=== PATIENT | female | born 1960 | race American Indian/Alaskan Native ===

== ENCOUNTER 2016-12-01 23:49 | Inpatient (IN) | payer OTHER ==
[2016-12-01 23:49] VITALS: BMI 34.4
--- NOTE | 2016-12-02 00:55 | C.PDOC ---
History Of Present Illness Patient, with a past medical history of gastritis, gall bladder disease, diverticulitis, kidney stones and CAD, presents to the ED complaining of abdominal pain since yesterday. Patient also complains of nausea and vomiting. She has been unable to tolerate po. Patient denies fever or chills. Time Seen by Provider: 12/02/16 00:55 Chief Complaint (Nursing): Abdominal Pain History Per: Patient History/Exam Limitations: no limitations Onset/Duration Of Symptoms: Days (1) Current Symptoms Are (Timing): Still Present Context: Other Severity: Mild Pain Scale Rating Of: 3 Location Of Pain/Discomfort: Diffuse Radiation Of Pain To:: None Quality Of Discomfort: "Pain" Associated Symptoms: Nausea, Vomiting Alleviating Factors: None Last Bowel Movement: Today Recent travel outside of the [place]: No Past Medical History Reviewed: Historical Data, Nursing Documentation, Vital Signs Vital Signs: Last Vital Signs Temp 98.4 F 12/02/16 05:13 Pulse 83 12/02/16 05:13 Resp 16 12/02/16 05:13 BP 149/87 12/02/16 05:13 Pulse Ox 97 12/02/16 05:13 - Medical History PMH: Anxiety, Arthritis (LBP/SCIATICA), Asthma, CAD, COPD (ASTHMA), Depression, Diverticulitis, Gastritis, Gall Bladder Disease, HTN, Hypercholesterolemia, Kidney Stones, Malignancy (CANCER?), Pancreatitis, Seizures Surgical History: Appendectomy, Cholecystectomy, Endoscopy - [facility] Procedures CLOSED ENDOSCOPIC BIOPSY OF LARGE INTESTINE (04/26/13) ENDO EXCISION/DEST OF LESION OR TISSUE OF STOMACH (12/28/13) ESOPHAGOGASTRODUODENOSCOPY [EGD] W/CLOSED BIOPSY (04/26/13) INCIS W REM OF FORIEGN BODY OR DEV FROM SKIN & SUBCUT TISSUE (10/10/13) OTHER ENDOSCOPY OF SM INTEST (02/06/13) VENOUS CATHETERIZATION NEC (02/13/14) Family History: States: Unknown Family Hx - Social History Hx Tobacco Use: No Hx Alcohol Use: Yes Hx Substance Use: No - Immunization History Hx Tetanus Toxoid Vaccination: No Hx Influenza Vaccination: Yes Hx Pneumococcal Vaccination: Yes Review Of Systems Constitutional: Negative for: Fever, Chills ENT: Negative for: Throat Pain Cardiovascular: Negative for: Chest Pain, Palpitations Respiratory: Negative for: Shortness of Breath Gastrointestinal: Positive for: Nausea, Vomiting, Abdominal Pain Genitourinary: Negative for: Dysuria Musculoskeletal: Negative for: Back Pain Skin: Negative for: Rash, Lesions Neurological: Negative for: Weakness Psych: Negative for: Anxiety Physical Exam - Physical Exam Appears: Non-toxic, No Acute Distress Skin: Warm, Dry Head: Atraumatic, Normacephalic Eye(s): bilateral: Normal Inspection Oral Mucosa: Moist Neck: Supple Chest: Symmetrical Cardiovascular: Rhythm Regular Respiratory: No Rales, No Rhonchi, No Wheezing Gastrointestinal/Abdominal: Soft, Tenderness (diffuse), Distention, Guarding ( voluntary), No Rebound, Other (large midline surgical scar (+)healed) Back: No CVA Tenderness Extremity: Pedal Edema (trace) Extremity: Bilateral: Atraumatic, Normal Color And Temperature Neurological/Psych: Oriented x3, Normal Speech, Normal Cognition Gait: Steady ED Course And Treatment - Laboratory Results Result Diagrams: 12/02/16 01:17 04 01:17 O2 Sat by Pulse Oximetry: 97 (RA) Pulse Ox Interpretation: Normal Progress Note: Plan: Labs, Benadryl, Pepcid, IV fluids, Toradol, Zofran Disposition Discussed With : Felisa Ventura Comment: accepted the pt on his service and took over the care at 5:33 AM Doctor Will See Patient In The: Hospital Counseled Patient/Family Regarding: Studies Performed, Diagnosis - Disposition Disposition: HOSPITALIZED Disposition Time: 00:55 Condition: FAIR - POA Present On Arrival: Poor Glycemic Control - Clinical Impression Clinical Impression: Abdominal pain, Nausea, Vomiting, Small bowel obstruction - Scribe Statement The provider has reviewed the documentation as recorded by the Scribjordin Cook Provider Attestation: All medical record entries made by the Scribe were at my direction and personally dictated by me. I have reviewed the chart and agree that the record accurately reflects my personal performance of the history, physical exam, medical decision making, and the department course for this patient. I have also personally directed, reviewed, and agree with the discharge instructions and disposition. Decision To Admit - Pt Status Changed To: Hospital Disposition Of: Inpatient - Admit Certification Admit to Inpatient:: After my assessment, the patient will require hospitalization for at least two midnights. This is because of the severity of symptoms shown, intensity of services needed, and/or the medical risk in this patient being treated as an outpatient. - InPatient: Physician Admission Certification:: After my assessment, the patient will require hospitalization for at least two midnights. This is because of the severity of symptoms shown, intensity of services needed, and/or the medical risk in this patient being treated as an outpatient. - . Bed Request Type: Regular Admitting Physician: Felisa Ventura Patient Diagnosis: Abdominal pain, Nausea, Vomiting, Small bowel obstruction
[2016-12-02] MEDS ORDERED: Sodium Chloride 0.9% 1,000 ML IV ONE (01:01)
[2016-12-02] MEDS ORDERED: DiphenhydrAMINE 50 mg/ml Inj IVP STA (01:14)
[2016-12-02] MEDS ORDERED: Sodium Chloride 0.9% 1,000 ML ONE (01:17)
[2016-12-02 01:23] LABS: BASO % 0.2 % (0.0-2.0); HEMATOCRIT 37.3 % (34.0-47.0); LYMPH # 0.7 K/uL (1.0-4.3); MEAN CELL VOLUME 78.8 fL (81.0-99.0); MEAN CORPUSCULAR HEMOGLOBIN 25.1 pg (27.0-31.0); MEAN CORPUSCULAR HGB CONC 31.9 g/dL (33.0-37.0); MEAN PLATELET VOLUME 8.9 fL (7.2-11.7); MONO # 0.7 K/uL (0.0-0.8); MONO % 3.9 % (0.0-10.0); PLATELET COUNT 297 K/uL (130-400); RED CELL DISTRIBUTION WIDTH 16.1 % (11.5-14.5); WHITE BLOOD COUNT 17.5 K/uL (4.8-10.8)
[2016-12-02] MEDS ORDERED: DiphenhydrAMINE 50 mg/ml Inj ONE (01:28)
[2016-12-02 01:35] LABS: CHLORIDE 102 mmol/L (98-107); POTASSIUM 3.2 mmol/L (3.6-5.2); SODIUM 144 mmol/L (132-148)
[2016-12-02 01:37] LABS: BILIRUBIN,TOTAL 0.6 mg/dL (0.2-1.3); CARBON DIOXIDE 27 mmol/L (22-30); GFR AFRICAN-AMERICAN > 60
[2016-12-02 01:38] LABS: ALB/GLOB RATIO 1.1 (1.0-2.1); ALKALINE PHOSPHATASE 109 U/L (38-126); ALT/SGPT 18 U/L (9-52); AST/SGOT 21 U/L (14-36); BLOOD UREA NITROGEN 10 mg/dL (7-17); CALCIUM 8.7 mg/dl (8.6-10.4); GLUCOSE,RANDOM 130 mg/dL (65-105); TOTAL PROTEIN 8.2 g/dL (6.3-8.3)
[2016-12-02 01:52] LABS: NEUTROPHIL 91 % (50-75); TOTAL CELLS COUNTED 100
[2016-12-02] MEDS ORDERED: Piperacillin/Tazobact 3.375 gm 100 ML IVPB STA (01:55)
[2016-12-02] MEDS ORDERED: HYDROmorphone 1 mg/ml ISec ONE ×2 (02:22→05:34)
[2016-12-02] MEDS ORDERED: HYDROmorphone 1 mg/ml ISec IVP STA ×2 (02:25→05:37)
[2016-12-02] MEDS ORDERED: Iohexol 350mg/ml 100 ML ONE (02:30)
[2016-12-02] MEDS ORDERED: Iodixanol 320 mg/ml 150 ml Bottle IV ONE (03:13)
[2016-12-02 03:31] LABS: RBC URINE 1 /hpf (0-3); URINE BACTERIA RARE (<OCC); URINE BILIRUBIN NEGATIVE (NEGATIVE); URINE BLOOD NEGATIVE (NEGATIVE); URINE COLOR Yellow (YELLOW); URINE GLUCOSE (UA) NORMAL (Normal); URINE HYALINE CAST 0-2 /lpf (0-2); URINE KETONE NEGATIVE (NEGATIVE); URINE LEUKOCYTE ESTERASE 1+ Leu/uL (Negative); URINE PROTEIN 1+ mg/dL (NEGATIVE); URINE UROBILINOGEN NORMAL mg/dL (0.2-1.0); WBC URINE 14 /hpf (0-5)
[2016-12-02] MEDS ORDERED: Dextrose 5%/0.45% NS 1,000 ML IV SCH (06:00)
[2016-12-02] MEDS ORDERED: ALBUTEROL 0.083% INH PRN (06:06)
[2016-12-02] MEDS ORDERED: Fluticasone-Salmeterol 250-50mcg Diskus IH PRN (06:06)
[2016-12-02] MEDS ORDERED: CAMBIA PO PRN (06:06)
[2016-12-02] MEDS ORDERED: CARAFATE PO SCH (07:30)
[2016-12-02] MEDS ORDERED: Dextrose 5%/0.45% NS 1,000 ML IV ONE (07:41)
[2016-12-02] MEDS ORDERED: Potassium Chloride 20 mEq ER Tab PO ONE (07:54)
--- NOTE | 2016-12-02 09:13 | CP.PCM.PN ---
Subjective - Date & Time of Evaluation Date of Evaluation: 12/02/16 Time of Evaluation: 07:00 - Subjective Subjective: Medicine Note- Dr. Ventura's service Patient was seen and examined at bedside. Patient has hx of seizures, lupus, asthma, htn, colitis, chronic pancreatitis. She complains of abdominal pain that started about 2 weeks ago, mid epigastric, but did not seek treatment because it had self resolved. On Thursday, the pain because very intense, over 10/ 10, and she began to vomit multiple times. She says she was unable to tolerate food. Patient reports she has had a colectectomy in the past due to complications of back closer-related laparoscopic surgery and has had multiple surgeries for lysis of adhesions. She reports she has had diarrhea recently. Objective - Vital Signs/Intake and Output Vital Signs (last 24 hours): Temp Pulse Resp BP Pulse Ox 98.4 F 83 16 149/87 97 12/02/16 05:13 12/02/16 05:13 12/02/16 05:13 12/02/16 05:13 12/02/16 05:42 - Medications Medications: Current Medications Alprazolam (Xanax) 1 mg PO TID [facility] Atenolol (Tenormin) 100 mg PO DAILY [facility] Baclofen (Lioresal) 10 mg PO QID [facility] Fluticasone Propionate (Flonase) 1 spr АНДРЕЙ DAILY [facility] Home Med (Albuterol 0.083%) 2 pud INH DAILY PRN PRN Reason: Shortness of Breath Home Med (Ambien) 10 mg PO HS [facility] Home Med (Brinzolamide [Azopt]) 1 drop OU BID [facility] Home Med (Calcifolic-D) 1 tab PO BID [facility] Home Med (Cambia) 50 mg PO DAILY PRN PRN Reason: Pain Home Med (Lipase/Protease/Amylase [Zenpep Dr 25,000 Units Capsule]) 1 each PO TID [facility] Home Med (Lumigan 2.5 Ml) 1 drop OU HS [facility] Home Med (Pancrelipase [Pancrease Mt 32]) 1 tab PO BID [facility] Home Med (Vimpat) 200 mg PO BID [facility] Home Med (Zoloft) 100 mg PO BID [facility] Hydromorphone HCl (Dilaudid) 1 mg IVP Q4H PRN PRN Reason: Pain, severe (8-10) Dextrose/Sodium Chloride (Dextrose 5%/0.45% Ns 1000 Ml) 1,000 mls @ 100 mls/hr IV .Q10H [facility] Last Admin: 12/02/16 08:10 Dose: 100 mls/hr Pantoprazole Sodium (Protonix Inj) 40 mg IVP DAILY [facility] Fluticasone/Salmeterol (Advair Diskus 250/50) 1 puff IH Q12 PRN PRN Reason: Shortness of Breath Sucralfate (Carafate Oral Susp) 1 gm PO ACTID [facility] - Labs Labs: PT 11.1 SECONDS (9.7-12.2) 12/02/16 01:17 INR 1.0 12/02/16 01:17 APTT 26 SECONDS (21-34) 12/02/16 01:17 - Constitutional Appears: Non-toxic, No Acute Distress - Head Exam Head Exam: ATRAUMATIC, NORMAL INSPECTION, NORMOCEPHALIC - Eye Exam Pupil Exam: NORMAL ACCOMODATION, PERRL - ENT Exam ENT Exam: Mucous Membranes Moist - Respiratory Exam Respiratory Exam: Clear to Ausculation Bilateral, NORMAL BREATHING PATTERN. absent: Prolonged Expiratory Phase, Rales, Rhonchi, Wheezes - Cardiovascular Exam Cardiovascular Exam: REGULAR RHYTHM, +S1, +S2 - GI/Abdominal Exam GI & Abdominal Exam: Soft, Tenderness (epigastric, RUQ), Normal Bowel Sounds. absent: Diminished Bowel Sounds, Hernia, Hypoactive Bowel Sounds - Extremities Exam Extremities Exam: Normal Capillary Refill, Normal Inspection - Neurological Exam Neurological Exam: Alert, Awake, Oriented x3 - Psychiatric Exam Psychiatric exam: Normal Affect, Normal Mood - Skin Skin Exam: Dry, Intact, Normal Color, Warm Assessment and Plan (1) Partial small bowel obstruction Assessment & Plan: Consult GI- Dr. Pena Consult Surgery- Dr. Vargas Dilaudid 1mg IVP Q4h PRN Baclofen PO QID Abdomen/Pelvis CT w IV contrast- s/p prior SB surgery. Findings consistent with partial small bowel obstruction. 17mm indeterminate lesiona rising from upper pole of right kidney Keep patient NPO except meds f/u stool occult Status: Acute (2) Insomnia Assessment & Plan: Ambien 10mg PO HS Status: Chronic (3) HTN (hypertension) Assessment & Plan: Atenolol 100mg PO Daily Status: Acute (4) Asthma Assessment & Plan: Continue Advair 25/50mcg 1 puff IH Q12h Continue Albuterol 2 puff INH Q6h PRN Status: Acute (5) Anxiety Assessment & Plan: Xanax 1mg PO TID Status: Acute (6) Major depression Assessment & Plan: Continue Zoloft 100mg PO BID Status: Chronic (7) Seizure disorder Assessment & Plan: Vimpat 200mg PO BID Status: Chronic (8) Chronic pancreatitis Assessment & Plan: Zenpep 25,000 PO TID Status: Acute (9) Prophylactic measure Assessment & Plan: Protonix 40mg IVP Daily SCDs Status: Acute
[2016-12-02] MEDS ORDERED: Albuterol HFA 90 mcg/actuation (8 g) INH PRN (09:23)
[2016-12-02] MEDS: HYDROmorphone 1 mg/ml ISec IVP PRN ×3 (09:59→22:29)
[2016-12-02] MEDS ORDERED: AMYLASE PO SCH (10:00)
[2016-12-02] MEDS ORDERED: PROTEASE PO SCH (10:00)
[2016-12-02] MEDS ORDERED: [UNRECOGNIZED DRUG - OTHER] PO SCH (10:00)
[2016-12-02] MEDS ORDERED: Fluticasone-Salmeterol 250-50mcg Diskus IH SCH (10:00)
[2016-12-02] MEDS ORDERED: BRINZOLAMIDE OU SCH (10:00)
[2016-12-02] MEDS ORDERED: ZOLOFT 100 MG PO SCH (10:00)
[2016-12-02] MEDS ORDERED: PANCRELIPASE PO SCH (10:00)
[2016-12-02] MEDS ORDERED: VIMPAT 200 MG PO SCH ×2 (10:00→18:00)
[2016-12-02] MEDS ORDERED: LIPASE PO SCH (10:00)
--- NOTE | 2016-12-02 11:19 | CT ---
PROCEDURE: CT Abdomen and Pelvis with contrast HISTORY: abd pain COMPARISON: CT abdomen and pelvis with contrast performed 02/13/14 TECHNIQUE: Contrast dose: 100 mL Visipaque Radiation dose: Total exam DLP = 987.96 mGy-cm. This CT exam was performed using one or more of the following dose reduction techniques: Automated exposure control, adjustment of the mA and/or kV according to patient size, and/or use of iterative reconstruction technique. FINDINGS: LOWER THORAX: Bibasilar atelectasis or scarring. Punctate right lower lobe calcified granulomas. No visible pleural effusion or pneumothorax. LIVER: 4 mm hepatic dome hypodensity, too small to characterize ; statistically likely cyst or hemangioma. GALLBLADDER AND BILE DUCTS: Cholecystectomy. Mild intrahepatic and extrahepatic biliary ductal dilatation, likely related to prior cholecystectomy. PANCREAS: Unremarkable. SPLEEN: Unremarkable. ADRENALS: Unremarkable. KIDNEYS AND URETERS: The kidneys enhance symmetrically. Indeterminate 1.6 cm medial upper pole right renal lesion. 17 mm hypodense lesion, left renal lesion measures approximately 10 HU, likely cyst. Additional too small to characterize hypodensities/renal cysts. VASCULATURE: IVC filter. No aortic aneurysm. BOWEL: The stomach is nondistended. Lack of oral contrast limits evaluation for bowel pathology. The patient has undergone prior bowel surgery. Multiple dilated fluid-filled loops of small bowel evident with collapsed distal small bowel identified in the right lower quadrant at a region anastomosis, likely at the transition point. APPENDIX: The appendix is not identified, presumably due to appendectomy. Correlate with surgical history. PERITONEUM: No significant free fluid. No definite free air. LYMPH NODES: No bulky adenopathy identified. BLADDER: Unremarkable. REPRODUCTIVE: Uterus is present. BONES: Degenerative changes. OTHER FINDINGS: None. IMPRESSION: Status post prior small bowel surgery. Multiple dilated fluid-filled loops of small bowel identified with suspected transition point in the right lower quadrant at the region of anastomosis. Findings consistent with partial small bowel obstruction. Correlate clinically. Indeterminate 1.6 cm medial right upper pole renal lesion, grossly stable in size and appearance as compared to prior study. If not already performed or characterized, ultrasound or MRI recommended for further evaluation. Additionally, bilateral renal cysts and too small to characterize renal lesions are evident. Additional incidental findings as above. Preliminary impression was provided by virtual radiologic.
[2016-12-02] MEDS: Fluticasone Nasal 50 mcg/Spray NAS SCH (12:30)
[2016-12-02] MEDS: Sucralfate 1 gm/10 ml Oral Susp UD PO SCH ×2 (15:19→17:53)
[2016-12-02] MEDS: Multiple Vitamins Tab PO SCH (15:20)
[2016-12-02] MEDS: LIPASE/PROTEASE/AMYLASE 4,200 U ECC PO SCH ×2 (15:21→17:54)
[2016-12-02] MEDS: Dorzolamide 2% Opht Sol 10ml OU SCH ×2 (15:26→18:20)
--- NOTE | 2016-12-02 16:48 | CP.PCM.PN ---
Subjective - Date & Time of Evaluation Date of Evaluation: 12/02/16 Time of Evaluation: 16:43 - Subjective Subjective: 56 y/o female with SBO, NGT #16 fr to right nare inserted as per Dr. Vargas order, NGT to LCWS, Pt tolerated well, Xray ordered for NGT placement Objective - Vital Signs/Intake and Output Vital Signs (last 24 hours): Temp Pulse Resp BP Pulse Ox 97.7 F 89 18 132/85 96 12/02/16 09:43 12/02/16 09:43 12/02/16 09:43 12/02/16 09:43 12/02/16 09:43 - Medications Medications: Current Medications Albuterol (Ventolin Hfa 90 Mcg/Actuation (8 G)) 0 puff INH Q6H PRN PRN Reason: Shortness of Breath Alprazolam (Xanax) 1 mg PO TID [facility] Last Admin: 12/02/16 15:22 Dose: Not Given Atenolol (Tenormin) 100 mg PO DAILY [facility] Last Admin: 12/02/16 15:28 Dose: Not Given Baclofen (Lioresal) 10 mg PO QID [facility] Last Admin: 12/02/16 15:21 Dose: Not Given Dorzolamide HCl (Trusopt) 0 ml OU TID [facility] Last Admin: 12/02/16 15:26 Dose: 1 drop Fluticasone Propionate (Flonase) 1 spr АНДРЕЙ DAILY [facility] Last Admin: 12/02/16 12:30 Dose: 1 spr Home Med (Vimpat) 200 mg PO BID [facility] Hydromorphone HCl (Dilaudid) 1 mg IVP Q4H PRN PRN Reason: Pain, severe (8-10) Last Admin: 12/02/16 09:59 Dose: 1 mg Potassium Chloride/Dextrose/Sod Cl (Potassium Chl 20 Meq In D5-1/2ns) 1,000 mls @ 125 mls/hr IV .Q8H [facility] Latanoprost (Xalatan Opht) 0 ml OU HS [facility] Metoclopramide HCl (Reglan) 5 mg IVP ACHS [facility] Multivitamins (Hexavitamin) 1 tab PO DAILY [facility] Last Admin: 12/02/16 15:20 Dose: Not Given Pantoprazole Sodium (Protonix Inj) 40 mg IVP DAILY [facility] Last Admin: 12/02/16 15:29 Dose: 40 mg Fluticasone/Salmeterol (Advair Diskus 250/50) 1 puff IH Q12 [facility] Sertraline HCl (Zoloft) 100 mg PO BID [facility] Sucralfate (Carafate Oral Susp) 1 gm PO ACTID [facility] Last Admin: 12/02/16 15:19 Dose: Not Given Zolpidem Tartrate (Ambien) 5 mg PO HS [facility] - Labs Labs: PT 11.1 SECONDS (9.7-12.2) 12/02/16 01:17 INR 1.0 12/02/16 01:17 APTT 26 SECONDS (21-34) 12/02/16 01:17
[2016-12-02] MEDS: Potassium Ch 20mEq in D5-1/2NS 1,000 ML IV SCH ×2 (17:44→23:37)
--- NOTE | 2016-12-02 17:48 | RAD ---
HISTORY: to confirm NGT placement COMPARISON: 06/07/2015 FINDINGS: LUNGS: NG tube extending into the stomach. Moderate venous congestion. Bibasilar airspace opacity. Pacer device projecting over the left lateral chiquis thorax. PLEURA: As above. CARDIOVASCULAR: Cardiomegaly. OSSEOUS STRUCTURES: Degenerative changes the spine shoulders. VISUALIZED UPPER ABDOMEN: Normal. OTHER FINDINGS: None. IMPRESSION: NG tube extending into the stomach. Moderate venous congestion. Bibasilar airspace opacity. Pacer device projecting over the left lateral chiquis thorax.
[2016-12-02] MEDS: Fluticasone-Salmeterol 250-50mcg Diskus IH SCH (19:22)
[2016-12-02] MEDS: Latanoprost 2.5 ml Opht Soln OU SCH (21:17)
[2016-12-02] MEDS: Piperacillin/Tazobact 3.375 GM in Sodium Chloride 0.9% 100 ML IVPB SCH (21:18)
[2016-12-03] MEDS: Potassium Ch 20mEq in D5-1/2NS 1,000 ML IV SCH ×2 (02:37→09:32)
[2016-12-03] MEDS: HYDROmorphone 1 mg/ml ISec IVP PRN ×4 (05:08→18:11)
[2016-12-03] MEDS: Piperacillin/Tazobact 3.375 GM in Sodium Chloride 0.9% 100 ML IVPB SCH ×3 (05:15→22:19)
[2016-12-03] MEDS: Sucralfate 1 gm/10 ml Oral Susp UD PO SCH ×3 (07:40→16:49)
[2016-12-03] MEDS: Fluticasone-Salmeterol 250-50mcg Diskus IH SCH ×2 (07:42→19:37)
[2016-12-03 08:03] LABS: BASO % 0.3 % (0.0-2.0); EOS # 0.1 K/uL (0.0-0.7); EOS % 1.1 % (0.0-4.0); HEMATOCRIT 33.9 % (34.0-47.0); LYMPH # 1.3 K/uL (1.0-4.3); LYMPH % 21.5 % (20.0-40.0); MEAN CELL VOLUME 79.2 fL (81.0-99.0); MEAN CORPUSCULAR HEMOGLOBIN 25.2 pg (27.0-31.0); MEAN CORPUSCULAR HGB CONC 31.8 g/dL (33.0-37.0); MEAN PLATELET VOLUME 8.8 fL (7.2-11.7); MONO # 0.4 K/uL (0.0-0.8); MONO % 7.4 % (0.0-10.0); NRBC % 0.2 % (0.0-2.0); RED CELL DISTRIBUTION WIDTH 16.3 % (11.5-14.5)
[2016-12-03 08:07] LABS: WHITE BLOOD COUNT 5.9 K/uL (4.8-10.8)
[2016-12-03 08:14] LABS: CHLORIDE 106 mmol/L (98-107)
[2016-12-03 08:15] LABS: POTASSIUM 2.8 mmol/L (3.6-5.2); SODIUM 144 mmol/L (132-148)
[2016-12-03 08:17] LABS: ALB/GLOB RATIO 1.1 (1.0-2.1); ALKALINE PHOSPHATASE 118 U/L (38-126); AST/SGOT 32 U/L (14-36); BILIRUBIN,TOTAL 0.5 mg/dL (0.2-1.3); BLOOD UREA NITROGEN 5 mg/dL (7-17); CARBON DIOXIDE 26 mmol/L (22-30); GFR AFRICAN-AMERICAN > 60; GLUCOSE,RANDOM 105 mg/dL (65-105); TOTAL PROTEIN 6.8 g/dL (6.3-8.3)
[2016-12-03 08:18] LABS: ALT/SGPT 30 U/L (9-52); CALCIUM 7.8 mg/dl (8.6-10.4)
[2016-12-03] MEDS ORDERED: Barium Sulfate for Susp 96% w/w 176g Bottle PR ONE (09:00)
[2016-12-03] MEDS ORDERED: Barium Sulfate for Susp 98% w/w 340g Bottle ONE (09:00)
--- NOTE | 2016-12-03 09:07 | CP.PCM.PN ---
Subjective - Date & Time of Evaluation Date of Evaluation: 12/03/16 Time of Evaluation: 09:15 - Subjective Subjective: Medicine note- Dr. Ventura's service Patient was seen and examined at bedside. Patient reports she feels like 'the walking '. She still has significant abdominal pain and nausea, no vomiting. No events overnight, per nursing. NGT in place by Dr. Vargas. Objective - Vital Signs/Intake and Output Vital Signs (last 24 hours): Temp Pulse Resp BP Pulse Ox 98.1 F 89 20 155/85 H 96 12/03/16 00:00 12/03/16 00:19 12/03/16 00:00 12/03/16 00:00 12/03/16 00:00 Intake and Output: 12/03/16 12/03/16 06:59 18:59 Intake Total 1150 Output Total 2800 Balance -1650 - Medications Medications: Current Medications Albuterol (Ventolin Hfa 90 Mcg/Actuation (8 G)) 0 puff INH Q6H PRN PRN Reason: Shortness of Breath Alprazolam (Xanax) 1 mg PO TID [facility] Last Admin: 12/02/16 18:00 Dose: Not Given Atenolol (Tenormin) 100 mg PO DAILY [facility] Last Admin: 12/02/16 15:28 Dose: Not Given Baclofen (Lioresal) 10 mg PO QID [facility] Last Admin: 12/02/16 22:40 Dose: Not Given Dorzolamide HCl (Trusopt) 0 ml OU TID [facility] Last Admin: 12/02/16 18:20 Dose: 1 drop Fluticasone Propionate (Flonase) 1 spr АНДРЕЙ DAILY [facility] Last Admin: 12/02/16 12:30 Dose: 1 spr Hydromorphone HCl (Dilaudid) 1 mg IVP Q4H PRN PRN Reason: Pain, severe (8-10) Last Admin: 12/03/16 05:08 Dose: 1 mg Potassium Chloride/Dextrose/Sod Cl (Potassium Chl 20 Meq In D5-1/2ns) 1,000 mls @ 125 mls/hr IV .Q8H [facility] Last Admin: 12/03/16 02:37 Dose: 125 mls/hr Levetiracetam 750 mg/ Sodium (Chloride) 107.5 mls @ 420 mls/hr IVPB Q12H [facility] Last Admin: 12/03/16 05:06 Dose: 420 mls/hr Piperacillin Sod/Tazobactam (Sod 3.375 gm/ Sodium Chloride) 100 mls @ 100 mls/ hr IVPB Q8H [facility] Last Admin: 12/03/16 05:15 Dose: 100 mls/hr Latanoprost (Xalatan Opht) 0 ml OU HS [facility] Last Admin: 12/02/16 21:17 Dose: 2.5 ml Multivitamins (Hexavitamin) 1 tab PO DAILY [facility] Last Admin: 12/02/16 15:20 Dose: Not Given Ondansetron HCl (Zofran Inj) 4 mg IVP DAILY@ONCE PRN PRN Reason: Nausea/Vomiting Pantoprazole Sodium (Protonix Inj) 40 mg IVP DAILY [facility] Last Admin: 12/02/16 15:29 Dose: 40 mg Fluticasone/Salmeterol (Advair Diskus 250/50) 1 puff IH RQ12 [facility] Last Admin: 12/03/16 07:42 Dose: 1 puff Sertraline HCl (Zoloft) 100 mg PO BID [facility] Last Admin: 12/02/16 18:00 Dose: Not Given Sucralfate (Carafate Oral Susp) 1 gm PO ACTID [facility] Last Admin: 12/03/16 07:40 Dose: Not Given Zolpidem Tartrate (Ambien) 5 mg PO HS [facility] Last Admin: 12/02/16 22:39 Dose: Not Given - Labs Labs: 12/03/16 07:49 12/03/16 07:49 PT 11.1 SECONDS (9.7-12.2) 12/02/16 01:17 INR 1.0 12/02/16 01:17 APTT 26 SECONDS (21-34) 12/02/16 01:17 - Constitutional Appears: Non-toxic, No Acute Distress - Head Exam Head Exam: ATRAUMATIC, NORMAL INSPECTION, NORMOCEPHALIC - Eye Exam Pupil Exam: NORMAL ACCOMODATION - ENT Exam ENT Exam: Mucous Membranes Moist - Respiratory Exam Respiratory Exam: Clear to Ausculation Bilateral, NORMAL BREATHING PATTERN. absent: Prolonged Expiratory Phase, Rales, Rhonchi, Wheezes - GI/Abdominal Exam GI & Abdominal Exam: Soft, Tenderness (significant LUQ, RLQ tenderness), Hypoactive Bowel Sounds - Neurological Exam Neurological Exam: Alert, Awake, CN II-XII Intact, Oriented x3 - Psychiatric Exam Psychiatric exam: Normal Affect, Normal Mood - Skin Skin Exam: Dry, Intact, Normal Color, Warm Assessment and Plan (1) Partial small bowel obstruction Status: Acute (2) Insomnia Status: Chronic (3) HTN (hypertension) Status: Acute (4) Asthma Status: Acute (5) Anxiety Status: Acute (6) Major depression Status: Chronic (7) Seizure disorder Status: Chronic (8) Chronic pancreatitis Status: Acute (9) Prophylactic measure Status: Acute - Assessment and Plan (Free Text) Assessment: (1) Partial small bowel obstruction Assessment & Plan: Consult GI- Dr. Pena- scheduled for EGD today Consult Surgery- Dr. Vargas- pending GI X rays Dilaudid 1mg IVP Q4h PRN Baclofen PO QID Abdomen/Pelvis CT w IV contrast- s/p prior SB surgery. Findings consistent with partial small bowel obstruction. 17mm indeterminate lesiona rising from upper pole of right kidney Keep patient NPO except meds f/u stool occult Zofran 4mg IVP Q6h PRN Status: Acute (2) Insomnia Assessment & Plan: Ambien 10mg PO HS Status: Chronic (3) HTN (hypertension) Assessment & Plan: Atenolol 100mg PO Daily Status: Acute (4) Asthma Assessment & Plan: Continue Advair 25/50mcg 1 puff IH Q12h Continue Albuterol 2 puff INH Q6h PRN Status: Acute (5) Anxiety Assessment & Plan: Xanax 1mg PO TID Status: Acute (6) Major depression Assessment & Plan: Continue Zoloft 100mg PO BID Status: Chronic (7) Seizure disorder Assessment & Plan: Vimpat 200mg PO BID is unavailable. Consult Neuro- Dr. Contreras Continue Keppra 75mg IVPB Q12h Status: Chronic (8) Chronic pancreatitis Assessment & Plan: Zenpep 25,000 PO TID Status: Acute (9) Prophylactic measure Assessment & Plan: Protonix 40mg IVP Daily SCDs Status: Acute
[2016-12-03] MEDS: LIPASE/PROTEASE/AMYLASE 4,200 U ECC PO SCH ×3 (09:31→18:13)
[2016-12-03] MEDS: Dorzolamide 2% Opht Sol 10ml OU SCH ×3 (09:53→18:28)
[2016-12-03] MEDS: Multiple Vitamins Tab PO SCH (09:54)
[2016-12-03] MEDS: Fluticasone Nasal 50 mcg/Spray NAS SCH (09:54)
[2016-12-03] MEDS ORDERED: Fluticasone Nasal 50 mcg/Spray NAS SCH (10:15)
[2016-12-03] MEDS ORDERED: Midazolam 2 MG/2 ML VIAL ONE (12:39)
[2016-12-03] MEDS ORDERED: Propofol 10 mg/ml Inj (20 ML) ONE (12:39)
[2016-12-03] MEDS: Potassium Chl 40 mEq in D5-1/2 1,000 ML IV SCH ×3 (12:53→22:59)
[2016-12-03] MEDS: DiphenhydrAMINE 50 mg/ml Inj IVP PRN (18:11)
[2016-12-03] MEDS: Latanoprost 2.5 ml Opht Soln OU SCH (22:18)
[2016-12-04] MEDS: Potassium Chl 40 mEq in D5-1/2 1,000 ML IV SCH ×4 (00:16→22:06)
[2016-12-04] MEDS: HYDROmorphone 1 mg/ml ISec IVP PRN ×4 (00:29→21:37)
[2016-12-04] MEDS: DiphenhydrAMINE 50 mg/ml Inj IVP PRN ×3 (02:33→16:51)
[2016-12-04] MEDS: Piperacillin/Tazobact 3.375 GM in Sodium Chloride 0.9% 100 ML IVPB SCH ×2 (06:01→21:32)
[2016-12-04 06:59] LABS: CHLORIDE 104 mmol/L (98-107); POTASSIUM 2.8 mmol/L (3.6-5.2); SODIUM 142 mmol/L (132-148)
[2016-12-04 07:01] LABS: ALB/GLOB RATIO 1.1 (1.0-2.1); AST/SGOT 19 U/L (14-36); BILIRUBIN,TOTAL 0.6 mg/dL (0.2-1.3); CARBON DIOXIDE 30 mmol/L (22-30); GFR AFRICAN-AMERICAN > 60; TOTAL PROTEIN 6.6 g/dL (6.3-8.3)
[2016-12-04 07:02] LABS: ALKALINE PHOSPHATASE 138 U/L (38-126); ALT/SGPT 28 U/L (9-52); CALCIUM 7.6 mg/dl (8.6-10.4); GLUCOSE,RANDOM 95 mg/dL (65-105); MAGNESIUM 1.7 mg/dL (1.6-2.3); PHOSPHOROUS 3.4 mg/dL (2.5-4.5)
[2016-12-04 07:04] LABS: BLOOD UREA NITROGEN 2 mg/dL (7-17)
[2016-12-04 07:14] LABS: BASO % 0.2 % (0.0-2.0); EOS # 0.1 K/uL (0.0-0.7); EOS % 1.4 % (0.0-4.0); HEMATOCRIT 32.8 % (34.0-47.0); LYMPH # 1.5 K/uL (1.0-4.3); LYMPH % 22.6 % (20.0-40.0); MEAN CORPUSCULAR HEMOGLOBIN 24.7 pg (27.0-31.0); MEAN CORPUSCULAR HGB CONC 31.3 g/dL (33.0-37.0); MEAN PLATELET VOLUME 8.6 fL (7.2-11.7); MONO # 0.5 K/uL (0.0-0.8); MONO % 7.5 % (0.0-10.0); RED CELL DISTRIBUTION WIDTH 16.4 % (11.5-14.5); WHITE BLOOD COUNT 6.6 K/uL (4.8-10.8)
[2016-12-04] MEDS: Sucralfate 1 gm/10 ml Oral Susp UD PO SCH ×3 (07:43→16:50)
[2016-12-04] MEDS: Fluticasone-Salmeterol 250-50mcg Diskus IH SCH ×2 (07:45→20:12)
[2016-12-04] MEDS ORDERED: Potassium Chloride 20 mEq 100 ML IVPB ONE (07:48)
--- NOTE | 2016-12-04 07:51 | CON ---
DATE: 12/04/2016 ROOM NUMBER: 5701, bed A. ATTENDING PHYSICIAN: Felisa Asif MD REASON FOR THE CONSULTATION: Seizures. CHIEF COMPLAINT: The patient was admitted with severe acute abdominal problem. History of seizure disorder. From neurological point of view, I was called in to evaluate her for further management. HISTORY OF PRESENTING ILLNESS: The patient is a 56-year-old moderately obese, -Stateless female who is known to me from her previous hospitalization. 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 However, she admits VNS is not kicking her a pulse and not controlling anymore. However, she is seizure free for a long time. Because of the acute stomach problem, antiepileptics are on hold and medication been switched to Keppra in IV at present. PAST MEDICAL HISTORY: Anxiety, arthritis, asthma, coronary artery disease, COPD , depression, diverticulitis, gastritis, gallbladder disease, hypertension, dyslipidemia, kidney stone, occult malignancy seizure disorder, vagus nerve stimulation placed. SOCIAL HISTORY: No history of smoking, no alcohol use, no history of substance abuse. REVIEW OF SYSTEMS: As per H and P. CURRENT MEDICATIONS: Advair, Ambien, Benadryl, Carafate, Dilaudid, Flonase, vitamin, baclofen, tazobactam, IV fluids, pantoprazole, atenolol, albuterol and Keppra. PHYSICAL EXAMINATION: VITAL SIGNS: Blood pressure 140/80, mean arterial pressure of 100, respiratory rate 16, temperature afebrile. NECK: Supple. HEENT: The patient on NG tube. HEART SOUNDS: Regular. NEUROLOGIC EXAMINATION: MENTAL STATUS: She is awake, alert, oriented to person, place, and time. Speech is clear. Naming, repetition, fluency, comprehension all within normal. CRANIAL NERVES: Visual field intact. Pupils reactive to light. Extraocular movements normal. No nystagmus. No facial sensory deficit, no facial asymmetry. Hearing is normal. Tongue is midline. Good gag. MOTOR: On outstretched hand with eyes closed, no drift noted. Power is symmetric on either side. DEEP TENDON REFLEXES: Absent. Plantars are downgoing. SENSORY: Mild distal sensorimotor neuropathy. COORDINATION: [id number]-[id number] test is intact. GAIT: Deferred at this time. CONCLUSION: Upon reviewing her history and neurological examination, the patient been admitted with abdominal problem with IV Keppra for her seizures. The patient is seizure free for the last more than 72-hour period on new medication. BLOOD WORKUP: WBC 6.6, hemoglobin 10.3, hematocrit 32.8, platelets 236. PT 11.1, INR 1.0, PTT 26. Sodium 142, potassium 2.8, chloride 104, bicarbonate 30 , BUN 2, creatinine 0.6, GFR more than 60, calcium 7.6, magnesium 3.4, AST 0.6, ALT 28, alkaline phosphatase 138. Urinalysis shows 1+ proteinuria, WBC 14. RECOMMENDATIONS: Continue Keppra 750 twice a day for now. Close observation for seizures because of switching the antiepileptic drugs. If any seizures happen with this medication, I would like to increase the dose to 1000 twice a day. No further recommendations needed at present. I will be away for next [address] Martin will be covering me if any seizures. Mitesh Araiza MD cc: [id number] TT: 12/04/2016 07:50:46 Confirmation # [id number] Dictation # [id number] [id number]
--- NOTE | 2016-12-04 08:10 | CP.PCM.PN ---
Subjective - Date & Time of Evaluation Date of Evaluation: 12/04/16 Time of Evaluation: 07:35 - Subjective Subjective: Medicine Note- Dr. Ventura's service Patient was seen and examined at bedside. She reports that feels nauseous, and still has some abdominal pain. She said she had a bowel movement yesterday that was oily and black. Objective - Vital Signs/Intake and Output Vital Signs (last 24 hours): Temp Pulse Resp BP Pulse Ox 98.8 F 88 18 140/80 96 12/04/16 00:00 12/04/16 00:00 12/04/16 00:00 12/04/16 00:00 12/04/16 00:00 Intake and Output: 12/04/16 12/04/16 06:59 18:59 Intake Total 1000 Output Total 1075 Balance -75 - Medications Medications: Current Medications Albuterol (Ventolin Hfa 90 Mcg/Actuation (8 G)) 0 puff INH Q6H PRN PRN Reason: Shortness of Breath Alprazolam (Xanax) 1 mg PO TID [facility] Last Admin: 12/03/16 18:13 Dose: Not Given Atenolol (Tenormin) 100 mg PO DAILY [facility] Last Admin: 12/03/16 13:36 Dose: Not Given Baclofen (Lioresal) 10 mg PO QID [facility] Last Admin: 12/03/16 22:58 Dose: Not Given Diphenhydramine HCl (Benadryl) 25 mg IVP Q8H PRN PRN Reason: Itching / Pruritus Last Admin: 12/04/16 02:33 Dose: 25 mg Dorzolamide HCl (Trusopt) 0 ml OU TID [facility] Last Admin: 12/03/16 18:28 Dose: 1 drop Fluticasone Propionate (Flonase) 1 spr АНДРЕЙ DAILY [facility] Last Admin: 12/03/16 09:54 Dose: 1 spr Hydromorphone HCl (Dilaudid) 1 mg IVP Q4H PRN PRN Reason: Pain, severe (8-10) Last Admin: 12/04/16 07:46 Dose: 1 mg Levetiracetam 750 mg/ Sodium (Chloride) 107.5 mls @ 420 mls/hr IVPB Q12H [facility] Last Admin: 12/04/16 05:32 Dose: 420 mls/hr Piperacillin Sod/Tazobactam (Sod 3.375 gm/ Sodium Chloride) 100 mls @ 100 mls/ hr IVPB Q8H [facility] Last Admin: 12/04/16 06:01 Dose: 100 mls/hr Potassium Chloride/Dextrose/Sod Cl (Potassium Chl 40 Meq In D5-1/2ns) 1,000 mls @ 125 mls/hr IV .Q8H [facility] Last Admin: 12/04/16 03:00 Dose: Not Given Potassium Chloride (Potassium Chloride 20 Meq/100 Ml) 100 mls @ 50 mls/hr IVPB ONCE ONE Stop: 12/04/16 09:47 Latanoprost (Xalatan Opht) 0 ml OU HS [facility] Last Admin: 12/03/16 22:18 Dose: 2.5 ml Multivitamins (Hexavitamin) 1 tab PO DAILY [facility] Last Admin: 12/03/16 09:54 Dose: Not Given Ondansetron HCl (Zofran Inj) 4 mg IVP Q6H PRN PRN Reason: Nausea/Vomiting Pantoprazole Sodium (Protonix Inj) 40 mg IVP DAILY [facility] Last Admin: 12/03/16 09:43 Dose: 40 mg Pneumococcal Polyvalent Vaccine (Pneumovax 23 Vaccine) 0.5 ml IM .ONCE ONE Stop: 12/05/16 10:01 Fluticasone/Salmeterol (Advair Diskus 250/50) 1 puff IH RQ12 [facility] Last Admin: 12/04/16 07:45 Dose: 1 puff Sertraline HCl (Zoloft) 100 mg PO BID [facility] Last Admin: 12/03/16 18:13 Dose: Not Given Sucralfate (Carafate Oral Susp) 1 gm PO ACTID [facility] Last Admin: 12/04/16 07:43 Dose: Not Given Zolpidem Tartrate (Ambien) 5 mg PO HS [facility] Last Admin: 12/03/16 21:59 Dose: Not Given - Labs Labs: 12/04/16 06:30 12/04/16 06:30 PT 11.1 SECONDS (9.7-12.2) 12/02/16 01:17 INR 1.0 12/02/16 01:17 APTT 26 SECONDS (21-34) 12/02/16 01:17 - Constitutional Appears: Non-toxic, No Acute Distress - Head Exam Head Exam: ATRAUMATIC, NORMAL INSPECTION, NORMOCEPHALIC - Eye Exam Pupil Exam: NORMAL ACCOMODATION, PERRL - ENT Exam ENT Exam: Mucous Membranes Moist - Respiratory Exam Respiratory Exam: Clear to Ausculation Bilateral, NORMAL BREATHING PATTERN. absent: Prolonged Expiratory Phase, Rales, Rhonchi, Wheezes - Cardiovascular Exam Cardiovascular Exam: REGULAR RHYTHM, +S1, +S2 - GI/Abdominal Exam GI & Abdominal Exam: Soft, Tenderness (LUQ, LLQ), Normal Bowel Sounds - Extremities Exam Extremities Exam: Normal Capillary Refill, Normal Inspection - Neurological Exam Neurological Exam: Alert, Awake, Oriented x3 - Psychiatric Exam Psychiatric exam: Normal Affect, Normal Mood - Skin Skin Exam: Dry, Intact, Normal Color, Warm Assessment and Plan (1) Partial small bowel obstruction Status: Acute (2) Insomnia Status: Chronic (3) HTN (hypertension) Status: Acute (4) Asthma Status: Acute (5) Anxiety Status: Acute (6) Major depression Status: Chronic (7) Seizure disorder Status: Chronic (8) Chronic pancreatitis Status: Acute (9) Prophylactic measure Status: Acute - Assessment and Plan (Free Text) Assessment: (1) Partial small bowel obstruction Assessment & Plan: Consult GI- Dr. Pena- scheduled for EGD today Consult Surgery- Dr. Vargas- pending GI X rays Dilaudid 1mg IVP Q4h PRN Baclofen PO QID Abdomen/Pelvis CT w IV contrast- s/p prior SB surgery. Findings consistent with partial small bowel obstruction. 17mm indeterminate lesiona rising from upper pole of right kidney Keep patient NPO except meds f/u stool occult Zofran 4mg IVP Q6h PRN Status: Acute (2) Insomnia Assessment & Plan: Ambien 10mg PO HS Status: Chronic (3) HTN (hypertension) Assessment & Plan: Atenolol 100mg PO Daily Status: Acute (4) Asthma Assessment & Plan: Continue Advair 25/50mcg 1 puff IH Q12h Continue Albuterol 2 puff INH Q6h PRN Status: Acute (5) Anxiety Assessment & Plan: Xanax 1mg PO TID Status: Acute (6) Major depression Assessment & Plan: Continue Zoloft 100mg PO BID Status: Chronic (7) Seizure disorder Assessment & Plan: Vimpat 200mg PO BID is unavailable. Consult Neuro- Dr. Contreras Continue Keppra 75mg IVPB Q12h Status: Chronic (8) Chronic pancreatitis Assessment & Plan: Zenpep 25,000 PO TID Status: Acute (9) Prophylactic measure Assessment & Plan: Protonix 40mg IVP Daily SCDs Status: Acute (10) Hypokalemia Assessment & Plan: K+- 2.8 Continue D5 1/2 NS w KCL 40meq @ 100cc/hr Potassium Chloride 20meq IVPB Once Continue to monitor
[2016-12-04] MEDS ORDERED: Barium Sulfate for Susp 98% w/w 340g Bottle ONE (09:55)
[2016-12-04] MEDS ORDERED: Barium Sulfate for Susp 96% w/w 176g Bottle PR ONE (09:55)
[2016-12-04] MEDS: Multiple Vitamins Tab PO SCH (11:14)
[2016-12-04] MEDS: LIPASE/PROTEASE/AMYLASE 4,200 U ECC PO SCH ×2 (11:14→18:00)
[2016-12-04] MEDS: Dorzolamide 2% Opht Sol 10ml OU SCH ×2 (11:15→18:24)
--- NOTE | 2016-12-04 11:57 | PN ---
DATE: 12/04/2016 LOCATION: 571, bed A. This is a 56-year-old female, known case for me post-EGD done yesterday, seen and examined in rounds. Awake, alert, oriented, with a complaint of mild abdominal pain, but no reported active bleeding. The entire chart is reviewed, including but not limited to the most recent lab and radiology study re sults, current and the previous medication list, current and the previous medical events. Case discu ssed at length with the staff on the floor. Today's hemoglobin is 10.3 with hematocrit dropped to 32.8 with low indices, highly suggestive of hyp ochromic microcytic anemia, with low potassium again 2.8, low calcium 7.6, with low albumin 3.4. The previously done CAT scan of the abdomen and the pelvis reviewed with staff, as well as the radiol ogy team. The patient had been having a small bowel movement as reported by herself, and the passing gas. No r eported abdominal distention. PHYSICAL EXAMINATION: GENERAL: A 56-year-old female. Afebrile with pulse of 82, respiratory rate 22, blood pressure 120/74. HEENT: Showed pale, dry oral mucoid membrane. Nonicteric sclerae. LUNGS: Few scattered crepitation. Decreased air entry at bases. HEART: Positive S1 and S2. ABDOMEN: Soft. Bowel sounds are present, but excessively hypoactive with a complaint of nausea thro ugh my physical examination, the patient is seen also with the neurology educational consultant on the case. Bowel sounds are hypoactive with mild abdominal distention and generalized tenderness. No mass or or ganomegaly. No rebound tenderness or guarding. RECTAL EXAMINATION: The patient refused. EXTREMITIES: Without significant clubbing, cyanosis, or edema. IMPRESSION: 1. exacerbation of peptic ulcer disease. 2. Intermittent mild partial bowel obstruction could be secondary to adhesions. 3. Known history of bronchial asthma, severe anxiety syndrome, osteoarthritis with depression. 4. Known history of diverticulosis with recurrent diverticulitis. 5. Reported history of hypertension, hyperlipidemia. 6. Anemia, most likely secondary to above. 7. Status post appendectomy with cholecystectomy before. SUGGESTION: 1. Continue current management. 2. On a clear liquid diet in the meantime, advance it as tolerated. 3. Proton pump inhibitors. 4. No need for further aggressive GI workup in the meantime. Flo Pena MD cc: 14 TT: 12/04/2016 11:56:37 Confirmation # [id number] Dictation # [id number] jn
--- NOTE | 2016-12-04 12:14 | CON ---
DATE: 12/02/2016 REASON FOR CONSULTATION: Small-bowel obstruction. HISTORY OF PRESENT ILLNESS: This is a 56-year-old female status post multiple laparotomies including a bowel resection for adhesions and small-bowel obstruction. The last one was performed nearly 10 y ears ago. She presents today with a 3-day history of progressive abdominal pain, nausea, and vomitin g. She had some watery bowel movements this morning, but her last 2 bowel movements were 3 days ago , and last passed flatus yesterday. She was admitted after CT scan revealed a high-grade obstruction in the right lower quadrant consistent with small-bowel obstruction. PAST MEDICAL HISTORY: Significant for gastritis, gallbladder disease, diverticulitis, kidney stones, coronary artery disease. PAST SURGICAL HISTORY: As noted above, with also appendectomy and cholecystectomy. FAMILY HISTORY AND REVIEW OF SYSTEMS: Not contributory. PHYSICAL EXAMINATION: VITAL SIGNS: Temperature 98, vital signs stable. GENERAL: She is a well-developed female in no acute distress. PERTINENT PHYSICAL FINDINGS: Include tenderness in the upper quadrants with mild rebound tenderness. ABDOMEN: The abdomen is soft, however. Bowel sounds are active, and the remainder of physical exam is unremarkable. LABORATORY DATA: On admission, her white count is 17.5, which is significant. IMPRESSION: My impression is that she has a high-grade small-bowel obstruction in the right lower qu adrant. I have given orders for a nasogastric tube, Queen catheter. I increased her IV fluids and pu t her on strict I and O. Because she has had multiple surgeries, it would be best if we try to avoid surgery and treat her conservatively. However, if her condition worsens, she will need to go to the operating room. Once again, thank you for this consultation. Sincerely, Roger Vargas MD Roger Vargas MD cc: [id number] TT: 12/04/2016 12:13:15 Confirmation # [id number] Dictation # [id number] jn 12/04/2016 12:21:05
[2016-12-04] MEDS: Fluticasone Nasal 50 mcg/Spray NAS SCH (12:40)
[2016-12-04] MEDS ORDERED: Iohexol 240 (50 ml) PO ONE ×2 (12:50→16:45)
--- NOTE | 2016-12-04 13:02 | PN ---
DATE: 12/04/2016 The patient is resting comfortably today heading to radiology for a CAT scan. No complaints. VITAL SIGNS: Temperature 97. Vital signs are stable. ABDOMEN: Soft, less tenderness. White blood cell count decreased to 6.0. The patient is improving with an NG tube. We will get a CT scan today to monitor her small-bowel obs truction and make further recommendations. Roger Vargas MD cc: [id number] TT: 12/04/2016 12:32:14 Confirmation # [id number] Dictation # [id number] 12/04/2016 12:01:46
--- NOTE | 2016-12-04 13:26 | PN ---
DATE: 12/03/2016 The patient is seen today resting comfortably in bed. She has a NG tube in place which has drained 6 00 mL of greenish fluid. Her temperature is 98.4. Vital signs are stable. White blood cell count n oted to be down to 9.0 today. PHYSICAL EXAMINATION: ABDOMEN: Soft, somewhat less tenderness in the upper quadrants. My impression is she has improved with the NG tube with less tenderness and the white count decreasin g. We will continue IV hydration, NG tube drainage, and tomorrow we will get a CAT scan to see if th ere is radiologic improvement. Roger Vargas MD cc: [id number] TT: 12/04/2016 13:25:21 Confirmation # [id number] Dictation # [id number] sn
--- NOTE | 2016-12-04 13:26 | PN ---
DATE: 12/04/2016 The patient is resting comfortably today, heading to radiology for a CAT scan. No complaints. [place] rature 97, vital signs are stable. PHYSICAL EXAMINATION: ABDOMEN: Soft, less tenderness. White blood cell count decreased to 6.0. The patient is improving with NG tube. We will get a CT scan today to evaluate her small-bowel obstr uction and make further recommendations. Roger Vargas MD cc: [id number] TT: 12/04/2016 13:26:24 Confirmation # [id number] Dictation # [id number] sn
--- NOTE | 2016-12-04 17:28 | RAD ---
PROCEDURE: Single contrast upper GI series HISTORY: Nausea and vomiting. COMPARISON: Comparison made with CT scan abdomen and pelvis dated 12/02/2016 TECHNIQUE: Following school psychologist assistant film of the abdomen, single contrast upper GI series performed in standard fashion. . Multiple digital fluoroscopic spot films and overhead radiographs performed. Note that the patient was able to drink only small amounts of oral contrast material on due to vomiting. The study is therefore slightly limited. FINDINGS: Aircraft Engine Technician film demonstrates in situ NGT. Metallic clips seen in the right abdomen. Few minimally distended air-filled loops of small bowel felt to be present. In situ NGT which may have affected peristalsis. The esophagus exhibited slightly transient irregular contours. No persistent intraluminal intraluminal or extrinsic filling defects. No definitive mucosal abnormality identified. The stomach exhibited normal distensibility within the limitation of a amount of contrast taken. Stomach also exhibited normal contour. Slightly prominent rugal fold pattern which may in part be due to incomplete distention however the possibility of underlying gastritis must be considered. No persistent intraluminal or extrinsic filling defects. No obvious gastric ulcerations. . The visualized duodenal bulb exhibited normal distensibility appears unremarkable without intraluminal filling defects or ulceration. Oral contrast material passed into the proximal small bowel without obstruction. Consider plain film radiograph of the abdomen to assess passage of oral contrast material. IMPRESSION: Limited study as detailed above in the technique portion of this report. . Slight atretic irregularity of the esophagus likely due to the presence of an in situ NGT. There are also slightly prominent appearing rugal folds which may in part be due to incomplete distention however possibility of underlying gastritis must be considered. Recommend plain film radiographs of the abdomen to assess passage of contrast material from small to large bowel.
[2016-12-04] MEDS: Latanoprost 2.5 ml Opht Soln OU SCH (22:13)
[2016-12-05] MEDS: DiphenhydrAMINE 50 mg/ml Inj IVP PRN ×2 (02:36→16:43)
[2016-12-05] MEDS: Potassium Chl 40 mEq in D5-1/2 1,000 ML IV SCH ×4 (02:51→21:29)
[2016-12-05] MEDS: Piperacillin/Tazobact 3.375 GM in Sodium Chloride 0.9% 100 ML IVPB SCH ×3 (05:13→21:30)
[2016-12-05] MEDS: Fluticasone-Salmeterol 250-50mcg Diskus IH SCH ×2 (07:33→19:17)
[2016-12-05] MEDS: Sucralfate 1 gm/10 ml Oral Susp UD PO SCH ×3 (07:58→16:40)
--- NOTE | 2016-12-05 08:22 | CT ---
PROCEDURE: CT Abdomen and Pelvis with contrast HISTORY: SBO Surveilance COMPARISON: Comparison is made to the previous study dated 12/02/2016 TECHNIQUE: Axial and reformatted coronal and sagittal CT images of the abdomen and pelvis were obtained Contrast dose: 0 Radiation dose: Total exam DLP = 949.9 mGy-cm. This CT exam was performed using one or more of the following dose reduction techniques: Automated exposure control, adjustment of the mA and/or kV according to patient size, and/or use of iterative reconstruction technique. FINDINGS: LOWER THORAX: Small opacities at the lung bases. LIVER: Unremarkable. No gross lesion or ductal dilatation. GALLBLADDER AND BILE DUCTS: Patient status post cholecystectomy PANCREAS: Unremarkable. No gross lesion or ductal dilatation. SPLEEN: Unremarkable. ADRENALS: Unremarkable. No mass. KIDNEYS AND URETERS: There is a cystic lesion at the mid to lower pole left kidney. No evidence of hydronephrosis VASCULATURE: Unremarkable. No aortic aneurysm. BOWEL: Concentrated oral contrast in the stomach and bowel associated with streak artifact. No evidence of high-grade bowel obstruction. The oral contrast seen in the rectum and distal large bowel. APPENDIX: No evidence of appendicitis. PERITONEUM: Unremarkable. No free fluid. No free air. LYMPH NODES: Unremarkable. No enlarged lymph nodes. BLADDER: Unremarkable. REPRODUCTIVE: Unremarkable. BONES: No acute fracture. OTHER FINDINGS: IVC filter seen in place. NG tube seen extending to the stomach. IMPRESSION: No evidence of bowel obstruction. The assessment of the bowel is somewhat limited due to large streak artifact from concentrated oral contrast in the mid and lower abdomen. No evidence of significant interval change compared to the previous exam. Small opacities at the lung bases may represent atelectasis or pneumonia. Preliminary report was submitted by [facility] P
[2016-12-05 09:32] LABS: CHLORIDE 103 mmol/L (98-107)
[2016-12-05 09:33] LABS: POTASSIUM 3.6 mmol/L (3.6-5.2); SODIUM 143 mmol/L (132-148)
[2016-12-05 09:35] LABS: ALKALINE PHOSPHATASE 122 U/L (38-126); AST/SGOT 26 U/L (14-36); BILIRUBIN,TOTAL 0.5 mg/dL (0.2-1.3); BLOOD UREA NITROGEN 3 mg/dL (7-17); CARBON DIOXIDE 25 mmol/L (22-30); GFR AFRICAN-AMERICAN > 60; TOTAL PROTEIN 7.1 g/dL (6.3-8.3)
[2016-12-05 09:36] LABS: ALT/SGPT 22 U/L (9-52); CALCIUM 8.1 mg/dl (8.6-10.4); GLUCOSE,RANDOM 110 mg/dL (65-105); MAGNESIUM 1.9 mg/dL (1.6-2.3); PHOSPHOROUS 3.8 mg/dL (2.5-4.5)
[2016-12-05] MEDS: Multiple Vitamins Tab PO SCH (09:57)
[2016-12-05] MEDS: LIPASE/PROTEASE/AMYLASE 4,200 U ECC PO SCH ×3 (09:58→17:52)
[2016-12-05] MEDS ORDERED: Pneumococcal 23-Valent Vaccine IM ONE (10:00)
[2016-12-05] MEDS: Dorzolamide 2% Opht Sol 10ml OU SCH ×3 (10:13→17:53)
[2016-12-05] MEDS: Fluticasone Nasal 50 mcg/Spray NAS SCH ×2 (10:14→21:57)
--- NOTE | 2016-12-05 10:43 | CP.PCM.PN ---
Subjective - Date & Time of Evaluation Date of Evaluation: 12/05/16 Time of Evaluation: 09:00 - Subjective Subjective: Medicine Progress Note- Dr. Ventura's service: Patient seen and examined at bedside this AM. She complains of not sleeping well last night. Admits to nausea, but no vomiting. She also admits to 10/[address] abdominal pain. NGT in place this morning. In the afternoon Dr. Vargas ordered for NGT to be removed and for the patient to start clear liquid diet. No acute events overnight. Patient also admits to trouble urinating. She was supposed to follow up with Dr. Regan as outpatient, but pain was "so bad" that she presented to the ED. Objective - Vital Signs/Intake and Output Vital Signs (last 24 hours): Temp Pulse Resp BP Pulse Ox 98.2 F 78 20 145/91 H 93 L 12/05/16 08:38 12/05/16 08:38 12/05/16 08:38 12/05/16 08:38 12/05/16 08:38 Intake and Output: 12/05/16 12/05/16 06:59 18:59 Intake Total 850 Output Total 2200 Balance -1350 - Medications Medications: Current Medications Albuterol (Ventolin Hfa 90 Mcg/Actuation (8 G)) 0 puff INH Q6H PRN PRN Reason: Shortness of Breath Alprazolam (Xanax) 1 mg PO TID [facility] Last Admin: 12/05/16 09:58 Dose: Not Given Atenolol (Tenormin) 100 mg PO DAILY [facility] Last Admin: 12/05/16 09:58 Dose: Not Given Baclofen (Lioresal) 10 mg PO QID [facility] Last Admin: 12/05/16 09:57 Dose: Not Given Diphenhydramine HCl (Benadryl) 25 mg IVP Q8H PRN PRN Reason: Itching / Pruritus Last Admin: 12/05/16 02:36 Dose: 25 mg Dorzolamide HCl (Trusopt) 0 ml OU TID [facility] Last Admin: 12/05/16 10:13 Dose: 1 drop Fluticasone Propionate (Flonase) 1 spr АНДРЕЙ DAILY [facility] Last Admin: 12/05/16 10:14 Dose: Not Given Hydromorphone HCl (Dilaudid) 1 mg IVP Q4H PRN PRN Reason: Pain, severe (8-10) Last Admin: 12/04/16 21:37 Dose: 1 mg Levetiracetam 750 mg/ Sodium (Chloride) 107.5 mls @ 420 mls/hr IVPB Q12H [facility] Last Admin: 12/05/16 05:13 Dose: 420 mls/hr Piperacillin Sod/Tazobactam (Sod 3.375 gm/ Sodium Chloride) 100 mls @ 100 mls/ hr IVPB Q8H [facility] Last Admin: 12/05/16 05:13 Dose: 100 mls/hr Potassium Chloride/Dextrose/Sod Cl (Potassium Chl 40 Meq In D5-1/2ns) 1,000 mls @ 125 mls/hr IV .Q8H [facility] Last Admin: 12/05/16 03:40 Dose: 125 mls/hr Latanoprost (Xalatan Opht) 0 ml OU HS [facility] Last Admin: 12/04/16 22:13 Dose: 2.5 ml Multivitamins (Hexavitamin) 1 tab PO DAILY [facility] Last Admin: 12/05/16 09:57 Dose: Not Given Ondansetron HCl (Zofran Inj) 4 mg IVP Q6H PRN PRN Reason: Nausea/Vomiting Last Admin: 12/04/16 16:51 Dose: 4 mg Pantoprazole Sodium (Protonix Inj) 40 mg IVP DAILY [facility] Last Admin: 12/05/16 10:12 Dose: 40 mg Fluticasone/Salmeterol (Advair Diskus 250/50) 1 puff IH RQ12 [facility] Last Admin: 12/05/16 07:33 Dose: 1 puff Sertraline HCl (Zoloft) 100 mg PO BID [facility] Last Admin: 12/05/16 09:59 Dose: Not Given Sucralfate (Carafate Oral Susp) 1 gm PO ACTID [facility] Last Admin: 12/05/16 07:58 Dose: Not Given Zolpidem Tartrate (Ambien) 5 mg PO HS [facility] Last Admin: 12/04/16 22:06 Dose: Not Given - Labs Labs: 12/04/16 06:30 12/05/16 08:48 PT 11.1 SECONDS (9.7-12.2) 12/02/16 01:17 INR 1.0 12/02/16 01:17 APTT 26 SECONDS (21-34) 12/02/16 01:17 - Constitutional Appears: No Acute Distress - Head Exam Head Exam: NORMAL INSPECTION, NORMOCEPHALIC - Eye Exam Eye Exam: EOMI, Normal appearance - ENT Exam Additional comments: +NGT in place - Neck Exam Neck Exam: Full ROM, Normal Inspection - Respiratory Exam Respiratory Exam: Clear to Ausculation Bilateral, NORMAL BREATHING PATTERN - Cardiovascular Exam Cardiovascular Exam: REGULAR RHYTHM, +S1, +S2 - GI/Abdominal Exam GI & Abdominal Exam: Soft, Tenderness - Extremities Exam Extremities Exam: Full ROM, Normal Inspection - Neurological Exam Neurological Exam: Alert, Awake, Oriented x3 - Psychiatric Exam Psychiatric exam: Normal Affect, Normal Mood - Skin Skin Exam: Normal Color, Warm Assessment and Plan - Assessment and Plan (Free Text) Assessment: (1) Partial small bowel obstruction Assessment & Plan: Consult GI- Dr. Pena EGD done 12/03/16 showed medium sized hiatal hernia, acute gastritis, and erythematous duodenopathy. As per GI, continue current medications and start CLD. f/u path results Consult Surgery- Dr. Vargas NGT D/C today and CLD started as per Dr. Vargas Zosyn IVPB- DAY 4 Dilaudid 1mg IVP Q4h PRN Baclofen PO QID Zofran 4mg IVP Q6h PRN f/u stool occult Abdomen/Pelvis CT w IV contrast- s/p prior SB surgery. Findings consistent with partial small bowel obstruction. 17mm indeterminate lesion arising from upper pole of right kidney. Status: Acute (2) Anemia Assessment & Plan: Hgb 10.3, Hct 32.8, MCV 79. (H/H on admission 11.9/37.3) Patient with microcytic anemia. f/u Iron studies f/u stool OB Consult GI- Dr. Pena EGD done 12/03/16 showed medium sized hiatal hernia, acute gastritis, and erythematous duodenopathy. As per GI, likely anemia of chronic disease. Status: Acute (3) Urinary retention Assessment & Plan: Queen in place Uro consult placed- Dr. Regan- help appreciated. Status: Acute (4) Asthma Assessment & Plan: Continue Advair 25/50mcg 1 puff IH Q12h Continue Albuterol 2 puff INH Q6h PRN Status: Acute (5) Anxiety Assessment & Plan: Xanax 1mg PO TID Status: Acute (6) Major depression Assessment & Plan: Continue Zoloft 100mg PO BID Status: Chronic (7) Seizure disorder Assessment & Plan: Vimpat 200mg PO BID is unavailable. Consult Neuro- Dr. Contreras Keppra 750mg IVPB Q12h As per Dr. Araiza, if any seizures occur, increase dose to 1000 mg IVPB Q12H Status: Chronic (8) Chronic pancreatitis Assessment & Plan: Zenpep 25,000 PO TID Status: Acute (9) Hypokalemia Assessment & Plan: K+- 2.8 Yesterday. 3.6 this AM Continue D5 1/2 NS w KCL 40meq @ 125cc/hr Continue to monitor (10) Insomnia Assessment & Plan: Ambien 10mg PO HS Status: Chronic (11) HTN (hypertension) Assessment & Plan: Atenolol 100mg PO Daily Status: Acute (12) Prophylactic measure Assessment & Plan: Protonix 40mg IVP Daily SCDs Status: Acute All management as per Dr. Ventura.
[2016-12-05] MEDS: HYDROmorphone 1 mg/ml ISec IVP PRN ×2 (11:44→16:40)
--- NOTE | 2016-12-05 13:22 | CP.PCM.CON ---
Past Patient History - Infectious Disease Hx of Infectious Diseases: None - Past Medical History & Family History Past Medical History?: Yes - Past Social History Smoking Status: Never Smoked - CARDIAC Hx Hypercholesterolemia: Yes Hx Hypertension: Yes - PULMONARY Hx Asthma: Yes Hx Chronic Obstructive Pulmonary Disease (COPD): Yes (ASTHMA) - NEUROLOGICAL Hx Seizures: Yes - HEENT Hx HEENT Problems: Yes Hx Glaucoma: Yes - RENAL Hx Kidney Stones: Yes - ENDOCRINE/METABOLIC Hx Endocrine Disorders: Yes Hx Systemic Lupus Erythematosus: Yes - HEMATOLOGICAL/ONCOLOGICAL Hx Blood Disorders: Yes Hx Blood Transfusions: Yes Hx Blood Transfusion Reaction: No Hx Cancer: Yes (ovarian) Hx Chemotherapy: Yes - INTEGUMENTARY Hx Dermatological Problems: Yes Hx Melanoma: Yes Hx Psoriasis: Yes - MUSCULOSKELETAL/RHEUMATOLOGICAL Hx Falls: No - GASTROINTESTINAL Hx Diverticulitis: Yes Hx Gall Bladder Disease: Yes Hx Gastritis: Yes Hx Pancreatitis: Yes - GENITOURINARY/GYNECOLOGICAL Hx Genitourinary Disorders: Yes Hx Hematuria: Yes Hx Urinary Tract Infection: Yes Other/Comment: hx cystitis - PSYCHIATRIC Hx Substance Use: No - SURGICAL HISTORY Hx Appendectomy: Yes Hx Cholecystectomy: Yes - ANESTHESIA Hx Anesthesia: Yes Hx Anesthesia Reactions: No Hx Malignant Hyperthermia: No Meds Allergies/Adverse Reactions: Allergies Allergy/AdvReac Type Severity Reaction Status Date / Time acetaminophen [From Tylenol] Allergy Verified 12/02/16 00:11 codeine Allergy Verified 12/02/16 00:11 ketorolac tromethamine Allergy Verified 12/02/16 01:29 [From Toradol] oxycodone HCl [From Percocet] Allergy Verified 12/02/16 00:11 paroxetine HCl [From Paxil] Allergy Verified 12/02/16 00:11 propoxyphene napsylate Allergy Verified 12/02/16 00:11 [From Darvocet-N] - Medications Medications: Current Medications Albuterol (Ventolin Hfa 90 Mcg/Actuation (8 G)) 0 puff INH Q6H PRN PRN Reason: Shortness of Breath Alprazolam (Xanax) 1 mg PO TID [facility] Last Admin: 12/05/16 13:03 Dose: Not Given Atenolol (Tenormin) 100 mg PO DAILY [facility] Last Admin: 12/05/16 09:58 Dose: Not Given Baclofen (Lioresal) 10 mg PO QID [facility] Last Admin: 12/05/16 13:03 Dose: Not Given Diphenhydramine HCl (Benadryl) 25 mg IVP Q8H PRN PRN Reason: Itching / Pruritus Last Admin: 12/05/16 02:36 Dose: 25 mg Dorzolamide HCl (Trusopt) 0 ml OU TID [facility] Last Admin: 12/05/16 10:13 Dose: 1 drop Fluticasone Propionate (Flonase) 1 spr АНДРЕЙ DAILY [facility] Last Admin: 12/05/16 10:14 Dose: Not Given Hydromorphone HCl (Dilaudid) 1 mg IVP Q4H PRN PRN Reason: Pain, severe (8-10) Last Admin: 12/05/16 11:44 Dose: 1 mg Levetiracetam 750 mg/ Sodium (Chloride) 107.5 mls @ 420 mls/hr IVPB Q12H [facility] Last Admin: 12/05/16 05:13 Dose: 420 mls/hr Piperacillin Sod/Tazobactam (Sod 3.375 gm/ Sodium Chloride) 100 mls @ 100 mls/ hr IVPB Q8H [facility] Last Admin: 12/05/16 05:13 Dose: 100 mls/hr Potassium Chloride/Dextrose/Sod Cl (Potassium Chl 40 Meq In D5-1/2ns) 1,000 mls @ 125 mls/hr IV .Q8H [facility] Last Admin: 12/05/16 11:23 Dose: Not Given Latanoprost (Xalatan Opht) 0 ml OU HS [facility] Last Admin: 12/04/16 22:13 Dose: 2.5 ml Multivitamins (Hexavitamin) 1 tab PO DAILY [facility] Last Admin: 12/05/16 09:57 Dose: Not Given Ondansetron HCl (Zofran Inj) 4 mg IVP Q6H PRN PRN Reason: Nausea/Vomiting Last Admin: 12/05/16 11:44 Dose: 4 mg Pantoprazole Sodium (Protonix Inj) 40 mg IVP DAILY [facility] Last Admin: 12/05/16 10:12 Dose: 40 mg Fluticasone/Salmeterol (Advair Diskus 250/50) 1 puff IH RQ12 [facility] Last Admin: 12/05/16 07:33 Dose: 1 puff Sertraline HCl (Zoloft) 100 mg PO BID [facility] Last Admin: 12/05/16 09:59 Dose: Not Given Sucralfate (Carafate Oral Susp) 1 gm PO ACTID [facility] Last Admin: 12/05/16 11:23 Dose: Not Given Zolpidem Tartrate (Ambien) 5 mg PO HS [facility] Last Admin: 12/04/16 22:06 Dose: Not Given Results - Vital Signs Recent Vital Signs: Last Vital Signs Temp 98.2 F 12/05/16 08:38 Pulse 78 12/05/16 08:38 Resp 20 12/05/16 08:38 BP 145/91 H 12/05/16 08:38 Pulse Ox 93 L 12/05/16 08:38 - Labs Result Diagrams: 12/04/16 06:30 12/05/16 08:48 Labs: Laboratory Results - last 24 hr 12/05/16 08:48 Sodium 143 Potassium 3.6 Chloride 103 Carbon Dioxide 25 Anion Gap 18 BUN 3 L Creatinine 0.7 Est GFR ( Amer) > 60 Est GFR (Non-Af Amer) > 60 Random Glucose 110 H Calcium 8.1 L Phosphorus 3.8 Magnesium 1.9 Total Bilirubin 0.5 AST 26 ALT 22 Alkaline Phosphatase 122 Total Protein 7.1 Albumin 3.6 Globulin 3.5 Albumin/Globulin Ratio 1.0 Assessment & Plan - Assessment and Plan (Free Text) Assessment: IMP: URINSARY RETNETION HX OF UTI BOWEL OBSTRUCTION SLE SEIZURE DISORDER ASTHMA - Date & Time Date: 12/05/16 Time: 13:22
--- NOTE | 2016-12-05 13:43 | PN ---
DATE: 12/05/2016 LOCATION: 571, bed A. This is a 56-year-old female, seen and examined in rounds, still on NG tube without reported signific ant clinical changes, with stable vital signs. The patient had abdominal and pelvic CAT scan done yesterday, repeated, which showed no evidence of s ignificant changes with possible pneumonia and no evidence of bowel obstruction. The entire chart is reviewed, including but not limited to, the most recent lab and radiology study results, current and previous medication lists, current and previous medical events. Case discussed at length with the s vincent on the floor. Most recent lab results showed low hemoglobin and hematocrit with low indices, highly suggestive of h ypochromic microcytic anemia with today's labs showing low BUN of 3 with low calcium 8.1. PHYSICAL EXAMINATION: GENERAL: A 56-year-old female, appeared to be awake, alert. VITAL SIGNS: Afebrile with blood pressure of 140/86. HEENT: Showed pale, dry oral mucoid membrane. Nonicteric sclerae. LUNGS: Few scattered crepitation, decreased air entry at bases. HEART: Positive S1 and S2. ABDOMEN: Soft with mild distention. No mass or organomegaly. No rebound tenderness or guarding. RECTAL: The patient refused. EXTREMITIES: Without edema, clubbing or cyanosis. NEUROLOGIC: No reported new neurological deficits, sensory or motor. IMPRESSION: 1. Reexacerbation of peptic ulcer disease. 2. Anemia, most likely secondary to chronic disease. 3. Intermittent partial bowel obstruction, secondary to most likely adhesions, patient is improving clinically. 4. Known history of severe anxiety syndrome, depression, bronchial asthma and osteoarthritis. 5. Known history of diverticulosis with diverticulitis. 6. Hyperlipidemia with hypertension by history. 7. Known history of status post cholecystectomy and appendectomy. SUGGESTION: 1. Continue current management. 2. Start clear liquid diet, and that to be discussed with the surgical elastic knitter on the case. 3. Follow up on cancer markers. Flo Pena MD cc: 14 TT: 12/05/2016 13:42:26 Confirmation # [id number] Dictation # [id number] en
[2016-12-06] MEDS: Potassium Chl 40 mEq in D5-1/2 1,000 ML IV SCH ×3 (00:42→11:00)
[2016-12-06] MEDS: DiphenhydrAMINE 50 mg/ml Inj IVP PRN ×2 (01:06→09:26)
[2016-12-06] MEDS: HYDROmorphone 1 mg/ml ISec IVP PRN ×4 (01:07→19:08)
[2016-12-06 01:19] LABS: RBC URINE 15 /hpf (0-3); URINE BILIRUBIN NEGATIVE (NEGATIVE); URINE BLOOD 2+ (NEGATIVE); URINE COLOR Straw (YELLOW); URINE GLUCOSE (UA) NORMAL (Normal); URINE KETONE NEGATIVE (NEGATIVE); URINE LEUKOCYTE ESTERASE NEG Leu/uL (Negative); URINE PROTEIN NEGATIVE (NEGATIVE); URINE UROBILINOGEN NORMAL mg/dL (0.2-1.0); WBC URINE 2 /hpf (0-5)
[2016-12-06] MEDS: Latanoprost 2.5 ml Opht Soln OU SCH ×2 (01:19→21:33)
[2016-12-06] MEDS: Piperacillin/Tazobact 3.375 GM in Sodium Chloride 0.9% 100 ML IVPB SCH ×3 (06:35→21:33)
[2016-12-06 07:24] LABS: BASO % 0.2 % (0.0-2.0); EOS # 0.2 K/uL (0.0-0.7); EOS % 2.5 % (0.0-4.0); HEMATOCRIT 33.1 % (34.0-47.0); LYMPH # 1.6 K/uL (1.0-4.3); LYMPH % 21.4 % (20.0-40.0); MEAN CELL VOLUME 79.4 fL (81.0-99.0); MEAN CORPUSCULAR HGB CONC 31.5 g/dL (33.0-37.0); MEAN PLATELET VOLUME 8.4 fL (7.2-11.7); MONO # 0.5 K/uL (0.0-0.8); MONO % 7.2 % (0.0-10.0); RED CELL DISTRIBUTION WIDTH 16.4 % (11.5-14.5); WHITE BLOOD COUNT 7.5 K/uL (4.8-10.8)
[2016-12-06] MEDS: Sucralfate 1 gm/10 ml Oral Susp UD PO SCH ×3 (07:30→17:46)
[2016-12-06 07:34] LABS: CHLORIDE 103 mmol/L (98-107)
[2016-12-06 07:35] LABS: POTASSIUM 3.3 mmol/L (3.6-5.2); SODIUM 143 mmol/L (132-148)
[2016-12-06 07:36] LABS: IRON 37 ug/dL (37-170)
[2016-12-06 07:37] LABS: ALB/GLOB RATIO 1.1 (1.0-2.1); ALKALINE PHOSPHATASE 105 U/L (38-126); ALT/SGPT 21 U/L (9-52); AST/SGOT 17 U/L (14-36); BILIRUBIN,TOTAL 0.3 mg/dL (0.2-1.3); CARBON DIOXIDE 29 mmol/L (22-30); GFR AFRICAN-AMERICAN > 60; GLUCOSE,RANDOM 100 mg/dL (65-105); PHOSPHOROUS 3.5 mg/dL (2.5-4.5); TOTAL PROTEIN 6.8 g/dL (6.3-8.3)
[2016-12-06 07:38] LABS: BLOOD UREA NITROGEN 2 mg/dL (7-17); MAGNESIUM 1.8 mg/dL (1.6-2.3)
[2016-12-06] MEDS: Fluticasone-Salmeterol 250-50mcg Diskus IH SCH ×2 (07:41→19:23)
[2016-12-06] MEDS: Fluticasone Nasal 50 mcg/Spray NAS SCH (09:34)
[2016-12-06] MEDS: Multiple Vitamins Tab PO SCH (09:40)
[2016-12-06] MEDS: LIPASE/PROTEASE/AMYLASE 4,200 U ECC PO SCH ×3 (09:41→19:01)
[2016-12-06] MEDS: Dorzolamide 2% Opht Sol 10ml OU SCH ×3 (10:00→19:00)
--- NOTE | 2016-12-06 11:49 | PN ---
DATE: 12/06/2016 LOCATION 352, bed B. SUBJECTIVE: This is a 56-year-old female seen and examined in rounds with removed NG tube yesterday, tolerating oral intake of clear liquid diet adequately. The patient also seen by urologic windows consultant, Dr. Regan. No reported active bleeding, passing gas as well as small amount of bowel movement. The entire chart is reviewed, including but not limited to the most recent lab and radiology study re sults, current and previous medication list, current and the previous medical events, case discussed at length with the staff on the floor. LABORATORY DATA: Today's labs showed low hemoglobin of 10.4 with low hematocrit 33.1 with low indice s highly suggestive of hypochromic microcytic anemia with low potassium 3.3, low BUN to 2, but normal creatinine with low calcium of 8.0. Most recent CAT scan of the abdomen and the pelvis reports are seen. It has to be mentioned that the patient still has a complaint of intermittent period of urinary reten tion. PHYSICAL EXAMINATION: GENERAL: A 56-year-old female, appears to be awake, alert, oriented. VITAL SIGNS: Afebrile with a pulse of 82, respiratory rate 20-22, blood pressure of 136/82. HEENT: Showed pale, dry oral mucoid membrane. Nonicteric sclerae. LUNGS: Few scattered crepitation, decreased air entry at bases. HEART: Positive S1 and S2. ABDOMEN: Soft, mildly distended with generalized tenderness. Bowel sounds are hypoactive. No mass or organomegaly. No rebound tenderness or guarding. RECTAL: The patient refused. EXTREMITIES: Without significant clubbing, cyanosis or edema. NEUROLOGIC: No reported new neurological deficits, sensory or motor. IMPRESSION: 1. Reexacerbation of peptic ulcer disease. 2. Anemia, most likely secondary to above and/or chronic disease. 3. Intermittent partial bowel obstruction resolved. 4. Known history of severe anxiety syndrome, depression. 5. History of osteoarthritis as well as bronchial asthma. 6. Diverticulosis with periods of diverticulitis by history. 7. Hypertension, hyperlipidemia by history. 8. Status post cholecystectomy and appendectomy by history. SUGGESTION: 1. Continue current management. 2. Reglan IV. 3. Carafate p.o. 4. Reglan p.o. 5. Antireflux measures. 6. Further recommendation to follow. Flo Pena MD cc: 14 TT: 12/06/2016 11:48:06 Confirmation # [id number] Dictation # [id number] jn
--- NOTE | 2016-12-06 14:36 | PN ---
DATE: 12/06/2016 The patient is found resting in bed. She still complains of abdominal pain, although slightly decrea sed from yesterday, but still present, which is somewhat worrisome. She has been taking a clear liqu id diet and had a bowel movement this morning. PHYSICAL EXAMINATION: VITAL SIGNS: Her temperature is 97.5, her pulse rate is 85, BP is 139/83, O2 saturation is 96 on emily m air. Examination is basically unchanged. ABDOMEN: Soft, however, there is upper quadrant tenderness which causes her to wince. LABORATORY DATA: Her white count is stable at 7.5. The remainder of her labs are unremarkable excep t for a slightly low potassium of 3.3 for which she is getting potassium as we speak. IMPRESSION: She has a partial small bowel obstruction which appears to be resolving slowly. She is clearly improved since admission, but I would not advance her diet past the clear liquids until her p ain has resolved to a lower point. We will continue to follow on a daily basis. Roger Vargas MD cc: [id number] TT: 12/06/2016 14:35:26 Confirmation # [id number] Dictation # [id number] tn
[2016-12-07] MEDS: HYDROmorphone 1 mg/ml ISec IVP PRN ×4 (05:24→20:05)
[2016-12-07] MEDS: DiphenhydrAMINE 50 mg/ml Inj IVP PRN ×2 (05:28→13:33)
[2016-12-07] MEDS: Piperacillin/Tazobact 3.375 GM in Sodium Chloride 0.9% 100 ML IVPB SCH ×4 (06:03→21:57)
[2016-12-07 07:10] LABS: BASO % 0.5 % (0.0-2.0); EOS # 0.2 K/uL (0.0-0.7); EOS % 2.3 % (0.0-4.0); MEAN CORPUSCULAR HEMOGLOBIN 25.1 pg (27.0-31.0); MONO # 0.4 K/uL (0.0-0.8); NRBC % 0.1 % (0.0-2.0)
[2016-12-07 07:23] LABS: HEMATOCRIT 34.3 % (34.0-47.0); LYMPH # 1.5 K/uL (1.0-4.3); LYMPH % 17.7 % (20.0-40.0); MEAN CELL VOLUME 78.9 fL (81.0-99.0); MEAN CORPUSCULAR HGB CONC 31.8 g/dL (33.0-37.0); MEAN PLATELET VOLUME 8.5 fL (7.2-11.7); MONO % 4.8 % (0.0-10.0); RED CELL DISTRIBUTION WIDTH 16.6 % (11.5-14.5); WHITE BLOOD COUNT 8.3 K/uL (4.8-10.8)
[2016-12-07 07:30] LABS: CHLORIDE 105 mmol/L (98-107); POTASSIUM 3.6 mmol/L (3.6-5.2); SODIUM 143 mmol/L (132-148)
[2016-12-07] MEDS: Sucralfate 1 gm/10 ml Oral Susp UD PO SCH ×3 (07:30→16:30)
[2016-12-07 07:32] LABS: AST/SGOT 32 U/L (14-36); BILIRUBIN,TOTAL 0.3 mg/dL (0.2-1.3); CARBON DIOXIDE 27 mmol/L (22-30); GFR AFRICAN-AMERICAN > 60
[2016-12-07 07:33] LABS: ALKALINE PHOSPHATASE 140 U/L (38-126); ALT/SGPT 23 U/L (9-52); BLOOD UREA NITROGEN 3 mg/dL (7-17); GLUCOSE,RANDOM 90 mg/dL (65-105); MAGNESIUM 1.8 mg/dL (1.6-2.3); PHOSPHOROUS 3.8 mg/dL (2.5-4.5)
[2016-12-07] MEDS: Fluticasone-Salmeterol 250-50mcg Diskus IH SCH ×2 (07:50→20:28)
--- NOTE | 2016-12-07 09:40 | CON ---
DATE: 12/02/[address] Flo Pena to Dr. Felisa Asif. I was called for GI consultation by the admitting MD. The patient is seen and fully examined on 12/02 for GI consultation as requested by the admitting medical staff. The entire chart is reviewed, including but not limited to, the most recent lab and radiology study r esults, current and previous medication lists, current and previous medical events, allergies to medi cations list, as well as all the available current and previous medical records. Case discussed at [facility] with the staff on the floor. This is a 56-year-old female, very well-known case for me from previous admissions, was [facility] through [facility] Emergency Room with a main complaint of severe crampy abdominal pain associat ed with persistent nausea, dyspepsia, and recurrent episodes of vomiting, unable to have any oral int jag recently. Despite so, patient denied any chills or fever, no chest pain, palpitation, no main complaint of sign ificant shortness of breath recently. No reported active bleeding. Her abdominal pain reported to b e diffuse, somewhat radiating to the back at times. The patient also reported change of bowel moveme nt habit recently. After being admitted to the hospital, patient was found to have leukocytosis of 17.5 with increased b lood glucose level to 130 with low potassium 3.2. PAST MEDICAL HISTORY: Including, but not limited to: 1. Peptic ulcer disease. 2. COPD. 3. Coronary artery disease. 4. Diverticulosis with recurrent episodes of diverticulitis. 5. Severe anxiety syndrome with depression. 6. Known history of hyperlipidemia, hypertension, renal stones as well as reported seizure disorder. 7. Status post cholecystectomy, appendectomy. It has to be mentioned that the patient had an upper endoscopy over 3-4 years ago. PHYSICAL EXAMINATION: GENERAL: A 56-year-old female, complaining of severe crampy abdominal pain, awake, alert, oriented. VITAL SIGNS: Afebrile with pulse of 86, respiratory rate 20-22 with blood pressure of 140/84. HEENT: Showed pale, dry oral mucoid membrane. Nonicteric sclerae. LUNGS: Few scattered crepitation. Decreased air entry at bases. LYMPH NODES: No lymphadenitis or lymphadenopathy. HEART: Positive S1 and S2. ABDOMEN: Mildly obese with generalized tenderness and mild to moderate distention. Bowel sounds are hypoactive. No mass or organomegaly. No rebound tenderness or guarding. It has to be mentioned th at the patient has an NG tube in place due to reported abnormal CAT scan of the abdomen with question able possible partial bowel obstruction. EXTREMITIES: Without edema, clubbing or cyanosis. NEUROLOGIC: No reported new neurological deficit, sensory or motor. ASSESSMENT: 1. Reexacerbation of peptic ulcer disease. 2. Intermittent partial bowel obstruction, believed to be secondary to adhesions from previous surge ry. 3. To rule out gastric versus duodenal ulcer inducing recurrent nausea and vomiting with dyspepsia. 4. Multiple past medical history including, but not limited to, hypertension, chronic obstructive pu lmonary disease, severe anxiety syndrome, hyperlipidemia as well as status post cholecystectomy, appe ndectomy. 5. Abnormal CAT scan of the abdomen and the pelvis as reported. 6. Known history of hyperlipidemia with hypertension. SUGGESTION: 1. Agree with your plan. 2. Peripheral hyperalimentation. 3. Proton pump inhibitors IV. 4. Reglan IV. 5. Start Flagyl IV piggyback q. 8 hours. 6. Endoscopic evaluation of the gastrointestinal tract due to the patient's persistent complaint of nausea and vomiting. It has to be mentioned that the patient had reported passing gas even after admission and her last calvin wel movement was almost 24 hours prior to her admission. Further recommendations to follow. Case is to be discussed with the surgical technologist on the case. Thank you for letting me participate in your patient's case management. Flo Pena MD cc: 14 TT: 12/07/2016 09:39:15 Confirmation # [id number] Dictation # [id number] en
[2016-12-07] MEDS: Multiple Vitamins Tab PO SCH (10:00)
[2016-12-07] MEDS: Fluticasone Nasal 50 mcg/Spray NAS SCH (10:00)
[2016-12-07] MEDS: Dorzolamide 2% Opht Sol 10ml OU SCH ×4 (10:00→17:49)
[2016-12-07] MEDS: LIPASE/PROTEASE/AMYLASE 4,200 U ECC PO SCH ×4 (10:00→17:51)
--- NOTE | 2016-12-07 10:26 | PN ---
DATE: 12/07/2016 LOCATION: 352, bed B. This is a 56-year-old female seen and examined at rounds today without reported significant clinical changes, tolerating oral intake well, seen by Dr. Vargas for followup and NG tube was removed, but still intermittent periods of mild abdominal pain. The patient is passing gas and had reported bowel movement. In all, the patient is improving clinically. The entire chart is reviewed, including but not limited to the most recent lab and radiology study re sults, current and previous medication list, current and the previous medical events. Case is discus sed with the staff on the floor at length. The most recent lab results showed hemoglobin went up to 10.9, but still low with low indices highly suggestive of hypochromic macrocytic anemia with low BUN of 3 due to poor oral intake with normal blo od glucose level, but low calcium of 8.0 and increased alkaline phosphatase 140. Stool for occult blood reported to be negative. PHYSICAL EXAMINATION: GENERAL: A 56-year-old female, appears to be awake, alert, oriented. VITAL SIGNS: Afebrile with pulse of 76, respiratory rate 20-22, blood pressure 130/80. HEENT: Showed pale, dry oral mucoid membrane. Nonicteric sclerae. LUNGS: Scattered mild crepitation, decreased air entry at bases. HEART: Positive S1 and S2. ABDOMEN: Soft. Bowel sounds are present. No mass or organomegaly. No rebound tenderness or guardi ng. Mild abdominal distention is seen with hypoactive bowel sounds. RECTAL: The patient refused. EXTREMITIES: Without significant clubbing, cyanosis or edema. NEUROLOGIC: No reported new neurologic deficits, sensory or motor. IMPRESSION: 1. Reexacerbation of peptic ulcer disease. 2. Intermittent partial bowel obstruction, believed to be secondary to adhesion, resolving. 3. Hypochromic macrocytic anemia, most likely secondary to chronic disease. 4. Known history of diverticulosis with periods of diverticulitis in the past. 5. Known history of hypertension and hyperlipidemia. Seizure disorder by history. 6. Known history of osteoarthritis. 6. Bronchial asthma by history. 7. Known history of status post appendectomy and cholecystectomy. SUGGESTION: 1. Continue current management. 2. Advance oral intake. 3. Carafate liquid p.o. 4. Follow up on cancer markers. Flo Pena MD cc: 14 TT: 12/07/2016 10:25:35 Confirmation # [id number] Dictation # [id number] an
--- NOTE | 2016-12-07 14:00 | CON ---
DATE: 12/05/2016 UROLOGY CONSULTATION REQUESTED BY: Dr. Felisa Asif UROLOGY CONSULTATION FILLED BY: Dr. Maddy Regan REASON FOR CONSULTATION: Urinary retention. The patient is a 56-year-old female with urinary retention. The patient is in otherwise fair health. The patient has multiple medical problems, including system ic lupus, seizure disorder, and asthma. The patient has a history of multiple episodes of abdominal pain and abdominal distention. The patient was admitted on 12/02 with a small bowel obstruction. The patient currently has an NG tube in place. The patient also developed urinary retention. She had a Queen catheter inserted. She reports the re sidual was 1000 mL. The patient has history of episodes of hematuria in the past. She has episodes of recurrent urinary tract infection. There has been abdominal pain. There has been flank pain. The patient is feeling better at present with the Queen catheter in place. There is a possible history of urolithiasis, although patient does not recall. The patient lives alone. The patient is not working at present. The chart is reviewed. Medications and labs were reviewed as well. The patient reports that she passed flatus this morning. PHYSICAL EXAMINATION: GENERAL: The patient is well-developed, well-nourished, middle-aged female. The patient is awake an d alert. ABDOMEN: Soft. Nontender. Overweight and protuberant. Nondistended. BACK: No CVA tenderness. Urine is trung via the Queen catheter. IMPRESSION: A 56-year-old female with urinary retention. 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 Less likely is bladder outlet obstruction. Other contributing facto rs may be patient's bedrest with decreased level of activity, and possibly medication effect. RECOMMENDATIONS AND PLAN: Catheter in place. Trial of voiding to follow. Therapy for gastrointesti nal tract pathology in progress. The patient has an NG tube in place. Urine culture. Further therapy to follow according to patient's clinical course. Possible need for a cystoscopy, cy stogram and cystometrogram. Thank you for recommending the patient for urology consultation. Maddy Regan MD cc: [id number] TT: 12/07/2016 13:59:40 Confirmation # [id number] Dictation # [id number] en
[2016-12-07] MEDS: Latanoprost 2.5 ml Opht Soln OU SCH (22:04)
[2016-12-08] MEDS: HYDROmorphone 0.5 mg/0.5 ml ISec IVP PRN ×5 (00:10→18:57)
[2016-12-08] MEDS: Piperacillin/Tazobact 3.375 GM in Sodium Chloride 0.9% 100 ML IVPB SCH ×3 (06:02→21:17)
[2016-12-08] MEDS: DiphenhydrAMINE 50 mg/ml Inj IVP PRN ×2 (06:33→14:51)
[2016-12-08] MEDS: Sucralfate 1 gm/10 ml Oral Susp UD PO SCH ×3 (08:02→17:29)
[2016-12-08] MEDS: Fluticasone-Salmeterol 250-50mcg Diskus IH SCH ×2 (10:25→19:47)
[2016-12-08] MEDS: Multiple Vitamins Tab PO SCH (10:44)
[2016-12-08] MEDS: Fluticasone Nasal 50 mcg/Spray NAS SCH (10:44)
[2016-12-08] MEDS: Dorzolamide 2% Opht Sol 10ml OU SCH ×3 (10:45→17:29)
[2016-12-08] MEDS: LIPASE/PROTEASE/AMYLASE 4,200 U ECC PO SCH ×3 (10:45→19:17)
[2016-12-08 11:43] LABS: BASO % 0.4 % (0.0-2.0); EOS # 0.2 K/uL (0.0-0.7); EOS % 2.7 % (0.0-4.0); HEMATOCRIT 34.9 % (34.0-47.0); LYMPH # 1.9 K/uL (1.0-4.3); LYMPH % 22.7 % (20.0-40.0); MEAN CELL VOLUME 78.9 fL (81.0-99.0); MEAN CORPUSCULAR HEMOGLOBIN 24.7 pg (27.0-31.0); MEAN CORPUSCULAR HGB CONC 31.4 g/dL (33.0-37.0); MEAN PLATELET VOLUME 8.4 fL (7.2-11.7); MONO # 0.6 K/uL (0.0-0.8); MONO % 7.4 % (0.0-10.0); NRBC % 0.2 % (0.0-2.0); RED CELL DISTRIBUTION WIDTH 16.4 % (11.5-14.5); WHITE BLOOD COUNT 8.4 K/uL (4.8-10.8)
[2016-12-08 11:45] LABS: CHLORIDE 104 mmol/L (98-107)
[2016-12-08 11:46] LABS: POTASSIUM 3.3 mmol/L (3.6-5.2); SODIUM 140 mmol/L (132-148)
[2016-12-08 11:48] LABS: AST/SGOT 17 U/L (14-36); BILIRUBIN,TOTAL 0.3 mg/dL (0.2-1.3); CARBON DIOXIDE 28 mmol/L (22-30); GFR AFRICAN-AMERICAN > 60
[2016-12-08 11:49] LABS: ALB/GLOB RATIO 1.1 (1.0-2.1); ALKALINE PHOSPHATASE 134 U/L (38-126); ALT/SGPT 19 U/L (9-52); BLOOD UREA NITROGEN 4 mg/dL (7-17); CALCIUM 7.9 mg/dl (8.6-10.4); GLUCOSE,RANDOM 81 mg/dL (65-105); MAGNESIUM 1.9 mg/dL (1.6-2.3); PHOSPHOROUS 3.2 mg/dL (2.5-4.5); TOTAL PROTEIN 6.9 g/dL (6.3-8.3)
--- NOTE | 2016-12-08 13:43 | PN ---
DATE: 12/08/2016 LOCATION: 352, bed B. This is a 56-year-old female seen and examined in rounds without significant clinical changes or repo rted active bleeding. Somewhat tolerating oral intake well, seen by the urology law firm consultant on the ca se. The entire chart is reviewed, including but not limited to the most recent lab and radiology study re sults, current and previous medication list, current and the previous medical events, case discussed with the staff at length. PHYSICAL EXAMINATION: GENERAL: A 56-year-old female. VITAL SIGNS: Afebrile with pulse of 66, respiratory rate 20-22, blood pressure 140/82. HEENT: Showed pale, dry oral mucoid membrane. Nonicteric sclerae. LUNGS: Few scattered crepitation, decreased air entry at bases. HEART: Positive S1 and S2. ABDOMEN: Soft. Bowel sounds are present but hypoactive with mild abdominal distention and mild tend erness. No mass or organomegaly. No rebound tenderness or guarding. RECTAL: The patient refused. EXTREMITIES: Without edema, clubbing or cyanosis. NEUROLOGIC: No reported neurological deficits, sensory or motor. LABORATORY DATA: Today's lab results showed hemoglobin is still low of 10.9 with low indices highly suggestive of hypochromic microcytic anemia with low potassium 3.3, low BUN 4 and low calcium 7.9 wit h mildly elevated alkaline phosphatase 134. Stool for occult blood was reported to be negative. IMPRESSION: 1. Peptic ulcer disease. 2. Intermittent partial reported bowel obstruction versus an ileus that could be secondary to adhesi on from previous surgeries, resolved. 3. Hypochromic microcytic anemia secondary to chronic disease most likely. 4. Known history of diverticulosis with recurrent diverticulitis by history. 5. Known history of hyperlipidemia, hypertension, seizure disorder, known history of bronchial asthm a. 5. Osteoarthritis by history. 6. Status post appendectomy with cholecystectomy. SUGGESTION: 1. Continue current management. 2. Advance oral intake. 3. Antireflux measure. 4. Further recommendation to follow. Flo Pena MD cc: 14 TT: 12/08/2016 13:42:53 Confirmation # [id number] Dictation # [id number] an
--- NOTE | 2016-12-08 14:28 | PCM.URO ---
Urology Progress Note - Objective Lab Results Last 24 Hours: Laboratory Results - last 24 hr 12/08/16 11:33 WBC 8.4 RBC 4.42 Hgb 10.9 L Hct 34.9 MCV 78.9 L MCH 24.7 L MCHC 31.4 L RDW 16.4 H Plt Count 255 MPV 8.4 Neut % (Auto) 66.8 Lymph % (Auto) 22.7 Grayson % (Auto) 7.4 Eos % (Auto) 2.7 Baso % (Auto) 0.4 Neut # 5.6 Lymph # 1.9 Grayson # 0.6 Eos # 0.2 Baso # 0.0 Sodium 140 Potassium 3.3 L Chloride 104 Carbon Dioxide 28 Anion Gap 12 BUN 4 L Creatinine 0.9 Est GFR ( Amer) > 60 Est GFR (Non-Af Amer) > 60 Random Glucose 81 Calcium 7.9 L Phosphorus 3.2 Magnesium 1.9 Total Bilirubin 0.3 AST 17 ALT 19 Alkaline Phosphatase 134 H Total Protein 6.9 Albumin 3.6 Globulin 3.3 Albumin/Globulin Ratio 1.1 Intake & Output: Intake & Output 12/07/16 12/08/16 12/08/16 18:59 06:59 18:59 Intake Total 400 940 Output Total 650 1450 Balance -250 -510 Intake: Intake, IV Amount 100 400 Right Forearm 100 400 Oral 300 540 Output: Urine 650 1450 Urethral (Queen) 650 1450 Other: # Bowel Movements 1 2 Vital Signs: Vital Signs - 24 hr 12/07/16 12/07/16 12/08/16 15:00 16:28 07:46 Temperature 97.6 F 97.8 F Pulse Rate 75 73 72 Respiratory 20 20 Rate Blood Pressure 121/77 152/86 H O2 Sat by Pulse 94 L 96 Oximetry
[2016-12-08] MEDS ORDERED: Potassium Chloride 20 mEq/15 ml LIQ UD PO ONE (15:03)
--- NOTE | 2016-12-08 15:09 | CP.PCM.PN ---
Subjective - Date & Time of Evaluation Date of Evaluation: 12/08/16 Time of Evaluation: 09:20 - Subjective Subjective: PGY2 Medicine Note - Dr. Ventura's Service: Patient seen and examined at bedside this AM. Patient reports nausea and increased abdominal pain with eating food. Patient had small bowel movement yesterday. Patient has michael catheter in. Patient denies chest pain, SOB, fever, chills. Objective - Vital Signs/Intake and Output Vital Signs (last 24 hours): Temp Pulse Resp BP Pulse Ox 97.8 F 72 20 152/86 H 96 12/08/16 07:46 12/08/16 07:46 12/08/16 07:46 12/08/16 07:46 12/08/16 07:46 Intake and Output: 12/08/16 12/08/16 06:59 18:59 Intake Total 940 Output Total 1450 500 Balance -510 -500 - Medications Medications: Current Medications Albuterol (Ventolin Hfa 90 Mcg/Actuation (8 G)) 0 puff INH Q6H PRN PRN Reason: Shortness of Breath Alprazolam (Xanax) 1 mg PO TID [facility] Last Admin: 12/08/16 14:50 Dose: 1 mg Atenolol (Tenormin) 100 mg PO DAILY [facility] Last Admin: 12/08/16 10:44 Dose: 100 mg Baclofen (Lioresal) 10 mg PO QID [facility] Last Admin: 12/08/16 10:45 Dose: 10 mg Diphenhydramine HCl (Benadryl) 25 mg IVP Q8H PRN PRN Reason: Itching / Pruritus Last Admin: 12/08/16 14:51 Dose: 25 mg Dorzolamide HCl (Trusopt) 0 ml OU TID [facility] Last Admin: 12/08/16 10:45 Dose: 1 drop Fluticasone Propionate (Flonase) 1 spr АНДРЕЙ DAILY [facility] Last Admin: 12/08/16 10:44 Dose: 1 spr Hydromorphone HCl (Dilaudid) 1 mg IVP Q4H PRN PRN Reason: Pain, severe (8-10) Last Admin: 12/08/16 14:50 Dose: 1 mg Levetiracetam 750 mg/ Sodium (Chloride) 107.5 mls @ 420 mls/hr IVPB Q12H [facility] Last Admin: 12/08/16 05:22 Dose: 420 mls/hr Piperacillin Sod/Tazobactam (Sod 3.375 gm/ Sodium Chloride) 100 mls @ 100 mls/ hr IVPB Q8H [facility] Last Admin: 12/08/16 14:25 Dose: 100 mls/hr Latanoprost (Xalatan Opht) 0 ml OU HS [facility] Last Admin: 12/07/16 22:04 Dose: 2.5 ml Multivitamins (Hexavitamin) 1 tab PO DAILY [facility] Last Admin: 12/08/16 10:44 Dose: 1 tab Ondansetron HCl (Zofran Inj) 4 mg IVP Q6H PRN PRN Reason: Nausea/Vomiting Last Admin: 12/06/16 09:54 Dose: 4 mg Pantoprazole Sodium (Protonix Inj) 40 mg IVP DAILY [facility] Last Admin: 12/08/16 10:43 Dose: 40 mg Fluticasone/Salmeterol (Advair Diskus 250/50) 1 puff IH RQ12 [facility] Last Admin: 12/08/16 10:25 Dose: 1 puff Sertraline HCl (Zoloft) 100 mg PO BID [facility] Last Admin: 12/08/16 10:46 Dose: 100 mg Sucralfate (Carafate Oral Susp) 1 gm PO ACTID [facility] Last Admin: 12/08/16 12:27 Dose: 1 gm Zolpidem Tartrate (Ambien) 5 mg PO HS [facility] Last Admin: 12/07/16 21:55 Dose: 5 mg - Labs Labs: 12/08/16 11:33 12/08/16 11:33 PT 11.1 SECONDS (9.7-12.2) 12/02/16 01:17 INR 1.0 12/02/16 01:17 APTT 26 SECONDS (21-34) 12/02/16 01:17 - Constitutional Appears: Non-toxic, No Acute Distress - Head Exam Head Exam: NORMAL INSPECTION - Eye Exam Eye Exam: EOMI - ENT Exam ENT Exam: Mucous Membranes Moist - Respiratory Exam Respiratory Exam: Clear to Ausculation Bilateral, NORMAL BREATHING PATTERN. absent: Rales, Rhonchi, Wheezes - Cardiovascular Exam Cardiovascular Exam: REGULAR RHYTHM, +S1, +S2. absent: Gallop, Rubs, Murmur - GI/Abdominal Exam GI & Abdominal Exam: Distended, Tenderness, Normal Bowel Sounds - Extremities Exam Extremities Exam: Normal Capillary Refill. absent: Pedal Edema - Neurological Exam Neurological Exam: Alert, Oriented x3 - Psychiatric Exam Psychiatric exam: Normal Affect, Normal Mood - Skin Skin Exam: Normal Color, Warm Assessment and Plan - Assessment and Plan (Free Text) Assessment: (1) Partial small bowel obstruction Assessment & Plan: Consult GI- Dr. Pena EGD done 12/03/16 showed medium sized hiatal hernia, acute gastritis, and erythematous duodenopathy. As per GI, continue current medications and start CLD. pathology - negative for H. Pylroi, consistent with gastric antral mucos with reactive gastropathy Consult Surgery- Dr. Vargas 12/08/16 - still on CLD with continued abdominal pain with having liquid NGT D/C 12/05/16 and CLD started as per Dr. Vargas Zosyn IVPB- DAY 4 Dilaudid 1mg IVP Q4h PRN Baclofen PO QID Zofran 4mg IVP Q6h PRN Abdomen/Pelvis CT w IV contrast- s/p prior SB surgery. Findings consistent with partial small bowel obstruction. 17mm indeterminate lesion arising from upper pole of right kidney. Status: Acute (2) Anemia Assessment & Plan: Hgb 10.9, Hct 34.9, MCV 78.9. (H/H on admission 11.9/37.3) Patient with microcytic anemia. iron 37, TIBC 288, ferritin 14.8, %sat 12 stool OB negative Consult GI- Dr. Pena EGD done 12/03/16 showed medium sized hiatal hernia, acute gastritis, and erythematous duodenopathy. As per GI, likely anemia of chronic disease. Status: Acute (3) Urinary retention Assessment & Plan: Michael in place UA 2+blood and 15 RBC Urine culture negative Uro consult placed- Dr. Regan- help appreciated, f/u recs Status: Acute (4) Asthma Assessment & Plan: Continue Advair 25/50mcg 1 puff IH Q12h Continue Albuterol 2 puff INH Q6h PRN Status: Acute (5) Anxiety Assessment & Plan: Xanax 1mg PO TID Status: Acute (6) Major depression Assessment & Plan: Continue Zoloft 100mg PO BID Status: Chronic (7) Seizure disorder Assessment & Plan: Vimpat 200mg PO BID is unavailable. Consult Neuro- Dr. Ben Jonesra 750mg IVPB Q12h As per Dr. Araiza, if any seizures occur, increase dose to 1000 mg IVPB Q12H Status: Chronic (8) Chronic pancreatitis Assessment & Plan: Zenpep 25,000 PO TID Status: Acute (9) Hypokalemia Assessment & Plan: K+- 3.3 today. 40mEq KCl PO oral solution ordered Continue D5 1/2 NS w KCL 40meq @ 125cc/hr Continue to monitor (10) Insomnia Assessment & Plan: Ambien 10mg PO HS Status: Chronic (11) HTN (hypertension) Assessment & Plan: Atenolol 100mg PO Daily Status: Acute (12) Prophylactic measure Assessment & Plan: Protonix 40mg IVP Daily SCDs Patient does not have IV access due to poor veins PICC/mid line ordered Status: Acute All management as per Dr. Ventura.
[2016-12-08] MEDS: Latanoprost 2.5 ml Opht Soln OU SCH (21:16)
[2016-12-09] MEDS: HYDROmorphone 0.5 mg/0.5 ml ISec IVP PRN ×4 (00:05→19:22)
[2016-12-09] MEDS: DiphenhydrAMINE 50 mg/ml Inj IVP PRN ×3 (00:05→19:23)
[2016-12-09] MEDS: Piperacillin/Tazobact 3.375 GM in Sodium Chloride 0.9% 100 ML IVPB SCH ×3 (06:30→21:12)
[2016-12-09 07:34] LABS: BASO % 0.4 % (0.0-2.0); EOS # 0.2 K/uL (0.0-0.7); EOS % 2.8 % (0.0-4.0); HEMATOCRIT 34.4 % (34.0-47.0); LYMPH # 1.6 K/uL (1.0-4.3); LYMPH % 23.1 % (20.0-40.0); MEAN CORPUSCULAR HGB CONC 31.6 g/dL (33.0-37.0); MEAN PLATELET VOLUME 8.2 fL (7.2-11.7); MONO # 0.5 K/uL (0.0-0.8); MONO % 7.5 % (0.0-10.0); RED CELL DISTRIBUTION WIDTH 16.2 % (11.5-14.5); WHITE BLOOD COUNT 7.1 K/uL (4.8-10.8)
[2016-12-09 08:20] LABS: CHLORIDE 103 mmol/L (98-107)
[2016-12-09 08:21] LABS: POTASSIUM 3.3 mmol/L (3.6-5.2); SODIUM 141 mmol/L (132-148)
[2016-12-09 08:23] LABS: AST/SGOT 18 U/L (14-36); BILIRUBIN,TOTAL 0.3 mg/dL (0.2-1.3); BLOOD UREA NITROGEN 3 mg/dL (7-17); CARBON DIOXIDE 30 mmol/L (22-30); GFR AFRICAN-AMERICAN > 60; TOTAL PROTEIN 7.1 g/dL (6.3-8.3)
[2016-12-09 08:24] LABS: ALKALINE PHOSPHATASE 152 U/L (38-126); ALT/SGPT 21 U/L (9-52); GLUCOSE,RANDOM 87 mg/dL (65-105)
[2016-12-09] MEDS ORDERED: Potassium Chloride 20 mEq/15 ml LIQ UD PO ONE (09:15)
[2016-12-09] MEDS: Multiple Vitamins Tab PO SCH (09:33)
[2016-12-09] MEDS: LIPASE/PROTEASE/AMYLASE 4,200 U ECC PO SCH ×3 (09:34→17:59)
[2016-12-09] MEDS: Sucralfate 1 gm/10 ml Oral Susp UD PO SCH ×3 (09:34→17:20)
[2016-12-09] MEDS: Dorzolamide 2% Opht Sol 10ml OU SCH ×3 (09:36→17:59)
[2016-12-09] MEDS: Fluticasone Nasal 50 mcg/Spray NAS SCH (09:36)
[2016-12-09] MEDS: Fluticasone-Salmeterol 250-50mcg Diskus IH SCH ×2 (09:54→19:22)
--- NOTE | 2016-12-09 11:06 | PN ---
DATE: 12/09/2016 LOCATION: 352, bed B. This is a 56-year-old female seen and examined at rounds without significant clinical changes or repo rted active bleeding. No nausea or vomiting. Appeared to be improving clinically. However, it has to be mentioned that the patient had some reported nausea with abdominal pain on and off again post o ral intake but with positive bowel movement last yesterday. No significant chest pain or palpitation. The entire chart is reviewed, including but not limited to the most recent lab and radiology study re sults, current and previous medication lists, current and the previous medical events as well as dolores rgies to medication list. Case discussed at length with the staff on the floor. The patient still has low hemoglobin of 10.9 but normal hematocrit with low indices as well as low po tassium 3.3, with decreased BUN but normal creatinine with low calcium of 8.0 and alkaline phosphatas e 152, but normal albumin and total protein. PHYSICAL EXAMINATION: GENERAL: A 56-year-old female. VITAL SIGNS: Afebrile with pulse of 76, respiratory rate 20-22, blood pressure 140/84. HEENT: Showed pale, dry oral mucoid membrane. Nonicteric sclerae. LUNGS: A few scattered crepitations. Decreased air entry at bases. HEART: Positive S1 and S2. ABDOMEN: Soft. Bowel sounds are present, slight distention. No mass or organomegaly. No rebound t enderness or guarding. RECTAL: The patient refused. EXTREMITIES: Without significant clubbing, cyanosis or edema. IMPRESSION: 1. Intermittent partial bowel obstruction, resolved, with an ileus. 2. Reexacerbation of peptic ulcer disease. 3. Hypochromic microcytic anemia. 4. Known history of diverticulosis with diverticulitis before. 5. Known history of seizure disorder, hypertension, bronchial asthma with hyperlipidemia. 6. Osteoarthritis by history. 7. Status post appendectomy as well as cholecystectomy by history. SUGGESTION: 1. Continue current management. 2. Zofran IV. 3. Adjust oral intake; no fat, no citrus and no seeds. 4. Further recommendation to follow. Flo Pena MD cc: 14 TT: 12/09/2016 11:06:14 Confirmation # [id number] Dictation # [id number] mn
--- NOTE | 2016-12-09 11:19 | CP.PCM.PN ---
Subjective - Date & Time of Evaluation Date of Evaluation: 12/09/16 Time of Evaluation: 07:45 - Subjective Subjective: Medicine Progress Note- Dr Narvaez's service Patient seen and examined. Patient states that she feels better today and is tolerating taking sips of her full liquid diet. She complains of chronic midepigastric abdominal pain and states that when she drinks liquids too quickly the pain worsens. Patient is scheduled for PICC line placement today. Pt states that she is able to use the bathroom without difficulty today. Pt says that she felt uneasy when she ambulated due to generalized weakness and fatigue. Denies fever, chills, vomiting, diarrhea, chest pain, shortness of breath and palpitations. Objective - Vital Signs/Intake and Output Vital Signs (last 24 hours): Temp Pulse Resp BP Pulse Ox 98.0 F 72 20 150/98 H 97 12/09/16 08:00 12/09/16 08:00 12/09/16 08:00 12/09/16 08:00 12/09/16 08:00 Intake and Output: 12/09/16 12/09/16 06:59 18:59 Intake Total 300 Output Total 1000 Balance -700 - Medications Medications: Current Medications Albuterol (Ventolin Hfa 90 Mcg/Actuation (8 G)) 0 puff INH Q6H PRN PRN Reason: Shortness of Breath Alprazolam (Xanax) 1 mg PO TID [facility] Last Admin: 12/09/16 09:44 Dose: 1 mg Atenolol (Tenormin) 100 mg PO DAILY [facility] Last Admin: 12/09/16 09:28 Dose: 100 mg Baclofen (Lioresal) 10 mg PO QID [facility] Last Admin: 12/09/16 09:33 Dose: 10 mg Diphenhydramine HCl (Benadryl) 25 mg IVP Q8H PRN PRN Reason: Itching / Pruritus Last Admin: 12/09/16 09:36 Dose: 25 mg Dorzolamide HCl (Trusopt) 0 ml OU TID [facility] Last Admin: 12/09/16 09:36 Dose: 1 drop Fluticasone Propionate (Flonase) 1 spr АНДРЕЙ DAILY [facility] Last Admin: 12/09/16 09:36 Dose: 1 spr Hydromorphone HCl (Dilaudid) 1 mg IVP Q4H PRN PRN Reason: Pain, severe (8-10) Last Admin: 12/09/16 09:37 Dose: 1 mg Levetiracetam 750 mg/ Sodium (Chloride) 107.5 mls @ 420 mls/hr IVPB Q12H [facility] Last Admin: 12/08/16 17:28 Dose: 420 mls/hr Piperacillin Sod/Tazobactam (Sod 3.375 gm/ Sodium Chloride) 100 mls @ 100 mls/ hr IVPB Q8H [facility] Last Admin: 12/08/16 21:17 Dose: 100 mls/hr Latanoprost (Xalatan Opht) 0 ml OU HS [facility] Last Admin: 12/08/16 21:16 Dose: 2.5 ml Multivitamins (Hexavitamin) 1 tab PO DAILY [facility] Last Admin: 12/09/16 09:33 Dose: 1 tab Ondansetron HCl (Zofran Inj) 4 mg IVP Q6H PRN PRN Reason: Nausea/Vomiting Last Admin: 12/09/16 00:20 Dose: 4 mg Pantoprazole Sodium (Protonix Inj) 40 mg IVP DAILY [facility] Last Admin: 12/09/16 09:29 Dose: 40 mg Fluticasone/Salmeterol (Advair Diskus 250/50) 1 puff IH RQ12 [facility] Last Admin: 12/09/16 09:54 Dose: 1 puff Sertraline HCl (Zoloft) 100 mg PO BID [facility] Last Admin: 12/09/16 09:34 Dose: 100 mg Sucralfate (Carafate Oral Susp) 1 gm PO ACTID [facility] Last Admin: 12/09/16 09:34 Dose: 1 gm Zolpidem Tartrate (Ambien) 5 mg PO HS [facility] Last Admin: 12/08/16 21:16 Dose: 5 mg - Labs Labs: 12/09/16 07:10 12/09/16 07:10 PT 11.1 SECONDS (9.7-12.2) 12/02/16 01:17 INR 1.0 12/02/16 01:17 APTT 26 SECONDS (21-34) 12/02/16 01:17 - Constitutional Appears: Non-toxic, No Acute Distress - Head Exam Head Exam: ATRAUMATIC, NORMOCEPHALIC - Eye Exam Eye Exam: EOMI, Normal appearance - ENT Exam ENT Exam: Mucous Membranes Moist - Respiratory Exam Respiratory Exam: Wheezes (mild expiratory wheezes throughout ), NORMAL BREATHING PATTERN. absent: Accessory Muscle Use, Chest Wall Tenderness, Rales, Rhonchi, Respiratory Distress - Cardiovascular Exam Cardiovascular Exam: REGULAR RHYTHM, +S1, +S2 - GI/Abdominal Exam GI & Abdominal Exam: Soft, Tenderness (mild ttp diffuse), Diminished Bowel Sounds. absent: Distended, Firm, Guarding, Rigid, Hernia, Mass, Normal Bowel Sounds - Extremities Exam Extremities Exam: Normal Inspection - Neurological Exam Neurological Exam: Alert, Awake, CN II-XII Intact, Oriented x3 - Psychiatric Exam Psychiatric exam: Normal Affect, Normal Mood - Skin Skin Exam: Dry, Intact, Normal Color, Warm Assessment and Plan - Assessment and Plan (Free Text) Assessment: (1) Partial small bowel obstruction Assessment & Plan: Consult GI- Dr. Pena- recommends continuing current management and avoiding citrus. EGD done 12/03/16 showed medium sized hiatal hernia, acute gastritis, and erythematous duodenopathy. Pathology - negative for H. Pylroi, consistent with gastric antral mucos with reactive gastropathy Consult Surgery- Dr. Vargas 12/08/16 - still on CLD with continued abdominal pain with having liquid NGT D/C 12/05/16 and CLD started as per Dr. Vargas Zosyn IVPB- DAY 8 started on 12/02 Dilaudid 1mg IVP Q4h PRN Baclofen 10mg PO QID Zofran 4mg IVP Q6h PRN Abdomen/Pelvis CT w IV contrast- s/p prior SB surgery. Findings consistent with partial small bowel obstruction. 17mm indeterminate lesion arising from upper pole of right kidney. Status: Acute (2) Anemia Assessment & Plan: Stable Hgb 10.9, Hct 34.9, MCV 78.9. (H/H on admission 11.9/37.3) Patient with microcytic anemia. iron 37, TIBC 288, ferritin 14.8, %sat 12 stool OB negative Consult GI- Dr. Pena EGD done 12/03/16 showed medium sized hiatal hernia, acute gastritis, and erythematous duodenopathy. As per GI, likely anemia of chronic disease. Status: Acute (3) Urinary retention Assessment & Plan: Queen in place UA 2+ blood and 15 RBC Urine culture negative Uro consult placed- Dr. Regan- help appreciated, f/u recs Status: Acute (4) Asthma Assessment & Plan: Well controlled Continue Advair 25/50mcg 1 puff IH Q12h Continue Albuterol 2 puff INH Q6h PRN Status: Acute (5) Anxiety Assessment & Plan: Controlled Xanax 1mg PO TID Status: Acute (6) Major depression Assessment & Plan: Controlled Continue Zoloft 100mg PO BID Status: Chronic (7) Seizure disorder Assessment & Plan: No seizures since admission Vimpat 200mg PO BID is unavailable. Consult Neuro- Dr. Contreras Keppra 750mg IVPB Q12h As per Dr. Araiza, if any seizures occur, increase dose to 1000 mg IVPB Q12H Status: Chronic (8) Chronic pancreatitis Assessment & Plan: Zenpep 25,000 PO TID Status: Acute (9) Hypokalemia Assessment & Plan: K+- 3.3 today. 40mEq KCl PO oral solution ordered Continue D5 1/2 NS w KCL 40meq @ 125cc/hr Continue to monitor (10) Insomnia Assessment & Plan: Ambien 10mg PO HS Status: Chronic (11) HTN (hypertension) Assessment & Plan: Atenolol 100mg PO Daily Status: Acute (12) Prophylactic measure Assessment & Plan: Protonix 40mg IVP Daily SCDs Patient does not have IV access due to poor veins PICC/mid line ordered Status: Acute All management as per Dr. Narvaez.
--- NOTE | 2016-12-09 11:34 | PCM.SURG1 ---
Surgeon's Initial Post Op Note - Surgeon's Notes Surgeon: Hugo Whyte MD Athletic Coordinator: NONE Type of Anesthesia: Local Pre-Operative Diagnosis: Poor venous access Operative Findings: US showed a patent right basilic vein. Post-Operative Diagnosis: Poor venous access Operation Performed: Right basilic vein single lumen picc placement, 37 cm. Tip in SVC. Specimen/Specimens Removed: none Estimated Blood Loss: EBL {In ML}: 2 Blood Products Given: N/A Drains Used: No Drains Post-Op Condition: Fair Date of Surgery/Procedure: 12/09/16 Time of Surgery/Procedure: 10:50
--- NOTE | 2016-12-09 12:41 | RAD ---
PROCEDURE: Date of procedure: 12/09/2016 Procedure: 1. Placement of a right arm PICC with ultrasound and fluoroscopic guidance, CPT 71229 2. PICC tip confirmation with spot radiograph and is in the superior vena cava Medications: 1 percent lidocaine Total Fluoro time: 4 seconds Radiation: 2mGy EBL: 2 cc HISTORY: Poor venous access TECHNIQUE: Following informed consent and procedure time-out, the patient was placed supine on the interventional table and the right arm prepped and draped in the usual sterile fashion. Ultrasound showed a patent and compressible right basilic vein. After the skin was anesthetized with lidocaine, the basilic vein was accessed with micro micropuncture technique using ultrasound guidance. A guidewire was then advanced under fluoroscopic guidance into the superior vena cava. An image documenting ultrasound guidance for vascular access was permanently saved. The length of the single-lumen 4 [place] PICC was trimmed to 37 centimeters and advanced through a peel-away sheath. The PICC was position with tip of PICC confirm a spot radiograph the superior vena cava. The PICC was secured to the patient's skin. The PICC was flushed. A biopatch and sterile dressing was applied. IMPRESSION: Placement of a single-lumen 4 [place] PICC trimmed to 37 centimeters via right basilic vein. The tip of the PICC is confirmed with spot radiograph and is in the superior vena cava.
--- NOTE | 2016-12-09 13:29 | US ---
PROCEDURE: Date of procedure: 12/09/2016 Procedure: 1. Ultrasound guidance for vascular access HISTORY: Poor venous access TECHNIQUE: Ultrasound was utilized for PICC placement in the right basilic vein. An image documenting ultrasound guidance for vascular access was permanently saved. IMPRESSION: Ultrasound guidance for vascular access for placement of a right arm PICC.
--- NOTE | 2016-12-09 17:09 | PN ---
DATE: 12/09/2016 HISTORY OF PRESENT ILLNESS: The patient is seen today lying in bed, somewhat uncomfortable due to ab dominal pain. She also states she is nauseous. She had 1 episode of vomiting today. PHYSICAL EXAMINATION: The abdomen remains tender in the upper quadrants. Bowel sounds are present. LABORATORY DATA: Her WBC is 7.1, which is essentially unchanged. IMPRESSION: My impression is that she continues to have obstructive symptoms, most likely from a par tial obstruction, possibly high grade. She has been taking clear liquids; however, I do not feel com fortable advancing her diet at this point. Rather, I have discussed this with Dr. Eladio Asif, and we wi ll reinsert the nasogastric tube, place her on total parenteral nutrition, and watch her and, if she does not improve, she may need a laparotomy. We will get a baseline obstructive series today and fol low with serial x-rays. Roger Vargas MD cc: [id number] TT: 12/09/2016 17:09:31 Confirmation # [id number] Dictation # [id number] elroy
[2016-12-09] MEDS ORDERED: Albuterol HFA 90 mcg/actuation (8 g) INH PRN (17:15)
[2016-12-09] MEDS: Dextrose 5%/0.9% NS 1,000 ML IV SCH (17:45)
--- NOTE | 2016-12-09 17:53 | RAD ---
PROCEDURE: Radiographs of the chest and abdomen (obstructive series) HISTORY: bowel obstruction COMPARISON: No prior. TECHNIQUE: AP radiograph of the chest, with upright and supine radiographs of the abdomen. FINDINGS: CHEST: Lungs: Clear. Cardiovascular: Normal size heart. No pulmonary vascular congestion. Pleura: No pleural fluid. No pneumothorax. Other findings: There is a left sided battery pack related to a cervical neurostimulator. ABDOMEN AND PELVIS: Bowel: There is residual oral contrast scattered in the colon and in the cecum. There is non specific bowel gas pattern. There is no evidence of air-fluid levels or bowel dilatation. There is no free intraperitoneal air. . Free air: None. Bones: Unremarkable. Other findings: An IVC filter remains in place. . IMPRESSION: Clear lungs. Nonobstructive bowel gas pattern.
[2016-12-09] MEDS: Latanoprost 2.5 ml Opht Soln OU SCH (22:00)
[2016-12-10] MEDS: HYDROmorphone 0.5 mg/0.5 ml ISec IVP PRN (01:20)
[2016-12-10] MEDS: DiphenhydrAMINE 50 mg/ml Inj IVP PRN ×3 (02:20→20:09)
[2016-12-10] MEDS: Dextrose 5%/0.9% NS 1,000 ML IV SCH ×4 (03:00→23:55)
[2016-12-10] MEDS: Piperacillin/Tazobact 3.375 GM in Sodium Chloride 0.9% 100 ML IVPB SCH ×3 (06:00→21:48)
[2016-12-10] MEDS: HYDROmorphone 1 mg/ml ISec IVP PRN ×4 (06:00→19:47)
[2016-12-10 06:56] LABS: BASO % 0.4 % (0.0-2.0); EOS # 0.2 K/uL (0.0-0.7); EOS % 2.7 % (0.0-4.0); LYMPH # 1.8 K/uL (1.0-4.3); LYMPH % 22.3 % (20.0-40.0); MEAN CELL VOLUME 79.8 fL (81.0-99.0); MEAN CORPUSCULAR HEMOGLOBIN 24.7 pg (27.0-31.0); MEAN PLATELET VOLUME 8.5 fL (7.2-11.7); MONO # 0.6 K/uL (0.0-0.8); MONO % 7.4 % (0.0-10.0); RED CELL DISTRIBUTION WIDTH 16.1 % (11.5-14.5)
[2016-12-10 07:25] LABS: CHLORIDE 105 mmol/L (98-107)
[2016-12-10 07:26] LABS: POTASSIUM 3.3 mmol/L (3.6-5.2); SODIUM 146 mmol/L (132-148)
[2016-12-10 07:28] LABS: ALKALINE PHOSPHATASE 141 U/L (38-126); ALT/SGPT 19 U/L (9-52); AST/SGOT 19 U/L (14-36); BILIRUBIN,TOTAL 0.2 mg/dL (0.2-1.3); CARBON DIOXIDE 28 mmol/L (22-30); GFR AFRICAN-AMERICAN > 60
[2016-12-10 07:29] LABS: BLOOD UREA NITROGEN 3 mg/dL (7-17); GLUCOSE,RANDOM 88 mg/dL (65-105)
[2016-12-10] MEDS ORDERED: Potassium Chloride 20 mEq/15 ml LIQ UD PO ONE (07:44)
--- NOTE | 2016-12-10 08:06 | RAD ---
HISTORY: NG tube positioning COMPARISON: 12/02/2016 FINDINGS: LUNGS: Right PICC line with tip extending into the proximal SVC. NG tube in stable position with distal tip not well visualized. Pacer device projects over the left chiquis thorax. Mild venous congestion. Patchy increased markings at the left lung base laterally. PLEURA: No significant pleural effusion identified, no pneumothorax apparent. CARDIOVASCULAR: Normal. OSSEOUS STRUCTURES: No significant abnormalities. VISUALIZED UPPER ABDOMEN: Normal. OTHER FINDINGS: None. IMPRESSION: Right PICC line with tip extending into the proximal SVC. NG tube in stable position with distal tip not well visualized. Pacer device projects over the left chiquis thorax. Mild venous congestion. Patchy increased markings at the left lung base laterally.
[2016-12-10] MEDS: Sucralfate 1 gm/10 ml Oral Susp UD PO SCH ×3 (08:22→16:53)
[2016-12-10] MEDS: Fluticasone-Salmeterol 250-50mcg Diskus IH SCH ×2 (09:41→20:00)
[2016-12-10] MEDS: Multiple Vitamins Tab PO SCH (10:35)
--- NOTE | 2016-12-10 10:48 | CP.PCM.PN ---
Subjective - Date & Time of Evaluation Date of Evaluation: 12/10/16 Time of Evaluation: 10:43 - Subjective Subjective: Medicine Progress Note- Dr. Ventura's Service: Patient seen and examined at bedside this morning. Patient is resting in bed with NGT in place on suction as per surgeon. Patient admits to abdominal pain, nausea and reports episodes of emesis overnight priot to NGT insertion. Objective - Vital Signs/Intake and Output Vital Signs (last 24 hours): Temp Pulse Resp BP Pulse Ox 97.8 F 66 20 109/68 91 L 12/10/16 08:23 12/10/16 08:23 12/10/16 08:23 12/10/16 08:23 12/10/16 08:23 Intake and Output: 12/10/16 12/10/16 06:59 18:59 Intake Total 2340 Output Total 1650 Balance 690 - Medications Medications: Current Medications Albuterol (Ventolin Hfa 90 Mcg/Actuation (8 G)) 0 puff INH RQ6 PRN PRN Reason: Shortness of Breath Alprazolam (Xanax) 1 mg PO TID [facility] Last Admin: 12/10/16 10:35 Dose: 1 mg Atenolol (Tenormin) 100 mg PO DAILY [facility] Last Admin: 12/10/16 10:34 Dose: 100 mg Baclofen (Lioresal) 10 mg PO QID [facility] Last Admin: 12/10/16 10:35 Dose: 10 mg Diphenhydramine HCl (Benadryl) 25 mg IVP Q8H PRN PRN Reason: Itching / Pruritus Last Admin: 12/10/16 02:20 Dose: 25 mg Dorzolamide HCl (Trusopt) 0 ml OU TID [facility] Last Admin: 12/09/16 17:59 Dose: 1 drop Fluticasone Propionate (Flonase) 1 spr АНДРЕЙ DAILY [facility] Last Admin: 12/09/16 09:36 Dose: 1 spr Hydromorphone HCl (Dilaudid) 1 mg IVP Q4H PRN PRN Reason: Pain, severe (8-10) Last Admin: 12/10/16 10:35 Dose: 1 mg Levetiracetam 750 mg/ Sodium (Chloride) 107.5 mls @ 420 mls/hr IVPB Q12H [facility] Last Admin: 12/10/16 05:25 Dose: 420 mls/hr Piperacillin Sod/Tazobactam (Sod 3.375 gm/ Sodium Chloride) 100 mls @ 100 mls/ hr IVPB Q8H [facility] Last Admin: 12/10/16 06:00 Dose: 100 mls/hr Dextrose/Sodium Chloride (Dextrose 5%/0.9% Ns 1000 Ml) 1,000 mls @ 100 mls/hr IV .Q10H [facility] Last Admin: 12/10/16 05:00 Dose: 100 mls/hr Latanoprost (Xalatan Opht) 0 ml OU HS [facility] Last Admin: 12/09/16 22:00 Dose: 2.5 ml Multivitamins (Hexavitamin) 1 tab PO DAILY [facility] Last Admin: 12/10/16 10:35 Dose: 1 tab Ondansetron HCl (Zofran Inj) 4 mg IVP Q6H PRN PRN Reason: Nausea/Vomiting Last Admin: 12/10/16 06:04 Dose: 4 mg Pantoprazole Sodium (Protonix Inj) 40 mg IVP DAILY [facility] Last Admin: 12/10/16 10:34 Dose: 40 mg Fluticasone/Salmeterol (Advair Diskus 250/50) 1 puff IH RQ12 [facility] Last Admin: 12/10/16 09:41 Dose: 1 puff Sertraline HCl (Zoloft) 100 mg PO BID [facility] Last Admin: 12/09/16 18:00 Dose: 100 mg Sucralfate (Carafate Oral Susp) 1 gm PO ACTID [facility] Last Admin: 12/10/16 08:22 Dose: Not Given Zolpidem Tartrate (Ambien) 5 mg PO HS [facility] Last Admin: 12/09/16 22:04 Dose: 5 mg - Labs Labs: 12/10/16 06:30 12/10/16 06:30 PT 11.1 SECONDS (9.7-12.2) 12/02/16 01:17 INR 1.0 12/02/16 01:17 APTT 26 SECONDS (21-34) 12/02/16 01:17 - Constitutional Appears: No Acute Distress - Head Exam Head Exam: NORMAL INSPECTION, NORMOCEPHALIC - Eye Exam Eye Exam: EOMI, Normal appearance - ENT Exam ENT Exam: Mucous Membranes Moist - Respiratory Exam Respiratory Exam: Clear to Ausculation Bilateral, NORMAL BREATHING PATTERN - Cardiovascular Exam Cardiovascular Exam: REGULAR RHYTHM, +S1, +S2 - GI/Abdominal Exam GI & Abdominal Exam: Soft, Tenderness. absent: Distended - Extremities Exam Extremities Exam: Full ROM, Normal Inspection - Back Exam Back Exam: NORMAL INSPECTION - Neurological Exam Neurological Exam: Alert, Oriented x3 - Psychiatric Exam Psychiatric exam: Normal Affect, Normal Mood - Skin Skin Exam: Normal Color, Warm Assessment and Plan - Assessment and Plan (Free Text) Assessment: (1) Partial small bowel obstruction Assessment & Plan: Consult GI- Dr. Pena- recommends continuing current management and avoiding citrus. EGD done 12/03/16 showed medium sized hiatal hernia, acute gastritis, and erythematous duodenopathy. Pathology - negative for H. Pylroi, consistent with gastric antral mucos with reactive gastropathy Consult Surgery- Dr. Vargas NGT D/C 12/05/16 and CLD started as per Dr. Vargas. NGT restarted last night . Zosyn IVPB- DAY 8 started on 12/02 Dilaudid 1mg IVP Q4h PRN Baclofen 10mg PO QID Zofran 4mg IVP Q6h PRN Abdomen/Pelvis CT w IV contrast- s/p prior SB surgery. Findings consistent with partial small bowel obstruction. 17mm indeterminate lesion arising from upper pole of right kidney. Status: Acute (2) Anemia Assessment & Plan: Stable Hgb 10.5, Hct 34.0, MCV 79.8. (H/H on admission 11.9/37.3) Patient with microcytic anemia. iron 37, TIBC 288, ferritin 14.8, %sat 12 stool OB negative Consult GI- Dr. Pena EGD done 12/03/16 showed medium sized hiatal hernia, acute gastritis, and erythematous duodenopathy. As per GI, likely anemia of chronic disease. Status: Acute (3) Urinary retention Assessment & Plan: Queen in place UA 2+ blood and 15 RBC Urine culture negative Uro consult placed- Dr. Regan- help appreciated, f/u recs Status: Acute (4) Asthma Assessment & Plan: Well controlled Continue Advair 25/50mcg 1 puff IH Q12h Continue Albuterol 2 puff INH Q6h PRN Status: Acute (5) Anxiety Assessment & Plan: Controlled Xanax 1mg PO TID Status: Acute (6) Major depression Assessment & Plan: Controlled Continue Zoloft 100mg PO BID Status: Chronic (7) Seizure disorder Assessment & Plan: No seizures since admission Vimpat 200mg PO BID is unavailable. Consult Neuro- Dr. Contreras Keppra 750mg IVPB Q12h As per Dr. Araiza, if any seizures occur, increase dose to 1000 mg IVPB Q12H Status: Chronic (8) Chronic pancreatitis Assessment & Plan: Zenpep 25,000 PO TID Status: Acute (9) Hypokalemia Assessment & Plan: K+- 3.3 again today. 20mEq KCl IVPB ordered Continue D5 1/2 NS w KCL 40meq @ 125cc/hr Continue to monitor (10) Insomnia Assessment & Plan: Ambien 10mg PO HS Status: Chronic (11) HTN (hypertension) Assessment & Plan: Atenolol 100mg PO Daily Status: Acute (12) Prophylactic measure Assessment & Plan: Protonix 40mg IVP Daily SCDs Patient does not have IV access due to poor veins PICC/mid line ordered Status: Acute All management as per Dr. Ventura.
[2016-12-10] MEDS: Fluticasone Nasal 50 mcg/Spray NAS SCH (10:50)
[2016-12-10] MEDS: Dorzolamide 2% Opht Sol 10ml OU SCH ×3 (10:50→18:21)
[2016-12-10] MEDS: LIPASE/PROTEASE/AMYLASE 4,200 U ECC PO SCH ×3 (10:50→18:20)
--- NOTE | 2016-12-10 11:21 | PN ---
DATE: 12/10/2016 LOCATION: 352, bed B. This is a 56-year-old female, seen and examined in rounds without reported significant clinical navas es, with recently inserted NG tube connected to low continuous suction due to abdominal distention. The patient appeared to be awake and alert with a complaint of abdominal pain and distention. The entire chart is reviewed including, but not limited to, the most recent lab and radiology study r esults, current and previous medication lists, current and previous medical events. Case discussed w ith the staff at length. Today's labs showed low hemoglobin of 10.5 with low indices, but normal platelet count with low potas sium 3.3, low calcium 8.0 with alkaline phosphatase 141. The patient had abdominal obstructive x-ray yesterday indicative of nonobstructive bowel gas pattern with clear lungs. Chest x-ray done today indicative of NG tube is in place with mild vascular conges tion and positive lung infiltrate. PHYSICAL EXAMINATION: GENERAL: A 56-year-old female, awake, alert. VITAL SIGNS: Afebrile with a pulse of 70, respiratory rate 20-22, blood pressure 124/64. HEENT: Showed pale, dry oral mucoid membrane. Nonicteric sclerae. LUNGS: Few scattered crepitation, decreased air entry at bases. HEART: Positive S1 and S2. ABDOMEN: Soft. Bowel sounds are present. No mass or organomegaly. No rebound tenderness or guardi ng, but with mild distention. NG tube is in place. It has to be mentioned there is no evidence of a ctive bleeding through the NG tube suction. EXTREMITIES: With lower extremities mild edematous changes. No clubbing or cyanosis. NEUROLOGIC: No reported new neurologic deficits, sensory or motor. IMPRESSION: 1. Intermittent partial bowel obstruction. 2. Reexacerbation of peptic ulcer disease. 3. Severe anxiety syndrome. 4. Anemia, secondary to above. 5. Bronchial asthma by history. 6. Seizure disorder by history. 7. Major depression by history. 8. Known history of hypertension. 9. Osteoarthritis by history. 10. Known history of hyperlipidemia with status post appendectomy and cholecystectomy in the past. SUGGESTION: 1. Continue current management. 2. Antireflux measures. 3. Repeat sectional and abdominal CAT scan. Flo Pena MD cc: [id number] TT: 12/10/2016 11:20:55 Confirmation # [id number] Dictation # [id number] en
[2016-12-10] MEDS: Latanoprost 2.5 ml Opht Soln OU SCH (21:47)
[2016-12-11] MEDS: Dextrose 5%/0.9% NS 1,000 ML IV SCH ×2 (01:00→08:38)
[2016-12-11] MEDS: HYDROmorphone 1 mg/ml ISec IVP PRN ×6 (01:10→22:56)
[2016-12-11] MEDS: DiphenhydrAMINE 50 mg/ml Inj IVP PRN ×2 (05:15→14:39)
[2016-12-11] MEDS: Piperacillin/Tazobact 3.375 GM in Sodium Chloride 0.9% 100 ML IVPB SCH ×3 (06:25→21:08)
[2016-12-11 07:24] LABS: CHLORIDE 106 mmol/L (98-107); POTASSIUM 3.5 mmol/L (3.6-5.2); SODIUM 143 mmol/L (132-148)
[2016-12-11 07:26] LABS: ALKALINE PHOSPHATASE 123 U/L (38-126); AST/SGOT 13 U/L (14-36); BILIRUBIN,TOTAL 0.4 mg/dL (0.2-1.3); CARBON DIOXIDE 25 mmol/L (22-30); GFR AFRICAN-AMERICAN > 60; TOTAL PROTEIN 6.6 g/dL (6.3-8.3)
[2016-12-11 07:27] LABS: ALT/SGPT 16 U/L (9-52); BLOOD UREA NITROGEN 3 mg/dL (7-17); GLUCOSE,RANDOM 81 mg/dL (65-105)
--- NOTE | 2016-12-11 07:32 | CP.PCM.PN ---
Subjective - Date & Time of Evaluation Date of Evaluation: 12/11/16 Time of Evaluation: 09:00 - Subjective Subjective: Medicine Progress Note- Dr. Ventura's service Patient seen and examined at bedside this AM. NGT removed last night. Tolerating liquid diet this AM. Patient had one loose stool since. She continues to experience lower abdominal and was seen by Dr. Regan. Continues to complain of abdominal pain. Objective - Vital Signs/Intake and Output Vital Signs (last 24 hours): Temp Pulse Resp BP Pulse Ox 97.4 F L 62 20 134/87 96 12/11/16 00:00 12/11/16 05:00 12/11/16 05:00 12/11/16 05:00 12/11/16 05:00 Intake and Output: 12/11/16 12/11/16 06:59 18:59 Intake Total 1060 Output Total 1300 Balance -240 - Medications Medications: Current Medications Albuterol (Ventolin Hfa 90 Mcg/Actuation (8 G)) 0 puff INH RQ6 PRN PRN Reason: Shortness of Breath Alprazolam (Xanax) 1 mg PO TID [facility] Last Admin: 12/10/16 18:20 Dose: 1 mg Atenolol (Tenormin) 100 mg PO DAILY [facility] Last Admin: 12/10/16 10:34 Dose: 100 mg Baclofen (Lioresal) 10 mg PO QID [facility] Last Admin: 12/10/16 21:46 Dose: 10 mg Diphenhydramine HCl (Benadryl) 25 mg IVP Q8H PRN PRN Reason: Itching / Pruritus Last Admin: 12/11/16 05:15 Dose: 25 mg Dorzolamide HCl (Trusopt) 0 ml OU TID [facility] Last Admin: 12/10/16 18:21 Dose: 1 drop Fluticasone Propionate (Flonase) 1 spr АНДРЕЙ DAILY [facility] Last Admin: 12/10/16 10:50 Dose: 1 spr Hydromorphone HCl (Dilaudid) 1 mg IVP Q4H PRN PRN Reason: Pain, severe (8-10) Last Admin: 12/11/16 05:15 Dose: 1 mg Levetiracetam 750 mg/ Sodium (Chloride) 107.5 mls @ 420 mls/hr IVPB Q12H [facility] Last Admin: 12/11/16 04:35 Dose: 420 mls/hr Piperacillin Sod/Tazobactam (Sod 3.375 gm/ Sodium Chloride) 100 mls @ 100 mls/ hr IVPB Q8H [facility] Last Admin: 12/11/16 06:25 Dose: 100 mls/hr Dextrose/Sodium Chloride (Dextrose 5%/0.9% Ns 1000 Ml) 1,000 mls @ 100 mls/hr IV .Q10H [facility] Last Admin: 12/11/16 01:00 Dose: 100 mls/hr Latanoprost (Xalatan Opht) 0 ml OU HS [facility] Last Admin: 12/10/16 21:47 Dose: 2.5 ml Multivitamins (Hexavitamin) 1 tab PO DAILY [facility] Last Admin: 12/10/16 10:35 Dose: 1 tab Ondansetron HCl (Zofran Inj) 4 mg IVP Q6H PRN PRN Reason: Nausea/Vomiting Last Admin: 12/11/16 01:15 Dose: 4 mg Pantoprazole Sodium (Protonix Inj) 40 mg IVP DAILY [facility] Last Admin: 12/10/16 10:34 Dose: 40 mg Fluticasone/Salmeterol (Advair Diskus 250/50) 1 puff IH RQ12 [facility] Last Admin: 12/10/16 20:00 Dose: Not Given Sertraline HCl (Zoloft) 100 mg PO BID [facility] Last Admin: 12/10/16 18:20 Dose: 100 mg Sucralfate (Carafate Oral Susp) 1 gm PO ACTID [facility] Last Admin: 12/10/16 16:53 Dose: 1 gm Zolpidem Tartrate (Ambien) 5 mg PO HS [facility] Last Admin: 12/10/16 21:45 Dose: 5 mg - Labs Labs: 12/10/16 06:30 12/11/16 06:51 PT 11.1 SECONDS (9.7-12.2) 12/02/16 01:17 INR 1.0 12/02/16 01:17 APTT 26 SECONDS (21-34) 12/02/16 01:17 - Constitutional Appears: No Acute Distress - Head Exam Head Exam: NORMAL INSPECTION, NORMOCEPHALIC - Eye Exam Eye Exam: EOMI, Normal appearance - ENT Exam ENT Exam: Mucous Membranes Moist - Neck Exam Neck Exam: Full ROM, Normal Inspection - Respiratory Exam Respiratory Exam: Clear to Ausculation Bilateral, NORMAL BREATHING PATTERN - Cardiovascular Exam Cardiovascular Exam: REGULAR RHYTHM, +S1, +S2 - GI/Abdominal Exam GI & Abdominal Exam: Soft, Tenderness. absent: Distended - Extremities Exam Extremities Exam: Full ROM, Normal Inspection - Neurological Exam Neurological Exam: Alert, Oriented x3 - Skin Skin Exam: Normal Color, Warm Assessment and Plan - Assessment and Plan (Free Text) Assessment: (1) Partial small bowel obstruction Assessment & Plan: Consult GI- Dr. Pena- recommends continuing current management and avoiding citrus. EGD done 12/03/16 showed medium sized hiatal hernia, acute gastritis, and erythematous duodenopathy. Pathology - negative for H. Pylroi, consistent with gastric antral mucos with reactive gastropathy Consult Surgery- Dr. Vargas NGT D/C 12/10/16 and CLD started as per Dr. Vargas. Zosyn IVPB- started on 12/02 Dilaudid 1mg IVP Q4h PRN Baclofen 10mg PO QID Zofran 4mg IVP Q6h PRN Abdomen/Pelvis CT w IV contrast- s/p prior SB surgery. Findings consistent with partial small bowel obstruction. 17mm indeterminate lesion arising from upper pole of right kidney. Status: Acute (2) Anemia Assessment & Plan: Stable Hgb 10.3, Hct 32.3, MCV 79.8. (H/H on admission 11.9/37.3) Patient with microcytic anemia. iron 37, TIBC 288, ferritin 14.8, %sat 12 stool OB negative Consult GI- Dr. Pena EGD done 12/03/16 showed medium sized hiatal hernia, acute gastritis, and erythematous duodenopathy. As per GI, likely anemia of chronic disease. Status: Acute (3) Urinary retention Assessment & Plan: Queen in place UA 2+ blood and 15 RBC Urine culture negative Uro consult placed- Dr. Regan- help appreciated, f/u recs 17mm indeterminate lesion arising from upper pole of right kidney seen on CT. Status: Acute (4) Asthma Assessment & Plan: Well controlled Continue Advair 25/50mcg 1 puff IH Q12h Continue Albuterol 2 puff INH Q6h PRN Status: Acute (5) Anxiety Assessment & Plan: Controlled Xanax 1mg PO TID Status: Acute (6) Major depression Assessment & Plan: Controlled Continue Zoloft 100mg PO BID Status: Chronic (7) Seizure disorder Assessment & Plan: No seizures since admission Vimpat 200mg PO BID is unavailable. Consult Neuro- Dr. Ben Tamayo 750mg IVPB Q12h As per Dr. Araiza, if any seizures occur, increase dose to 1000 mg IVPB Q12H Status: Chronic (8) Chronic pancreatitis Assessment & Plan: Zenpep 25,000 PO TID Status: Acute (9) Hypokalemia Assessment & Plan: K+- 3.5 again today. 20mEq KCl IVPB ordered Continue D5 1/2 NS w KCL 40meq @ 125cc/hr Continue to monitor (10) Insomnia Assessment & Plan: Ambien 10mg PO HS Status: Chronic (11) HTN (hypertension) Assessment & Plan: Atenolol 100mg PO Daily Status: Acute (12) Prophylactic measure Assessment & Plan: Protonix 40mg IVP Daily SCDs Patient does not have IV access due to poor veins PICC/mid line ordered Status: Acute All management as per Dr. Ventura.
[2016-12-11 07:36] LABS: BASO # 0.1 K/uL (0.0-0.2); BASO % 0.8 % (0.0-2.0); EOS # 0.2 K/uL (0.0-0.7); EOS % 3.1 % (0.0-4.0); HEMATOCRIT 32.3 % (34.0-47.0); LYMPH % 27.8 % (20.0-40.0); MEAN CELL VOLUME 78.8 fL (81.0-99.0); MEAN CORPUSCULAR HGB CONC 31.8 g/dL (33.0-37.0); MEAN PLATELET VOLUME 8.6 fL (7.2-11.7); MONO # 0.5 K/uL (0.0-0.8); MONO % 6.7 % (0.0-10.0); RED CELL DISTRIBUTION WIDTH 16.4 % (11.5-14.5); WHITE BLOOD COUNT 7.3 K/uL (4.8-10.8)
[2016-12-11] MEDS: Sucralfate 1 gm/10 ml Oral Susp UD PO SCH ×3 (08:32→16:50)
[2016-12-11] MEDS: Fluticasone-Salmeterol 250-50mcg Diskus IH SCH (10:16)
[2016-12-11] MEDS: Dorzolamide 2% Opht Sol 10ml OU SCH ×3 (10:29→17:37)
[2016-12-11] MEDS: Fluticasone Nasal 50 mcg/Spray NAS SCH (10:31)
[2016-12-11] MEDS: LIPASE/PROTEASE/AMYLASE 4,200 U ECC PO SCH ×3 (10:32→17:36)
[2016-12-11] MEDS: Multiple Vitamins Tab PO SCH (10:34)
--- NOTE | 2016-12-11 12:43 | PN ---
DATE: 12/11/2016 SUBJECTIVE: The patient is noted to be comfortable, resting in bed. Still complains of left upper q uadrant and now a suprapubic abdominal pain. States that she has problems urinating, but has had the se issues in the past and has seen Dr. Frederic Regan for them. PHYSICAL EXAMINATION: VITAL SIGNS: Temperature is 98, blood pressure is 136/80 and pulse rate is 67 and regular. ABDOMEN: Reveals the same tenderness in the left upper quadrant which is basically unchanged. The remainder of physical exam unremarkable. Because the patient appears to be tolerating a full liquid diet without any evidence of nausea or vom iting, plus she had a normal obstructive series 2 days ago, I feel it warranted, despite the abdomina l pain, to advance her diet to regular. If she tolerates a regular diet, other causes of the abdomin al pain should be ruled out. It appears that the obstruction has resolved without surgery. She will be monitored on a regular diet, and if she continues to do well she can be discharged at that point. Roger Vargas MD cc: [id number] TT: 12/11/2016 12:43:09 Confirmation # [id number] Dictation # [id number] [email or web address]
[2016-12-11] MEDS: Latanoprost 2.5 ml Opht Soln OU SCH (21:22)
[2016-12-12] MEDS: HYDROmorphone 1 mg/ml ISec IVP PRN ×4 (04:35→19:04)
[2016-12-12] MEDS: DiphenhydrAMINE 50 mg/ml Inj IVP PRN ×2 (04:42→12:44)
[2016-12-12] MEDS: Piperacillin/Tazobact 3.375 GM in Sodium Chloride 0.9% 100 ML IVPB SCH ×3 (06:03→21:08)
[2016-12-12 06:43] LABS: BASO % 0.3 % (0.0-2.0); EOS # 0.2 K/uL (0.0-0.7); EOS % 2.6 % (0.0-4.0); HEMATOCRIT 33.2 % (34.0-47.0); LYMPH % 24.6 % (20.0-40.0); MEAN CELL VOLUME 78.9 fL (81.0-99.0); MEAN CORPUSCULAR HEMOGLOBIN 25.1 pg (27.0-31.0); MEAN CORPUSCULAR HGB CONC 31.8 g/dL (33.0-37.0); MEAN PLATELET VOLUME 8.3 fL (7.2-11.7); MONO # 0.6 K/uL (0.0-0.8); MONO % 6.9 % (0.0-10.0); RED CELL DISTRIBUTION WIDTH 16.2 % (11.5-14.5); WHITE BLOOD COUNT 8.3 K/uL (4.8-10.8)
[2016-12-12 07:23] LABS: CHLORIDE 105 mmol/L (98-107); POTASSIUM 3.3 mmol/L (3.6-5.2); SODIUM 144 mmol/L (132-148)
[2016-12-12 07:25] LABS: BILIRUBIN,TOTAL 0.4 mg/dL (0.2-1.3); GFR AFRICAN-AMERICAN > 60
[2016-12-12 07:26] LABS: ALKALINE PHOSPHATASE 115 U/L (38-126); ALT/SGPT 15 U/L (9-52); AST/SGOT 14 U/L (14-36); BLOOD UREA NITROGEN 5 mg/dL (7-17); CARBON DIOXIDE 28 mmol/L (22-30); GLUCOSE,RANDOM 93 mg/dL (65-105); PHOSPHOROUS 3.6 mg/dL (2.5-4.5); TOTAL PROTEIN 6.6 g/dL (6.3-8.3)
[2016-12-12 07:27] LABS: CALCIUM 7.9 mg/dl (8.6-10.4); MAGNESIUM 1.8 mg/dL (1.6-2.3)
[2016-12-12] MEDS: Sucralfate 1 gm/10 ml Oral Susp UD PO SCH ×3 (08:28→17:54)
--- NOTE | 2016-12-12 09:46 | CP.PCM.PN ---
Subjective - Date & Time of Evaluation Date of Evaluation: 12/12/16 Time of Evaluation: 07:30 - Subjective Subjective: Medicine Progress note- Dr. Ventura's Service: Patient seen and examined at bedside this AM. Patient is complaining of 8 out 10 abdominal pain that is the same as before. She was given a regular diet which was not able to tolerate overnight. Patient reports nausea and vomiting overnight. She reports 1 BM after liquid diet yesterday. Stool was watery. No other complaints this AM. Objective - Vital Signs/Intake and Output Vital Signs (last 24 hours): Temp Pulse Resp BP Pulse Ox 98.0 F 65 20 134/60 96 12/12/16 08:37 12/12/16 08:37 12/12/16 08:37 12/12/16 08:37 12/12/16 08:37 Intake and Output: 12/12/16 12/12/16 06:59 18:59 Intake Total 1150 Output Total 1500 Balance -350 - Medications Medications: Current Medications Albuterol (Ventolin Hfa 90 Mcg/Actuation (8 G)) 0 puff INH RQ6 PRN PRN Reason: Shortness of Breath Alprazolam (Xanax) 1 mg PO TID [facility] Last Admin: 12/11/16 17:36 Dose: 1 mg Atenolol (Tenormin) 100 mg PO DAILY [facility] Last Admin: 12/11/16 10:30 Dose: 100 mg Baclofen (Lioresal) 10 mg PO QID [facility] Last Admin: 12/11/16 21:09 Dose: 10 mg Diphenhydramine HCl (Benadryl) 25 mg IVP Q8H PRN PRN Reason: Itching / Pruritus Last Admin: 12/12/16 04:42 Dose: 25 mg Dorzolamide HCl (Trusopt) 0 ml OU TID [facility] Last Admin: 12/11/16 17:37 Dose: 1 drop Fluticasone Propionate (Flonase) 1 spr АНДРЕЙ DAILY [facility] Last Admin: 12/11/16 10:31 Dose: 1 spr Hydromorphone HCl (Dilaudid) 1 mg IVP Q4H PRN PRN Reason: Pain, severe (8-10) Last Admin: 12/12/16 04:35 Dose: 1 mg Levetiracetam 750 mg/ Sodium (Chloride) 107.5 mls @ 420 mls/hr IVPB Q12H [facility] Last Admin: 12/12/16 05:22 Dose: 420 mls/hr Piperacillin Sod/Tazobactam (Sod 3.375 gm/ Sodium Chloride) 100 mls @ 100 mls/ hr IVPB Q8H [facility] Last Admin: 12/12/16 06:03 Dose: 100 mls/hr Latanoprost (Xalatan Opht) 0 ml OU HS [facility] Last Admin: 12/11/16 21:22 Dose: 2.5 ml Multivitamins (Hexavitamin) 1 tab PO DAILY [facility] Last Admin: 12/11/16 10:34 Dose: 1 tab Ondansetron HCl (Zofran Inj) 4 mg IVP Q6H PRN PRN Reason: Nausea/Vomiting Last Admin: 12/12/16 05:03 Dose: 4 mg Pantoprazole Sodium (Protonix Inj) 40 mg IVP DAILY [facility] Last Admin: 12/11/16 10:23 Dose: 40 mg Fluticasone/Salmeterol (Advair Diskus 250/50) 1 puff IH RQ12 [facility] Last Admin: 12/11/16 10:16 Dose: Not Given Sertraline HCl (Zoloft) 100 mg PO BID [facility] Last Admin: 12/11/16 17:37 Dose: 100 mg Sucralfate (Carafate Oral Susp) 1 gm PO ACTID [facility] Last Admin: 12/12/16 08:28 Dose: 1 gm Zolpidem Tartrate (Ambien) 5 mg PO HS [facility] Last Admin: 12/11/16 21:09 Dose: 5 mg - Labs Labs: 12/12/16 06:20 12/12/16 06:20 PT 11.1 SECONDS (9.7-12.2) 12/02/16 01:17 INR 1.0 12/02/16 01:17 APTT 26 SECONDS (21-34) 12/02/16 01:17 - Constitutional Appears: No Acute Distress - Head Exam Head Exam: NORMAL INSPECTION, NORMOCEPHALIC - Eye Exam Eye Exam: EOMI, Normal appearance - ENT Exam ENT Exam: Mucous Membranes Moist - Neck Exam Neck Exam: Full ROM, Normal Inspection - Respiratory Exam Respiratory Exam: Clear to Ausculation Bilateral, NORMAL BREATHING PATTERN - Cardiovascular Exam Cardiovascular Exam: REGULAR RHYTHM, +S1, +S2 - GI/Abdominal Exam GI & Abdominal Exam: Soft, Tenderness, Hypoactive Bowel Sounds. absent: Distended - Extremities Exam Extremities Exam: Full ROM, Normal Inspection - Back Exam Back Exam: NORMAL INSPECTION - Neurological Exam Neurological Exam: Alert, Awake, Oriented x3 Assessment and Plan - Assessment and Plan (Free Text) Assessment: (1) Partial small bowel obstruction Assessment & Plan: Consult GI- Dr. Pena- recommends continuing current management and avoiding citrus. EGD done 12/03/16 showed medium sized hiatal hernia, acute gastritis, and erythematous duodenopathy. Pathology - negative for H. Pylroi, consistent with gastric antral mucos with reactive gastropathy Consult Surgery- Dr. Vargas NGT D/C 12/10/16 and CLD started as per Dr. Vargas. Patient's diet was advanced to regular and patient is unable to tolerate. Zosyn IVPB- started on 12/02- DAY 10 Dilaudid 1mg IVP Q4h PRN Baclofen 10mg PO QID Zofran 4mg IVP Q6h PRN Abdomen/Pelvis CT w IV contrast- s/p prior SB surgery. Findings consistent with partial small bowel obstruction. 17mm indeterminate lesion arising from upper pole of right kidney. Status: Acute (2) Anemia Assessment & Plan: Stable Hgb 10.6, Hct 33.2. (H/H on admission 11.9/37.3) Patient with microcytic anemia. iron 37, TIBC 288, ferritin 14.8, %sat 12 stool OB negative Consult GI- Dr. Pena EGD done 12/03/16 showed medium sized hiatal hernia, acute gastritis, and erythematous duodenopathy. As per GI, likely anemia of chronic disease. Status: Acute (3) Urinary retention Assessment & Plan: Queen in place UA 2+ blood and 15 RBC Urine culture negative Uro consult placed- Dr. Regan- help appreciated 17mm indeterminate lesion arising from upper pole of right kidney seen on CT. Status: Acute (4) Asthma Assessment & Plan: Well controlled Continue Advair 25/50mcg 1 puff IH Q12h Continue Albuterol 2 puff INH Q6h PRN Status: Acute (5) Anxiety Assessment & Plan: Controlled Xanax 1mg PO TID Status: Acute (6) Major depression Assessment & Plan: Controlled Continue Zoloft 100mg PO BID Status: Chronic (7) Seizure disorder Assessment & Plan: No seizures since admission Vimpat 200mg PO BID is unavailable. Consult Neuro- Dr. Ben Tamayo 750mg IVPB Q12h As per Dr. Araiza, if any seizures occur, increase dose to 1000 mg IVPB Q12H Status: Chronic (8) Chronic pancreatitis Assessment & Plan: Zenpep 25,000 PO TID Status: Acute (9) Hypokalemia Assessment & Plan: K+- 3.3 again today. 20mEq KCl IVPB ordered Continue D5 1/2 NS w KCL 40meq @ 125cc/hr Continue to monitor (10) Insomnia Assessment & Plan: Ambien 10mg PO HS Status: Chronic (11) HTN (hypertension) Assessment & Plan: Atenolol 100mg PO Daily Status: Acute (12) Prophylactic measure Assessment & Plan: Protonix 40mg IVP Daily SCDs Patient does not have IV access due to poor veins PICC/mid line ordered Status: Acute All management as per Dr. Ventura.
[2016-12-12] MEDS: Multiple Vitamins Tab PO SCH (10:12)
[2016-12-12] MEDS: Dorzolamide 2% Opht Sol 10ml OU SCH ×3 (10:13→17:53)
[2016-12-12] MEDS: Fluticasone Nasal 50 mcg/Spray NAS SCH (10:23)
[2016-12-12] MEDS: Fluticasone-Salmeterol 250-50mcg Diskus IH SCH ×2 (10:25→20:41)
[2016-12-12] MEDS: LIPASE/PROTEASE/AMYLASE 4,200 U ECC PO SCH ×3 (10:49→17:56)
--- NOTE | 2016-12-12 12:21 | PN ---
DATE: 12/12/2016 LOCATION: 352, bed B. This is a 56-year-old female seen and examined on rounds without significant clinical changes or repo rted active bleeding. Appeared to be awake, alert and oriented, tolerating clear liquid diet since e maricarmen this morning despite intermittent periods of abdominal pain, unable to tolerate solid diet. No reported active bleeding, but had bowel movement post clear liquid. The entire chart is reviewed, including but not limited to the most recent lab and radiology study re sults, current and previous medication list, current and the previous medical events. Case discussed with the staff at length. The latest hemoglobin is 10.6 with hematocrit 33.2 with low indices highl y suggestive of hypochromic microcytic anemia with low potassium 3.3 and low calcium 7.9 with low alb umin 3.3. Most recent chest x-ray report and film is seen with mild congestion and possible early pneumonia in the left lung. PHYSICAL EXAMINATION: GENERAL: A 56-year-old female. VITAL SIGNS: Afebrile with pulse of 70, respiratory rate 20-22, blood pressure 138/62. HEENT: Showed pale, dry oral mucoid membrane. Nonicteric sclerae. LUNGS: Few scattered crepitations, decreased air entry at bases. HEART: Positive S1 and S2. ABDOMEN: Soft with mild distention with generalized tenderness. Bowel movements are hypoactive. No mass or organomegaly. No rebound tenderness or guarding. RECTAL: The patient refused. EXTREMITIES: Without significant edema, clubbing or cyanosis. NEUROLOGIC: No reported new neurological deficits, sensory or motor. IMPRESSION: 1. Intermittent partial bowel obstruction, partial. 2. Reexacerbation of peptic ulcer disease. 3. Anemia secondary to above. 4. Known history of bronchial asthma with severe anxiety syndrome and major depression. 5. Known history of hypertension with seizure disorder. 6. Chronic pancreatitis by history. 7. Urine retention by recent history, followed by urology senior compensation consultant. 8. History arthritis by history. 9. Known history of hyperlipidemia, status post cholecystectomy and appendectomy. SUGGESTION: 1. Continue current management. 2. The patient may need a small bowel follow through. That to be scheduled with the radiology depar tment. 3. Further recommendation to follow. No need for further aggressive GI workup in the meantime. Flo Pena MD cc: 14 TT: 12/12/2016 12:20:40 Confirmation # [id number] Dictation # [id number] rn
[2016-12-12] MEDS ORDERED: Iohexol 240 (50 ml) PO ONE (14:45)
[2016-12-12] MEDS: Latanoprost 2.5 ml Opht Soln OU SCH (21:07)
[2016-12-13 01:17] VITALS: RESP 20
[2016-12-13] MEDS: HYDROmorphone 1 mg/ml ISec IVP PRN ×5 (05:14→22:18)
[2016-12-13] MEDS: Piperacillin/Tazobact 3.375 GM in Sodium Chloride 0.9% 100 ML IVPB SCH ×3 (05:21→21:23)
[2016-12-13] MEDS: DiphenhydrAMINE 50 mg/ml Inj IVP PRN ×3 (05:47→22:26)
[2016-12-13 06:45] LABS: BASO % 0.4 % (0.0-2.0); EOS # 0.2 K/uL (0.0-0.7); EOS % 2.5 % (0.0-4.0); HEMATOCRIT 33.6 % (34.0-47.0); LYMPH # 1.8 K/uL (1.0-4.3); LYMPH % 23.2 % (20.0-40.0); MEAN CELL VOLUME 78.5 fL (81.0-99.0); MEAN CORPUSCULAR HEMOGLOBIN 24.7 pg (27.0-31.0); MEAN CORPUSCULAR HGB CONC 31.5 g/dL (33.0-37.0); MEAN PLATELET VOLUME 8.5 fL (7.2-11.7); MONO # 0.5 K/uL (0.0-0.8); MONO % 5.8 % (0.0-10.0); NRBC % 0.1 % (0.0-2.0); RED CELL DISTRIBUTION WIDTH 16.2 % (11.5-14.5); WHITE BLOOD COUNT 7.7 K/uL (4.8-10.8)
[2016-12-13 06:53] LABS: CHLORIDE 104 mmol/L (98-107); SODIUM 143 mmol/L (132-148)
[2016-12-13 06:54] LABS: POTASSIUM 3.2 mmol/L (3.6-5.2)
[2016-12-13 06:56] LABS: ALKALINE PHOSPHATASE 124 U/L (38-126); ALT/SGPT 15 U/L (9-52); AST/SGOT 14 U/L (14-36); BILIRUBIN,TOTAL 0.5 mg/dL (0.2-1.3); BLOOD UREA NITROGEN 4 mg/dL (7-17); CARBON DIOXIDE 30 mmol/L (22-30); GFR AFRICAN-AMERICAN > 60; GLUCOSE,RANDOM 78 mg/dL (65-105); PHOSPHOROUS 3.4 mg/dL (2.5-4.5); TOTAL PROTEIN 6.9 g/dL (6.3-8.3)
[2016-12-13 06:57] LABS: MAGNESIUM 1.7 mg/dL (1.6-2.3)
[2016-12-13] MEDS: Fluticasone-Salmeterol 250-50mcg Diskus IH SCH ×3 (08:00→20:29)
--- NOTE | 2016-12-13 09:40 | PN ---
DATE: 12/13/2016 LOCATION: 352, bed B. This is a 56-year-old female seen and examined in rounds without significant clinical changes with in termittent periods of abdominal pain. Most recent lab and radiology study results, current and previ ous medication list, current and the previous medical events seen, and the patient had repeat abdomin al and pelvic CT scan yesterday. Official report is still pending. The most recent lab and radiolog y study results, current and previous medication list were reviewed. Today's labs showed low but sta ble hemoglobin of 10.6 with hematocrit 33.6 with low indices highly suggestive of hypochromic microcy tic anemia with low potassium 3.2, low BUN 4.0 with low calcium 8.0 and low albumin 3.4. No reported active bleeding, but period of nausea and dyspepsia. PHYSICAL EXAMINATION: GENERAL: A 56-year-old female. VITAL SIGNS: Afebrile with pulse of 66, respiratory rate 20-22, blood pressure 134/76. HEENT: Showed pale, dry mucous membranes. Nonicteric sclerae. LUNGS: Few scattered crepitation with decreased air entry at bases. HEART: Positive S1 and S2. ABDOMEN: With mild distention and generalized tenderness. Bowel sounds are excessively hypoactive. No mass or organomegaly. EXTREMITIES: Without edema, clubbing or cyanosis. NEUROLOGIC: No reported new neurological deficits, sensory or motor. IMPRESSION: 1. Intermittent partial bowel obstruction, believed to be secondary to adhesions from previous surge ry. 2. Peptic ulcer disease with gastritis and duodenitis. Pathology report negative for Helicobacter p ylori. 3. Reported history of chronic pancreatitis, hypertension, chronic obstructive pulmonary disease, se quang anxiety syndrome as well as seizure disorders. 4. Anemia secondary to above. 5. Electrolyte imbalance due to the patient's recurrent episodes of nausea and vomiting in the past. 6. Known history of osteoarthritis. 7. Recurrent episodes of urinary tract infection with urinary retention by recent history, followed up by the urology wellness consultant. 8. Known history of hyperlipidemia, status post appendectomy and cholecystectomy. SUGGESTION: 1. Peripheral hyperalimentation. 2. Surgical re-evaluation. 3. Upper GI with small bowel follow through. 4. Increase Reglan IV. Flo Pena MD cc: 14 TT: 12/13/2016 09:40:00 Confirmation # [id number] Dictation # [id number] cn
[2016-12-13] MEDS: Sucralfate 1 gm/10 ml Oral Susp UD PO SCH ×3 (09:46→17:46)
[2016-12-13] MEDS: Multiple Vitamins Tab PO SCH (09:47)
[2016-12-13] MEDS: LIPASE/PROTEASE/AMYLASE 4,200 U ECC PO SCH ×3 (09:47→17:47)
[2016-12-13] MEDS: Fluticasone Nasal 50 mcg/Spray NAS SCH (09:48)
[2016-12-13] MEDS: Dorzolamide 2% Opht Sol 10ml OU SCH ×3 (09:49→17:47)
--- NOTE | 2016-12-13 12:11 | CT ---
PROCEDURE: CT Abdomen and Pelvis without IV contrast. HISTORY: R/O SBO COMPARISON: CT abdomen and pelvis performed 12/04/16 TECHNIQUE: Contiguous axial images of the abdomen and pelvis. Oral contrast was administered. No IV contrast given. Coronal and Sagittal reformats generated and reviewed. Radiation dose: Total exam DLP = 963.55 mGy-cm. This CT exam was performed using one or more of the following dose reduction techniques: Automated exposure control, adjustment of the mA and/or kV according to patient size, and/or use of iterative reconstruction technique. FINDINGS: There is limited evaluation of the solid organs without the administration of IV contrast. LOWER THORAX: Atelectasis or fibrosis at the lung bases. Small region of pleural thickening or fibrosis prominently noted at the right lung base. Right basilar calcified nodules. LIVER: Unremarkable unenhanced appearance. GALLBLADDER AND BILE DUCTS: Cholecystectomy. PANCREAS: Unremarkable unenhanced appearance. SPLEEN: Unremarkable unenhanced appearance. ADRENALS: Unremarkable unenhanced appearance. KIDNEYS AND URETERS: Indeterminate 12 mm hyperdense right renal lesion, possibly proteinaceous hemorrhagic cyst. 2.3 cm probable left renal cyst. No hydronephrosis or obstructing calculus evident. BLADDER: Queen catheter within a decompressed urinary bladder. REPRODUCTIVE: Uterus is present. APPENDIX: No secondary signs of acute appendicitis. BOWEL: The stomach is nondistended. The bowel loops appear within normal limits of caliber without evidence of intestinal obstruction. PERITONEUM: No significant free fluid. No definite free air. LYMPH NODES: No bulky lymphadenopathy identified. VASCULATURE: IVC filter. No aortic aneurysm. BONES: Degenerative changes. OTHER FINDINGS: None. IMPRESSION: Indeterminate 12 mm hyperdense right renal lesion, possibly proteinaceous or hemorrhagic cyst. 2.3 cm probable left renal cyst. Renal ultrasound may be considered for further characterization. Additional findings as above.
--- NOTE | 2016-12-13 12:43 | PN ---
DATE: 12/13/2016 The patient is examined once again in consultation. She is currently on a liquid diet due to persist ent abdominal pain, nausea and vomiting. A CAT scan was done yesterday of the abdomen. It was not r ead; however, by my reading it did not reveal an obstruction. On physical exam, there is slightly le ss tenderness in the left upper quadrant; however, her white blood cell count today is unchanged at 7 .7. Her potassium is somewhat low at 3.2. Otherwise everything within normal limits. IMPRESSION AND PLAN: Due to the fact that she has noted radiographic evidence of a bowel obstruction here, continues to have abdominal pain, nausea and vomiting. Other courses, besides obstruction of these problems, must be investigated. I will defer management from here on in to GI and medicine. Roger Vargas MD cc: [id number] TT: 12/13/2016 12:42:59 Confirmation # [id number] Dictation # [id number] angelita
[2016-12-13] MEDS: Latanoprost 2.5 ml Opht Soln OU SCH (21:22)
[2016-12-14] MEDS: HYDROmorphone 1 mg/ml ISec IVP PRN ×5 (02:31→21:57)
[2016-12-14] MEDS: Piperacillin/Tazobact 3.375 GM in Sodium Chloride 0.9% 100 ML IVPB SCH (05:08)
[2016-12-14] MEDS: DiphenhydrAMINE 50 mg/ml Inj IVP PRN ×2 (06:22→19:10)
[2016-12-14 07:12] LABS: BASO % 0.4 % (0.0-2.0); EOS # 0.2 K/uL (0.0-0.7); EOS % 2.3 % (0.0-4.0); HEMATOCRIT 34.9 % (34.0-47.0); LYMPH # 2.1 K/uL (1.0-4.3); LYMPH % 23.1 % (20.0-40.0); MEAN CELL VOLUME 78.5 fL (81.0-99.0); MEAN CORPUSCULAR HEMOGLOBIN 24.3 pg (27.0-31.0); MEAN PLATELET VOLUME 8.4 fL (7.2-11.7); MONO # 0.4 K/uL (0.0-0.8); MONO % 4.7 % (0.0-10.0); RED CELL DISTRIBUTION WIDTH 16.4 % (11.5-14.5); WHITE BLOOD COUNT 8.9 K/uL (4.8-10.8)
[2016-12-14 07:19] LABS: CHLORIDE 103 mmol/L (98-107)
[2016-12-14 07:20] LABS: SODIUM 143 mmol/L (132-148)
[2016-12-14 07:21] LABS: POTASSIUM 3.2 mmol/L (3.6-5.2)
[2016-12-14 07:22] LABS: GFR AFRICAN-AMERICAN > 60
[2016-12-14 07:23] LABS: ALKALINE PHOSPHATASE 122 U/L (38-126); ALT/SGPT 19 U/L (9-52); AST/SGOT 17 U/L (14-36); BILIRUBIN,TOTAL 0.5 mg/dL (0.2-1.3); BLOOD UREA NITROGEN 4 mg/dL (7-17); CARBON DIOXIDE 29 mmol/L (22-30); GLUCOSE,RANDOM 79 mg/dL (65-105); TOTAL PROTEIN 7.2 g/dL (6.3-8.3)
[2016-12-14 07:24] LABS: CALCIUM 8.3 mg/dl (8.6-10.4); MAGNESIUM 1.8 mg/dL (1.6-2.3); PHOSPHOROUS 3.9 mg/dL (2.5-4.5)
[2016-12-14] MEDS: Fluticasone-Salmeterol 250-50mcg Diskus IH SCH ×2 (08:52→19:45)
[2016-12-14] MEDS: Multiple Vitamins Tab PO SCH (09:40)
[2016-12-14] MEDS: Sucralfate 1 gm/10 ml Oral Susp UD PO SCH ×3 (09:41→17:20)
[2016-12-14] MEDS: LIPASE/PROTEASE/AMYLASE 4,200 U ECC PO SCH ×3 (09:42→17:33)
[2016-12-14] MEDS: Fluticasone Nasal 50 mcg/Spray NAS SCH (09:42)
[2016-12-14] MEDS: Dorzolamide 2% Opht Sol 10ml OU SCH ×3 (09:42→17:34)
--- NOTE | 2016-12-14 10:24 | PN ---
DATE: 12/14/2016 LOCATION: 352, bed B. This is a 56-year-old female, seen and examined in rounds, appeared to be more awake, alert, oriented , without reported recent episode of active bleeding. Nausea reported, but not vomiting with decreas ed dyspepsia. The patient had bowel movement. The most recent lab results as well as current medica tion list, current medical events were reviewed with the staff on the floor. The patient's today hem oglobin is still low 10.8 with low indices, highly suggestive of hypochromic microcytic anemia with l ow potassium 3.2 and low calcium 8.3. The most recently done CAT scan of the abdomen and pelvis showed hyperdense right renal lesion with p ossible hemorrhagic cyst. No evidence or reported small bowel obstruction. PHYSICAL EXAMINATION: GENERAL: A 56-year-old female. VITAL SIGNS: Afebrile with pulse of 64, respiratory rate 20-22, blood pressure 120/76. HEENT: Showed pale, dry mucoid membrane. Nonicteric sclerae. LUNGS: Few scattered crepitation, decreased air entry at bases. HEART: Positive S1 and S2. ABDOMEN: Soft with slight distention and mild generalized tenderness. No mass or organomegaly. No rebound tenderness or guarding. EXTREMITIES: Without significant edema, clubbing or cyanosis. NEUROLOGIC: No reported neurological deficits, sensory or motor. IMPRESSION: 1. Intermittent partial bowel obstruction, most likely secondary to adhesions. 2. Hypochromic, microcytic anemia that is secondary to chronic disease, most likely. 3. Reexacerbation of peptic ulcer disease with duodenitis and gastritis. 4. Hypokalemia with electrolyte imbalance. 5. Known history of osteoarthritis. 6. Past medical history including, but not limited to, hyperlipidemia, seizure disorder, status post cholecystectomy as well as appendectomy with history of chronic pancreatitis, hypertension, chronic obstructive pulmonary disease as well as severe anxiety syndrome. SUGGESTION: 1. Continue current management. 2. Again, the patient will need upper GI with small bowel follow through. Flo Pena MD cc: 14 TT: 12/14/2016 10:24:04 Confirmation # [id number] Dictation # [id number] en
[2016-12-14] MEDS: Piperacillin/Tazobact 3.375 GM in Sodium Chloride 100 ML IVPB SCH ×2 (11:58→19:18)
[2016-12-14] MEDS: Latanoprost 2.5 ml Opht Soln OU SCH (21:52)
[2016-12-15] MEDS: HYDROmorphone 1 mg/ml ISec IVP PRN ×5 (05:49→22:36)
[2016-12-15] MEDS: DiphenhydrAMINE 50 mg/ml Inj IVP PRN ×2 (05:50→14:56)
[2016-12-15] MEDS ORDERED: Piperacillin/Tazobact 3.375 gm 100 ML IVPB SCH (06:00)
[2016-12-15 07:47] LABS: BASO % 0.4 % (0.0-2.0); EOS # 0.2 K/uL (0.0-0.7); EOS % 2.6 % (0.0-4.0); HEMATOCRIT 34.1 % (34.0-47.0); LYMPH # 2.1 K/uL (1.0-4.3); LYMPH % 23.8 % (20.0-40.0); MEAN CELL VOLUME 78.9 fL (81.0-99.0); MEAN CORPUSCULAR HEMOGLOBIN 24.9 pg (27.0-31.0); MEAN CORPUSCULAR HGB CONC 31.5 g/dL (33.0-37.0); MEAN PLATELET VOLUME 8.8 fL (7.2-11.7); MONO # 0.4 K/uL (0.0-0.8); MONO % 4.9 % (0.0-10.0); RED CELL DISTRIBUTION WIDTH 15.9 % (11.5-14.5); WHITE BLOOD COUNT 8.6 K/uL (4.8-10.8)
--- NOTE | 2016-12-15 07:52 | PN ---
DATE: 12/13/2016 The patient getting supportive care. Complaining of abdominal pain. Clear liquids. GI evaluation. Felisa Asif MD cc: [id number] TT: 12/13/2016 09:59:52 Confirmation # [id number] Dictation # [id number] tn
[2016-12-15 07:57] LABS: CHLORIDE 105 mmol/L (98-107); POTASSIUM 3.2 mmol/L (3.6-5.2); SODIUM 145 mmol/L (132-148)
[2016-12-15 07:59] LABS: ALB/GLOB RATIO 1.1 (1.0-2.1); ALKALINE PHOSPHATASE 115 U/L (38-126); ALT/SGPT 17 U/L (9-52); AST/SGOT 19 U/L (14-36); BILIRUBIN,TOTAL 0.5 mg/dL (0.2-1.3); BLOOD UREA NITROGEN 4 mg/dL (7-17); CARBON DIOXIDE 28 mmol/L (22-30); GFR AFRICAN-AMERICAN > 60
[2016-12-15 08:00] LABS: CALCIUM 8.3 mg/dl (8.6-10.4); GLUCOSE,RANDOM 79 mg/dL (65-105); MAGNESIUM 1.9 mg/dL (1.6-2.3); PHOSPHOROUS 3.9 mg/dL (2.5-4.5)
[2016-12-15] MEDS: Fluticasone-Salmeterol 250-50mcg Diskus IH SCH ×2 (08:21→19:16)
[2016-12-15] MEDS ORDERED: Potassium Chloride 20 mEq ER Tab PO ONE ×2 (09:56→11:40)
--- NOTE | 2016-12-15 09:57 | CP.PCM.PN ---
Subjective - Date & Time of Evaluation Date of Evaluation: 12/15/16 Time of Evaluation: 09:00 - Subjective Subjective: Medicine Progress Note- Dr. Ventura's Service: Patient seen and examined at bedside this AM. Patient reports nausea has improved. She has been tolerating liquid diet much better than before. Admits to one episode of emesis overnight. Patient reports she is ready to advance diet. Reports watery diarrhea overnight. She reports having BMs that are loose over the weekend. Objective - Vital Signs/Intake and Output Vital Signs (last 24 hours): Temp Pulse Resp BP Pulse Ox 97.4 F L 67 20 99/51 L 98 12/15/16 09:00 12/15/16 09:00 12/15/16 09:00 12/15/16 09:00 12/15/16 09:00 Intake and Output: 12/15/16 12/15/16 06:59 18:59 Intake Total 1000 Output Total 1200 Balance -200 - Medications Medications: Current Medications Albuterol (Ventolin Hfa 90 Mcg/Actuation (8 G)) 0 puff INH RQ6 PRN PRN Reason: Shortness of Breath Alprazolam (Xanax) 1 mg PO TID [facility] Last Admin: 12/14/16 17:27 Dose: 1 mg Atenolol (Tenormin) 100 mg PO DAILY [facility] Last Admin: 12/14/16 09:44 Dose: 100 mg Baclofen (Lioresal) 10 mg PO QID [facility] Last Admin: 12/14/16 21:53 Dose: 10 mg Diphenhydramine HCl (Benadryl) 25 mg IVP Q8H PRN PRN Reason: Itching / Pruritus Last Admin: 12/15/16 05:50 Dose: 25 mg Dorzolamide HCl (Trusopt) 0 ml OU TID [facility] Last Admin: 12/14/16 17:34 Dose: 1 drop Fluticasone Propionate (Flonase) 1 spr АНДРЕЙ DAILY [facility] Last Admin: 12/14/16 09:42 Dose: 1 spr Hydromorphone HCl (Dilaudid) 1 mg IVP Q4H PRN PRN Reason: Pain, severe (8-10) Last Admin: 12/15/16 05:49 Dose: 1 mg Levetiracetam 750 mg/ Sodium (Chloride) 107.5 mls @ 420 mls/hr IVPB Q12H [facility] Last Admin: 12/15/16 05:28 Dose: 420 mls/hr Piperacillin Sod/Tazobactam Sod (Zosyn 3.375 In Ns 100ml) 100 mls @ 200 mls/hr IVPB Q8 [facility] Last Admin: 12/15/16 05:30 Dose: 200 mls/hr Latanoprost (Xalatan Opht) 0 ml OU HS [facility] Last Admin: 12/14/16 21:52 Dose: 2.5 ml Multivitamins (Hexavitamin) 1 tab PO DAILY [facility] Last Admin: 12/14/16 09:40 Dose: 1 tab Ondansetron HCl (Zofran Inj) 4 mg IVP Q6H PRN PRN Reason: Nausea/Vomiting Last Admin: 12/15/16 05:48 Dose: 4 mg Pantoprazole Sodium (Protonix Inj) 40 mg IVP DAILY [facility] Last Admin: 12/14/16 09:41 Dose: 40 mg Potassium Chloride (K-Dur 20 Meq Er Tab) 40 meq PO ONCE ONE Stop: 12/15/16 09:57 Fluticasone/Salmeterol (Advair Diskus 250/50) 1 puff IH RQ12 [facility] Last Admin: 12/15/16 08:21 Dose: 1 puff Sertraline HCl (Zoloft) 100 mg PO BID [facility] Last Admin: 12/14/16 17:33 Dose: 100 mg Sucralfate (Carafate Oral Susp) 1 gm PO ACTID [facility] Last Admin: 12/14/16 17:20 Dose: 1 gm Zolpidem Tartrate (Ambien) 5 mg PO HS [facility] Last Admin: 12/14/16 21:56 Dose: 5 mg - Labs Labs: 12/15/16 07:27 12/15/16 07:27 PT 11.1 SECONDS (9.7-12.2) 12/02/16 01:17 INR 1.0 12/02/16 01:17 APTT 26 SECONDS (21-34) 12/02/16 01:17 - Constitutional Appears: No Acute Distress - Head Exam Head Exam: NORMAL INSPECTION, NORMOCEPHALIC - Eye Exam Eye Exam: EOMI, Normal appearance - ENT Exam ENT Exam: Mucous Membranes Moist - Neck Exam Neck Exam: Full ROM - Respiratory Exam Respiratory Exam: Clear to Ausculation Bilateral, NORMAL BREATHING PATTERN - Cardiovascular Exam Cardiovascular Exam: REGULAR RHYTHM, +S1, +S2 - GI/Abdominal Exam GI & Abdominal Exam: Soft, Tenderness (epigastric TTP) - Extremities Exam Extremities Exam: Full ROM, Normal Inspection - Back Exam Back Exam: NORMAL INSPECTION - Neurological Exam Neurological Exam: Alert, Awake, Oriented x3 - Psychiatric Exam Psychiatric exam: Normal Affect, Normal Mood - Skin Skin Exam: Normal Color, Warm Assessment and Plan - Assessment and Plan (Free Text) Assessment: (1) Partial small bowel obstruction Assessment & Plan: Patient with multiple abdominal surgeries and adhesions. Consult GI- Dr. Pena- recommends continuing current management and avoiding citrus. EGD done 12/03/16 showed medium sized hiatal hernia, acute gastritis, and erythematous duodenopathy. Pathology - negative for H. Pylori, consistent with gastric antral mucous with reactive gastropathy Consult Surgery- Dr. Sam HENRY D/C 12/10/16. Advance diet to soft [place] today. f/u stool studies Zosyn IVPB- started on 12/02 Dilaudid 1mg IVP Q4h PRN Baclofen 10mg PO QID Zofran 4mg IVP Q6h PRN Abdomen/Pelvis CT w IV contrast- s/p prior SB surgery. Findings consistent with partial small bowel obstruction. 17mm indeterminate lesion arising from upper pole of right kidney. Status: Acute (2) Anemia Assessment & Plan: Stable Hgb 10.8, Hct 34.1 (H/H on admission 11.9/37.3) Patient with microcytic anemia. Normal Iron 37, TIBC 288, ferritin 14.8, %sat 12 stool OB negative Consult GI- Dr. Pena EGD done 12/03/16 showed medium sized hiatal hernia, acute gastritis, and erythematous duodenopathy. As per GI, likely anemia of chronic disease. f/u CBC in the AM Status: Acute (3) Urinary retention Assessment & Plan: Uro consult placed- Dr. Regan- help appreciated Queen in place. D/C Queen today 12/15/[address] Alexandra Regan and void trial started. Bladder SCAN PRN. If patient does not retain, patient may follow up as outpatient. Spoke to Dr. Milagros jj 12/15/16- Dr. Regan will come reevaluate patient. UA 2+ blood and 15 RBC Urine culture negative 17mm indeterminate lesion arising from upper pole of right kidney seen on CT. Status: Acute (4) Asthma Assessment & Plan: Well controlled Continue Advair 25/50mcg 1 puff IH Q12h Continue Albuterol 2 puff INH Q6h PRN Status: Acute (5) Anxiety Assessment & Plan: Controlled Dr. Thompson Consulted form Psych- signed off. Ativan PRN Status: Acute (6) Major depression Assessment & Plan: Controlled Continue Zoloft 100mg PO BID- signed off. Status: Chronic (7) Seizure disorder Assessment & Plan: No seizures since admission Vimpat 200mg PO BID is unavailable. Consult Neuro- Dr. Ben Tamayo 750mg IVPB Q12h As per Dr. Araiza, if any seizures occur, increase dose to 1000 mg IVPB Q12H Status: Chronic (8) Chronic pancreatitis Assessment & Plan: Zenpep 25,000 PO TID Status: Acute (9) Hypokalemia Assessment & Plan: K+ 3.2 again today. 40mEq Kdur PO once Continue to monitor (10) Insomnia Assessment & Plan: Ambien 10mg PO HS Status: Chronic (11) HTN (hypertension) Assessment & Plan: Atenolol 100mg PO Daily Status: Acute (12) Prophylactic measure Assessment & Plan: Protonix 40mg IVP Daily SCDs Patient does not have IV access due to poor veins PICC/mid line ordered Status: Acute All management as per Dr. Ventura.
[2016-12-15] MEDS: Dorzolamide 2% Opht Sol 10ml OU SCH ×3 (10:39→17:52)
[2016-12-15] MEDS: Sucralfate 1 gm/10 ml Oral Susp UD PO SCH ×3 (10:41→17:01)
[2016-12-15] MEDS: Multiple Vitamins Tab PO SCH (10:41)
[2016-12-15] MEDS: Fluticasone Nasal 50 mcg/Spray NAS SCH (11:15)
[2016-12-15] MEDS: Sodium Chloride 0.9% 1,000 ML IV SCH ×2 (11:17→21:27)
[2016-12-15] MEDS: LIPASE/PROTEASE/AMYLASE 4,200 U ECC PO SCH ×3 (11:57→17:52)
--- NOTE | 2016-12-15 13:11 | PN ---
DATE: 12/15/2016 LOCATION: 352, bed B. This is a 56-year-old female, seen and examined in rounds without significant clinical changes with i ntermittent periods of abdominal pain, but no reported active bleeding. The most recent lab and radi ology study results, current and previous medication lists, current and previous medical events and the patient still has low hemoglobin with low indices, highly suggestive of hypochromic microcyt ic anemia. No evidence of active bleeding. Latest potassium 3.2 with low calcium 8.4 with low BUN, but normal creatinine. PHYSICAL EXAMINATION: GENERAL: A 56-year-old female, appeared to be awake, alert, oriented, complaining of intermittent pe riods of abdominal pain. VITAL SIGNS: Afebrile with heart rate of 64, respiratory rate 20-22 with blood pressure 110/54. HEENT: Showed pale, dry oral mucoid membrane. Nonicteric sclerae. LUNGS: Few scattered crepitation, decreased air entry at bases. HEART: Positive S1 and S2. ABDOMEN: Soft. Bowel sounds are present, but hypoactive with mild abdominal distention and generali zed tenderness. No mass or organomegaly. EXTREMITIES: Without significant edema, clubbing or cyanosis. NEUROLOGIC: No reported neurological deficits, sensory or motor, new. IMPRESSION: 1. Intermittent bowel obstruction, believed to be secondary to adhesions. 2. Reexacerbation of peptic ulcer disease. 3. Hypochromic, microcytic anemia, most likely secondary to chronic disease. 4. Electrolyte imbalance with hypokalemia. 5. Known history of, but not limited to hyperlipidemia, seizure disorder, status post appendectomy a nd cholecystectomy. 6. Known history of chronic pancreatitis, hypertension as well as chronic obstructive pulmonary dise ase and severe anxiety syndrome. SUGGESTION: 1. Continue current management. 2. Oral intake as tolerated. Flo Pena MD cc: 14 TT: 12/15/2016 13:10:26 Confirmation # [id number] Dictation # [id number] en
[2016-12-15] MEDS: Piperacillin/Tazobact 3.375 GM in Sodium Chloride 0.9% 100 ML IVPB SCH ×2 (14:55→22:30)
[2016-12-15] MEDS: Latanoprost 2.5 ml Opht Soln OU SCH (21:21)
[2016-12-16] MEDS: DiphenhydrAMINE 50 mg/ml Inj IVP PRN ×3 (03:10→19:27)
[2016-12-16] MEDS: Piperacillin/Tazobact 3.375 GM in Sodium Chloride 0.9% 100 ML IVPB SCH ×3 (05:39→22:00)
[2016-12-16 07:07] LABS: BASO % 0.3 % (0.0-2.0); EOS # 0.3 K/uL (0.0-0.7); EOS % 2.7 % (0.0-4.0); LYMPH # 2.1 K/uL (1.0-4.3); LYMPH % 22.7 % (20.0-40.0); MEAN CELL VOLUME 77.8 fL (81.0-99.0); MEAN CORPUSCULAR HEMOGLOBIN 24.9 pg (27.0-31.0); MEAN PLATELET VOLUME 8.7 fL (7.2-11.7); MONO # 0.4 K/uL (0.0-0.8); MONO % 4.8 % (0.0-10.0); NRBC % 0.1 % (0.0-2.0); RED CELL DISTRIBUTION WIDTH 16.2 % (11.5-14.5); WHITE BLOOD COUNT 9.3 K/uL (4.8-10.8)
[2016-12-16 07:16] LABS: CHLORIDE 107 mmol/L (98-107); POTASSIUM 3.2 mmol/L (3.6-5.2); SODIUM 144 mmol/L (132-148)
[2016-12-16 07:18] LABS: ALKALINE PHOSPHATASE 116 U/L (38-126); AST/SGOT 16 U/L (14-36); BILIRUBIN,TOTAL 0.5 mg/dL (0.2-1.3); CARBON DIOXIDE 26 mmol/L (22-30); GFR AFRICAN-AMERICAN > 60; TOTAL PROTEIN 7.1 g/dL (6.3-8.3)
[2016-12-16 07:19] LABS: ALT/SGPT 16 U/L (9-52); BLOOD UREA NITROGEN 4 mg/dL (7-17); CALCIUM 8.2 mg/dl (8.6-10.4); GLUCOSE,RANDOM 82 mg/dL (65-105); MAGNESIUM 1.7 mg/dL (1.6-2.3); PHOSPHOROUS 3.1 mg/dL (2.5-4.5)
[2016-12-16] MEDS: Sucralfate 1 gm/10 ml Oral Susp UD PO SCH ×3 (08:04→16:30)
[2016-12-16] MEDS: Fluticasone-Salmeterol 250-50mcg Diskus IH SCH ×2 (08:37→20:33)
--- NOTE | 2016-12-16 08:45 | PN ---
DATE: 12/16/2016 LOCATION: 352, bed B. This is a 56-year-old female, seen and examined in rounds without significant clinical changes or int ermittent periods of abdominal pain with a complaint of generalized weakness and malaise. No reporte d active bleeding. The entire chart is reviewed including, but not limited to, most recent lab and r adiology study results, current and previous medication lists, current and previous medical events an d case discussed at length with the medical nursing staff on the floor. Today's labs showed low hemoglobin of 10.9 with low indices and again low potassium 3.2, low calcium 8.2. PHYSICAL EXAMINATION: GENERAL: A 56-year-old female, awake, alert, oriented, complaining of abdominal pain. VITAL SIGNS: Afebrile with pulse of 64, respiratory rate 20-22, blood pressure 140/64. HEENT: Showed pale, dry oral mucoid membrane. Nonicteric sclerae. LUNGS: Few scattered crepitation, decreased air entry at bases. HEART: Positive S1 and S2. ABDOMEN: Soft. Bowel sounds are present with mild distention and hypoactive bowel sounds. No mass or organomegaly. EXTREMITIES: Without significant clubbing, cyanosis or edematous changes. NEUROLOGIC: No reported new neurologic deficits, sensory or motor. IMPRESSION: 1. Anemia. 2. Intermittent partial bowel obstruction, most likely secondary to adhesions. 3. Peptic ulcer disease. 4. Hypochromic, microcytic anemia, secondary to above. 5. Electrolyte imbalance with hypokalemia, hypocalcemia. 6. Known history of, but not limited to, seizure disorder, hyperlipidemia, hypertension, chronic obs tructive pulmonary disease as well as chronic pancreatitis. 7. Known history of severe anxiety syndrome. SUGGESTION: 1. Continue current management. 2. The patient may need MRI of the abdomen and the pelvis if the symptoms persist. 3. Guaiac all the stool daily x 3. Flo Pena MD cc: 14 TT: 12/16/2016 08:44:11 Confirmation # [id number] Dictation # [id number] en
[2016-12-16] MEDS ORDERED: Potassium Chloride 20 mEq ER Tab PO SCH (10:00)
[2016-12-16] MEDS: Multiple Vitamins Tab PO SCH (10:58)
[2016-12-16] MEDS: LIPASE/PROTEASE/AMYLASE 4,200 U ECC PO SCH ×3 (10:58→17:53)
[2016-12-16] MEDS: Fluticasone Nasal 50 mcg/Spray NAS SCH (10:59)
[2016-12-16] MEDS: Dorzolamide 2% Opht Sol 10ml OU SCH ×3 (11:00→17:52)
--- NOTE | 2016-12-16 11:31 | CP.PCM.PN ---
Subjective - Date & Time of Evaluation Date of Evaluation: 12/16/16 Time of Evaluation: 10:00 - Subjective Subjective: Medicine Progress Note Patient seen and examined. Patient's diet was increased last night but the patient states that she was unable to tolerate it because she became nauseas. The patient denies vomiting and states that her abdominal pain has slightly improved but is still present. The patient had her michael removed yesterday and has been able to void urine without difficulty. She does complains of dysuria that has been chronic but denies hematuria. Denies fever, chills, nausea, diarrhea, chest pain, shortness of breath, and dizziness. Objective - Vital Signs/Intake and Output Vital Signs (last 24 hours): Temp Pulse Resp BP Pulse Ox 98.2 F 63 20 138/67 95 12/16/16 07:40 12/16/16 07:40 12/16/16 07:40 12/16/16 07:40 12/16/16 07:40 Intake and Output: 12/16/16 12/16/16 06:59 18:59 Intake Total 1100 Output Total 1500 Balance -400 - Medications Medications: Current Medications Albuterol (Ventolin Hfa 90 Mcg/Actuation (8 G)) 0 puff INH RQ6 PRN PRN Reason: Shortness of Breath Alprazolam (Xanax) 1 mg PO TID PRN PRN Reason: Anxiety Last Admin: 12/16/16 10:58 Dose: 1 mg Atenolol (Tenormin) 100 mg PO DAILY [facility] Last Admin: 12/16/16 10:58 Dose: 100 mg Baclofen (Lioresal) 10 mg PO QID [facility] Last Admin: 12/16/16 10:59 Dose: 10 mg Diphenhydramine HCl (Benadryl) 25 mg IVP Q8H PRN PRN Reason: Itching / Pruritus Last Admin: 12/16/16 03:10 Dose: 25 mg Dorzolamide HCl (Trusopt) 0 ml OU TID [facility] Last Admin: 12/16/16 11:00 Dose: 1 drop Fluticasone Propionate (Flonase) 1 spr АНДРЕЙ DAILY [facility] Last Admin: 12/16/16 10:59 Dose: 1 spr Hydromorphone HCl (Dilaudid) 1 mg IVP Q4H PRN PRN Reason: Pain, severe (8-10) Last Admin: 12/16/16 07:25 Dose: 1 mg Levetiracetam 750 mg/ Sodium (Chloride) 107.5 mls @ 420 mls/hr IVPB Q12H [facility] Last Admin: 12/16/16 04:40 Dose: 420 mls/hr Sodium Chloride (Sodium Chloride 0.9%) 1,000 mls @ 100 mls/hr IV .Q10H [facility] Last Admin: 12/15/16 21:27 Dose: 100 mls/hr Piperacillin Sod/Tazobactam (Sod 3.375 gm/ Sodium Chloride) 100 mls @ 200 mls/ hr IVPB Q8 [facility] Last Admin: 12/16/16 05:39 Dose: 200 mls/hr Potassium Chloride (Potassium Chloride 20 Meq/100 Ml) 20 meq in 100 mls @ 50 mls/hr IVPB Q2H [facility] Stop: 12/16/16 13:29 Last Admin: 12/16/16 10:57 Dose: 50 mls/hr Latanoprost (Xalatan Opht) 0 ml OU HS [facility] Last Admin: 12/15/16 21:21 Dose: 2.5 ml Multivitamins (Hexavitamin) 1 tab PO DAILY [facility] Last Admin: 12/16/16 10:58 Dose: 1 tab Ondansetron HCl (Zofran Inj) 4 mg IVP Q6H PRN PRN Reason: Nausea/Vomiting Last Admin: 12/15/16 14:53 Dose: 4 mg Pantoprazole Sodium (Protonix Inj) 40 mg IVP DAILY [facility] Last Admin: 12/16/16 10:57 Dose: 40 mg Fluticasone/Salmeterol (Advair Diskus 250/50) 1 puff IH RQ12 [facility] Last Admin: 12/16/16 08:37 Dose: 1 puff Sertraline HCl (Zoloft) 100 mg PO BID [facility] Last Admin: 12/16/16 10:58 Dose: 100 mg Sucralfate (Carafate Oral Susp) 1 gm PO ACTID [facility] Last Admin: 12/16/16 11:05 Dose: 1 gm Zolpidem Tartrate (Ambien) 5 mg PO HS [facility] Last Admin: 12/15/16 21:19 Dose: 5 mg - Labs Labs: 12/16/16 06:56 12/16/16 06:56 PT 11.1 SECONDS (9.7-12.2) 12/02/16 01:17 INR 1.0 12/02/16 01:17 APTT 26 SECONDS (21-34) 12/02/16 01:17 - Constitutional Appears: Non-toxic, No Acute Distress - Head Exam Head Exam: ATRAUMATIC, NORMOCEPHALIC - Eye Exam Eye Exam: EOMI, Normal appearance - ENT Exam ENT Exam: Mucous Membranes Moist - Neck Exam Neck Exam: Normal Inspection - Respiratory Exam Respiratory Exam: Clear to Ausculation Bilateral, NORMAL BREATHING PATTERN. absent: Rhonchi, Wheezes, Respiratory Distress - Cardiovascular Exam Cardiovascular Exam: REGULAR RHYTHM, +S1, +S2 - GI/Abdominal Exam GI & Abdominal Exam: Soft, Tenderness (mild ttp ), Normal Bowel Sounds. absent : Distended, Firm, Guarding, Rigid - Extremities Exam Extremities Exam: Normal Inspection - Neurological Exam Neurological Exam: Alert, Awake, Oriented x3 - Psychiatric Exam Psychiatric exam: Normal Affect, Normal Mood - Skin Skin Exam: Dry, Intact, Normal Color, Warm Assessment and Plan - Assessment and Plan (Free Text) Assessment: (1) Partial small bowel obstruction Assessment & Plan: Patient with multiple abdominal surgeries and adhesions. Consult GI- Dr. Pena- recommends continuing current management and avoiding citrus. Per Dr Pena the patient may require MRI of abdomen if symptoms persist. Recommends guiac stools daily. EGD done 12/03/16 showed medium sized hiatal hernia, acute gastritis, and erythematous duodenopathy. Pathology - negative for H. Pylori, consistent with gastric antral mucous with reactive gastropathy Consult Surgery- Dr. Vargas NGT D/C 12/10/16. Advance diet to soft [place] today. f/u stool studies Zosyn IVPB- started on 12/02 Dilaudid 1mg IVP Q4h PRN Baclofen 10mg PO QID Zofran 4mg IVP Q6h PRN Abdomen/Pelvis CT w IV contrast- s/p prior SB surgery. Findings consistent with partial small bowel obstruction. 17mm indeterminate lesion arising from upper pole of right kidney. Status: Acute (2) Anemia Assessment & Plan: Stable Hgb 10.9 Patient with microcytic anemia. Normal Iron 37, TIBC 288, ferritin 14.8, %sat 12 stool OB negative Consult GI- Dr. Pena- recommends daily stool guaic checks EGD done 12/03/16 showed medium sized hiatal hernia, acute gastritis, and erythematous duodenopathy. As per GI, likely anemia of chronic disease. f/u CBC in the AM Status: Acute (3) Urinary retention Assessment & Plan: Uro consult placed- Dr. Regan- help appreciated D/C Michael on 12/15/[address] Alexandra Regan and void trial started. The patient was able to void x3. Spoke to Dr. Milagros Regan 12/15/16- Dr. Regan will come reevaluate patient. UA 2+ blood and 15 RBC Urine culture negative 17mm indeterminate lesion arising from upper pole of right kidney seen on CT. Status: Acute (4) Asthma Assessment & Plan: Well controlled Continue Advair 25/50mcg 1 puff IH Q12h Continue Albuterol 2 puff INH Q6h PRN Status: Acute (5) Anxiety Assessment & Plan: Controlled Dr. Thompson Consulted form Psych- signed off. Ativan PRN Status: Acute (6) Major depression Assessment & Plan: Controlled Continue Zoloft 100mg PO BID- signed off. Status: Chronic (7) Seizure disorder Assessment & Plan: No seizures since admission Vimpat 200mg PO BID is unavailable. Consult Neuro- Dr. Ben Tamayo 750mg IVPB Q12h As per Dr. Araiza, if any seizures occur, increase dose to 1000 mg IVPB Q12H Status: Chronic (8) Chronic pancreatitis Assessment & Plan: Zenpep 25,000 PO TID Status: Acute (9) Hypokalemia Assessment & Plan: K+ 3.2 again today. 40mEq Kdur PO once Continue to monitor (10) Insomnia Assessment & Plan: Ambien 10mg PO HS Status: Chronic (11) HTN (hypertension) Assessment & Plan: Atenolol 100mg PO Daily Status: Acute (12) Prophylactic measure Assessment & Plan: Protonix 40mg IVP Daily SCDs Patient does not have IV access due to poor veins PICC/mid line ordered Status: Acute All management as per Dr. Ventura.
[2016-12-16] MEDS: Sodium Chloride 0.9% 1,000 ML IV SCH ×2 (11:34→16:00)
[2016-12-16] MEDS: Latanoprost 2.5 ml Opht Soln OU SCH (22:21)
[2016-12-17] MEDS: Sodium Chloride 0.9% 1,000 ML IV SCH ×2 (03:00→12:35)
[2016-12-17] MEDS: DiphenhydrAMINE 50 mg/ml Inj IVP PRN ×2 (05:12→12:13)
[2016-12-17] MEDS: Piperacillin/Tazobact 3.375 GM in Sodium Chloride 0.9% 100 ML IVPB SCH ×2 (06:09→13:28)
[2016-12-17] MEDS: Sucralfate 1 gm/10 ml Oral Susp UD PO SCH ×3 (06:38→16:39)
[2016-12-17 07:19] LABS: BASO % 0.4 % (0.0-2.0); EOS # 0.3 K/uL (0.0-0.7); EOS % 2.9 % (0.0-4.0); MONO # 0.5 K/uL (0.0-0.8); RED CELL DISTRIBUTION WIDTH 16.1 % (11.5-14.5)
[2016-12-17 07:41] LABS: CHLORIDE 108 mmol/L (98-107); POTASSIUM 3.3 mmol/L (3.6-5.2); SODIUM 145 mmol/L (132-148)
[2016-12-17 07:43] LABS: ALKALINE PHOSPHATASE 105 U/L (38-126); AST/SGOT 15 U/L (14-36); BILIRUBIN,TOTAL 0.5 mg/dL (0.2-1.3); CARBON DIOXIDE 27 mmol/L (22-30); GFR AFRICAN-AMERICAN > 60
[2016-12-17 07:44] LABS: ALT/SGPT 18 U/L (9-52); BLOOD UREA NITROGEN 6 mg/dL (7-17); CALCIUM 8.2 mg/dl (8.6-10.4); GLUCOSE,RANDOM 81 mg/dL (65-105); MAGNESIUM 1.6 mg/dL (1.6-2.3); PHOSPHOROUS 3.5 mg/dL (2.5-4.5)
[2016-12-17 07:46] LABS: LYMPH % 22.4 % (20.0-40.0); MEAN CELL VOLUME 78.5 fL (81.0-99.0); MEAN CORPUSCULAR HGB CONC 31.8 g/dL (33.0-37.0); MEAN PLATELET VOLUME 8.8 fL (7.2-11.7); MONO % 5.2 % (0.0-10.0); WHITE BLOOD COUNT 8.9 K/uL (4.8-10.8)
[2016-12-17] MEDS: Fluticasone-Salmeterol 250-50mcg Diskus IH SCH (07:56)
--- NOTE | 2016-12-17 09:09 | PCM.URO ---
Urology Progress Note - Objective Lab Results Last 24 Hours: Laboratory Results - last 24 hr 12/15/16 12/17/16 12/17/16 13:17 07:05 07:05 WBC 8.9 RBC 4.20 Hgb 10.5 L Hct 33.0 L MCV 78.5 L MCH 25.0 L MCHC 31.8 L RDW 16.1 H Plt Count 234 MPV 8.8 Neut % (Auto) 69.1 Lymph % (Auto) 22.4 Mcdowell % (Auto) 5.2 Eos % (Auto) 2.9 Baso % (Auto) 0.4 Neut # 6.1 Lymph # 2.0 Mcdowell # 0.5 Eos # 0.3 Baso # 0.0 Sodium 145 Potassium 3.3 L Chloride 108 H Carbon Dioxide 27 Anion Gap 13 BUN 6 L Creatinine 1.0 Est GFR ( Amer) > 60 Est GFR (Non-Af Amer) 57 Random Glucose 81 Calcium 8.2 L Phosphorus 3.5 Magnesium 1.6 Total Bilirubin 0.5 AST 15 ALT 18 Alkaline Phosphatase 105 Total Protein 7.0 Albumin 3.5 Globulin 3.4 Albumin/Globulin Ratio 1.0 Stool Leukocytes, Qual Negative Intake & Output: Intake & Output 12/16/16 12/17/16 12/17/16 18:59 06:59 18:59 Intake Total 480 1100 1050 Output Total 400 Balance 80 1100 1050 Intake: Intake, IV Amount 800 800 Right Forearm 800 800 Oral 480 300 250 Output: Urine 400 Urine, Voided 400 Other: # Voids Urine, Voided 3 2 # Bowel Movements 2 1 Vital Signs: Vital Signs - 24 hr 12/16/16 12/17/16 12/17/16 16:00 00:00 07:20 Temperature 98.4 F 98.1 F 98.1 F Pulse Rate 62 63 74 Respiratory 20 20 20 Rate Blood Pressure 136/74 165/76 H 155/78 H O2 Sat by Pulse 99 100 100 Oximetry
[2016-12-17] MEDS: Multiple Vitamins Tab PO SCH (09:10)
[2016-12-17] MEDS: LIPASE/PROTEASE/AMYLASE 4,200 U ECC PO SCH ×2 (09:26→13:10)
--- NOTE | 2016-12-17 11:05 | CP.PCM.PN ---
Subjective - Date & Time of Evaluation Date of Evaluation: 12/17/16 Time of Evaluation: 09:00 - Subjective Subjective: Medicine Progress Note Patient seen and examined. Patient states that she is feeling better today. She has been tolerating her diet but still complains of abdominal pain. Denies fever, nausea, and vomiting. The patient is voiding urine without difficulty. She wishes to go to [facility]. Discharge planning today. Objective - Vital Signs/Intake and Output Vital Signs (last 24 hours): Temp Pulse Resp BP Pulse Ox 98.1 F 74 20 155/78 H 100 12/17/16 07:20 12/17/16 07:20 12/17/16 07:20 12/17/16 07:20 12/17/16 07:20 Intake and Output: 12/17/16 12/17/16 06:59 18:59 Intake Total 1100 1350 Balance 1100 1350 - Medications Medications: Current Medications Albuterol (Ventolin Hfa 90 Mcg/Actuation (8 G)) 0 puff INH RQ6 PRN PRN Reason: Shortness of Breath Alprazolam (Xanax) 1 mg PO TID PRN PRN Reason: Anxiety Last Admin: 12/16/16 10:58 Dose: 1 mg Atenolol (Tenormin) 100 mg PO DAILY [facility] Last Admin: 12/17/16 09:10 Dose: 100 mg Baclofen (Lioresal) 10 mg PO QID [facility] Last Admin: 12/17/16 09:26 Dose: 10 mg Diphenhydramine HCl (Benadryl) 25 mg IVP Q8H PRN PRN Reason: Itching / Pruritus Last Admin: 12/17/16 05:12 Dose: 25 mg Dorzolamide HCl (Trusopt) 0 ml OU TID [facility] Last Admin: 12/16/16 17:52 Dose: 1 drop Fluticasone Propionate (Flonase) 1 spr АНДРЕЙ DAILY [facility] Last Admin: 12/16/16 10:59 Dose: 1 spr Hydromorphone HCl (Dilaudid) 1 mg IVP Q4H PRN PRN Reason: Pain, severe (8-10) Last Admin: 12/17/16 09:11 Dose: 1 mg Levetiracetam 750 mg/ Sodium (Chloride) 107.5 mls @ 420 mls/hr IVPB Q12H [facility] Last Admin: 12/17/16 05:12 Dose: 420 mls/hr Sodium Chloride (Sodium Chloride 0.9%) 1,000 mls @ 100 mls/hr IV .Q10H [facility] Last Admin: 12/17/16 03:00 Dose: 100 mls/hr Piperacillin Sod/Tazobactam (Sod 3.375 gm/ Sodium Chloride) 100 mls @ 200 mls/ hr IVPB Q8 [facility] Last Admin: 12/17/16 06:09 Dose: 200 mls/hr Latanoprost (Xalatan Opht) 0 ml OU HS [facility] Last Admin: 12/16/16 22:21 Dose: 2.5 ml Multivitamins (Hexavitamin) 1 tab PO DAILY [facility] Last Admin: 12/17/16 09:10 Dose: 1 tab Ondansetron HCl (Zofran Inj) 4 mg IVP Q6H PRN PRN Reason: Nausea/Vomiting Last Admin: 12/17/16 09:12 Dose: 4 mg Pantoprazole Sodium (Protonix Inj) 40 mg IVP DAILY [facility] Last Admin: 12/17/16 09:10 Dose: 40 mg Potassium Chloride (K-Dur 20 Meq Er Tab) 40 meq PO ONCE ONE Stop: 12/18/16 10:47 Fluticasone/Salmeterol (Advair Diskus 250/50) 1 puff IH RQ12 [facility] Last Admin: 12/17/16 07:56 Dose: 1 puff Sertraline HCl (Zoloft) 100 mg PO BID [facility] Last Admin: 12/17/16 09:25 Dose: 100 mg Sucralfate (Carafate Oral Susp) 1 gm PO ACTID [facility] Last Admin: 12/17/16 06:38 Dose: 1 gm Zolpidem Tartrate (Ambien) 5 mg PO HS [facility] Last Admin: 12/16/16 22:20 Dose: 5 mg - Labs Labs: 12/17/16 07:05 12/17/16 07:05 PT 11.1 SECONDS (9.7-12.2) 12/02/16 01:17 INR 1.0 12/02/16 01:17 APTT 26 SECONDS (21-34) 12/02/16 01:17 - Additional Findings Additional findings: - Constitutional Appears: Non-toxic, No Acute Distress - Head Exam Head Exam: ATRAUMATIC, NORMOCEPHALIC - Eye Exam Eye Exam: EOMI, Normal appearance - ENT Exam ENT Exam: Mucous Membranes Moist - Neck Exam Neck Exam: Normal Inspection - Respiratory Exam Respiratory Exam: Clear to Ausculation Bilateral, NORMAL BREATHING PATTERN. absent: Rhonchi, Wheezes, Respiratory Distress - Cardiovascular Exam Cardiovascular Exam: REGULAR RHYTHM, +S1, +S2 - GI/Abdominal Exam GI & Abdominal Exam: Soft, Tenderness (mild ttp ), Normal Bowel Sounds. absent : Distended, Firm, Guarding, Rigid - Extremities Exam Extremities Exam: Normal Inspection - Neurological Exam Neurological Exam: Alert, Awake, Oriented x3 - Psychiatric Exam Psychiatric exam: Normal Affect, Normal Mood - Skin Skin Exam: Dry, Intact, Normal Color, Warm Assessment and Plan - Assessment and Plan (Free Text) Assessment: (1) Partial small bowel obstruction Assessment & Plan: Patient with multiple abdominal surgeries and adhesions. Symptoms resolving. Patient tolerating diet. Consult GI- Dr. Pena- recommends continuing current management and avoiding citrus. Per Dr Pena the patient may require MRI of abdomen if symptoms persist. Recommends guiac stools daily. EGD done 12/03/16 showed medium sized hiatal hernia, acute gastritis, and erythematous duodenopathy. Pathology - negative for H. Pylori, consistent with gastric antral mucous with reactive gastropathy Consult Surgery- Dr. Sam HENRY D/C 12/10/16. Advance diet to soft [place] today. f/u stool studies Zosyn IVPB- started on 12/02- DC Dilaudid 1mg IVP Q4h PRN Baclofen 10mg PO QID Zofran 4mg IVP Q6h PRN Abdomen/Pelvis CT w IV contrast- s/p prior SB surgery. Findings consistent with partial small bowel obstruction. 17mm indeterminate lesion arising from upper pole of right kidney. Status: Acute (2) Anemia Assessment & Plan: Stable Patient with microcytic anemia. Normal Iron 37, TIBC 288, ferritin 14.8, %sat 12 stool OB negative Consult GI- Dr. Pena- recommends daily stool guaic checks EGD done 12/03/16 showed medium sized hiatal hernia, acute gastritis, and erythematous duodenopathy. As per GI, likely anemia of chronic disease. Status: Acute (3) Urinary retention Assessment & Plan: Uro consult placed- Dr. Regan- help appreciated D/C [place] on 12/15/[address] Alexandra Regan and void trial started. The patient was able to void x3. Spoke to Dr. Milagros Regan 12/15/16- Dr. Regan will come reevaluate patient. UA 2+ blood and 15 RBC Urine culture negative 17mm indeterminate lesion arising from upper pole of right kidney seen on CT. Status: Acute (4) Asthma Assessment & Plan: Well controlled Continue Advair 25/50mcg 1 puff IH Q12h Continue Albuterol 2 puff INH Q6h PRN Status: Acute (5) Anxiety Assessment & Plan: Controlled Dr. Thompson Consulted form Psych- signed off. Ativan PRN Status: Acute (6) Major depression Assessment & Plan: Controlled Continue Zoloft 100mg PO BID- signed off. Status: Chronic (7) Seizure disorder Assessment & Plan: No seizures since admission Vimpat 200mg PO BID is unavailable. Consult Neuro- Dr. Contreras Keppra 750mg IVPB Q12h As per Dr. Araiza, if any seizures occur, increase dose to 1000 mg IVPB Q12H Status: Chronic (8) Chronic pancreatitis Assessment & Plan: Zenpep 25,000 PO TID Status: Acute (9) Hypokalemia Assessment & Plan: K+ 3.3 40mEq Kdur PO once Continue to monitor (10) Insomnia Assessment & Plan: Ambien 10mg PO HS Status: Chronic (11) HTN (hypertension) Assessment & Plan: Atenolol 100mg PO Daily Status: Acute (12) Prophylactic measure Assessment & Plan: Protonix 40mg IVP Daily SCDs Status: Acute All management as per Dr. Ventura. DC to [facility].
[2016-12-17] MEDS: Dorzolamide 2% Opht Sol 10ml OU SCH ×2 (12:19→13:34)
[2016-12-17] MEDS: Fluticasone Nasal 50 mcg/Spray NAS SCH (12:33)
[2016-12-17 16:51] VITALS: BP 144/79; PULSE 67; TEMP 98.4; O2SAT 97
--- NOTE | 2016-12-17 18:06 | PN ---
DATE: 12/17/2016 LOCATION: 352, bed B. This is a 56-year-old female, seen and examined in rounds today without significant clinical changes or reported active bleeding with a complaint of intermittent periods of abdominal pain and mild weakn ess and malaise as well as less oral intake. The entire chart is reviewed including, but not limited to, most recent lab and radiology study resul ts, current and previous medication lists, current and previous medical events. Case discussed with the staff on the floor. The patient tolerated most of her diet today and no reported nausea, no vomi ting, but still with some abdominal pain, voiding urine without significant difficulty or changes. Most recent lab results showed low hemoglobin of 10.5 with hematocrit 33.0 with low indices, highly s uggestive of hypochromic microcytic anemia with potassium of 3.3 and low BUN of 6, creatinine 8.2. PHYSICAL EXAMINATION: GENERAL: A 56-year-old female, awake, alert, oriented. VITAL SIGNS: Afebrile with pulse of 64, respiratory rate 20-22, blood pressure 140/72. HEENT: Showed pale, dry oral mucoid membrane. Nonicteric sclerae. LUNGS: Few scattered crepitation, decreased air entry at bases. HEART: Positive S1 and S2. ABDOMEN: Soft. Bowel sounds are present. No mass or organomegaly. No rebound tenderness or guardi ng. RECTAL: Positive tone. Vault is empty. EXTREMITIES: Without significant clubbing, cyanosis or edema. NEUROLOGIC: No reported neurological deficits, sensory or motor. IMPRESSION: 1. Hypochromic microcytic anemia. 2. Reexacerbation of peptic ulcer disease. 3. Intermittent partial bowel obstruction, so far improving. 4. Electrolyte imbalance with hypocalcemia. 5. Past medical history including, but not limited to, hypertension, hyperlipidemia, chronic obstruc tive pulmonary disease with reported seizure disorder. 6. Known history of chronic pancreatitis. 7. History of severe anxiety syndrome. SUGGESTION: 1. Continue current management. 2. Follow up with urology recommendation. 3. Repeat stool for occult blood. Flo Pena MD cc: 14 TT: 12/17/2016 18:05:46 Confirmation # [id number] Dictation # [id number]
[2016-12-18] MEDS ORDERED: Potassium Chloride 20 mEq ER Tab PO ONE (10:46)
--- NOTE | 2016-12-19 00:08 | PCM.URO ---
Urology Progress Note - General General: Tolerating Diet - Subjective Abdominal Pain: Yes (LESS) Flank Pain: No Nausea: Yes (OCC) Vomiting: No Voiding Well: Yes Dysuria: Yes Hematuria: No [place]: Yes Stone Passed: No Dsypnea: No Chest Pain: No Fever & Chills: No - Physical Exam Abdominal Exam: Soft, Non-Tender, Non-Distended Back: No CVA Tenderness - Plan Ambulation - Out of Bed: Yes Intake & Output: Yes Additional Information: IMP: IMPROVED RE URINARY RETENTION - Date & Time of Note Date: 12/17/16 Time: 14:50
--- NOTE | 2016-12-19 12:11 | HP ---
The patient admitted to the hospital with chief complaint of abdominal pain, generalized weakness, fa tigue, nausea, vomiting. The patient has history of intestinal obstruction in the past, also with blackburn rgery in the past with adhesions. The patient is active asthma, active seizure. PHYSICAL EXAMINATION: GENERAL: The patient is awake, alert, oriented to time and place. VITAL SIGNS: Temperature 98, pulse rate 94, blood pressure 130/70. HEENT: Within normal limits. NECK: Supple. CHEST: Symmetrical. HEART: Regular. ABDOMEN: Distended with generalized tenderness. EXTREMITIES: No edema. The patient suffers from intestinal obstruction. The patient will get bedrest, supportive care, howie rointestinal placed for consult, n.p.o. Felisa Asif MD cc: [id number] TT: 12/19/2016 11:47:24 ma
--- NOTE | 2016-12-19 13:30 | DS ---
The patient admitted to the hospital with chief complaint ____ abdominal pain, nausea, vomiting. The patient is on bedrest, surgical consult, required NG tube ____ NG tube suctioning. The patient cont inued to have pain for several days, unable to eat any food. The patient eventually improved, discha rged to be followed outpatient ____. Felisa Asif MD cc: [id number] TT: 12/19/2016 13:17:17 rn 12/19/2016 12:29:19
--- NOTE | 2016-12-19 14:13 | PQF GENQUE ---
This form is a permanent part of the medical record Dr. Ventura, Please provide me with a final DX. for this patient. What was the underlying cause of this patient abdominal pain? Thank you Clarification of your documentation is requested to better reflect the severity of illness and intensity of treatment of your patient. Indicators present [] Specify: [] [] Specify: [] [] Specify: [] [] Specify: [] Location in the medical record that reflects the above clinical findings: [] Treatment Provided: [] PHYSICIAN'S RESPONSE Based on your medical judgment of the clinical indicators outlined above please clarify the following: [] Practitioner response [] If unable to determine, please check the box, sign and date. Present On Admission (POA) Indicator: [] Present at the time of admission [] Not present at the time of admission [] Clinically Undetermined In responding to this query, please exercise your independent professional judgment. The fact that a question is asked does not imply that any particular answer is desired or expected. Thank you for your clarification on this documentation. If you have any questions please call:[ ] * Thank you, [ ] scallop raker MODESTA
== END 2016-12-17 16:30 | disposition home or self-care (01) | DRG 389 ==
LOC: C.ER 23:49 → C.9E 12-02 05:32 → C.5T 12-02 09:31 → C.3T 12-05 19:36
PROVIDERS: ADMIT Internal Medicine Pulmonary Disease; ATTEND Internal Medicine Pulmonary Disease
PROC: 0DB68ZX Excision of Stomach, Via Natural or Artificial Opening Endoscopic, Diagnostic (ICD-10-PCS; principal; 2016-12-03 12:46)
PROC: 02HV33Z Insertion of Infusion Device into Superior Vena Cava, Percutaneous Approach (ICD-10-PCS; 2016-12-09)
PROC: B548ZZA Ultrasonography of Superior Vena Cava, Guidance (ICD-10-PCS; 2016-12-09)
DX: K56.5 Intestinal adhesions [bands] with obstruction (postinfection) (principal); K86.1 Other chronic pancreatitis; M32.9 Systemic lupus erythematosus, unspecified; N39.0 Urinary tract infection, site not specified; F32.9 Major depressive disorder, single episode, unspecified; J44.9 Chronic obstructive pulmonary disease, unspecified; K29.00 Acute gastritis without bleeding; J45.909 Unspecified asthma, uncomplicated; G40.909 Epilepsy, unspecified, not intractable, without status epilepticus; F41.9 Anxiety disorder, unspecified; I25.10 Atherosclerotic heart disease of native coronary artery without angina pectoris; E78.00 Pure hypercholesterolemia, unspecified; R33.9 Retention of urine, unspecified; D50.9 Iron deficiency anemia, unspecified; D63.8 Anemia in other chronic diseases classified elsewhere; E78.5 Hyperlipidemia, unspecified; E87.6 Hypokalemia; E83.51 Hypocalcemia; I10 Essential (primary) hypertension; K29.80 Duodenitis without bleeding; K27.9 Peptic ulcer, site unspecified, unspecified as acute or chronic, without hemorrhage or perforation; E66.9 Obesity, unspecified; Z85.820 Personal history of malignant melanoma of skin; Z87.440 Personal history of urinary (tract) infections; Z87.442 Personal history of urinary calculi

== ENCOUNTER 2017-03-19 06:14 | Day surgery (SDC) | payer OTHER ==
[2017-03-19 06:48] VITALS: BMI 33.0
[2017-03-19] MEDS ORDERED: Lidocaine 2% Jelly (Uro-Jet) ONE (07:35)
[2017-03-19 07:43] LABS: BLOOD UREA NITROGEN 10 mg/dL (7-17); CALCIUM 8.7 mg/dl (8.6-10.4); CARBON DIOXIDE 31 mmol/L (22-30); CHLORIDE 100 mmol/L (98-107); GFR AFRICAN-AMERICAN > 60; GLUCOSE,RANDOM 93 mg/dL (65-105); SODIUM 144 mmol/L (132-148)
[2017-03-19 07:46] LABS: POTASSIUM 3.5 mmol/L (3.6-5.2)
--- NOTE | 2017-03-19 09:10 | RAD ---
HISTORY: stat cysto COMPARISON: No prior. TECHNIQUE: Chest PA and lateral FINDINGS: LUNGS: Mild patchy increased markings at the right lung base. Mild venous congestion. Chronic interstitial lung markings. PLEURA: No significant pleural effusion identified. No pneumothorax apparent. CARDIOVASCULAR: Left-sided pacer device. OSSEOUS STRUCTURES: Degenerative changes in the spine with paravertebral osteophytes. VISUALIZED UPPER ABDOMEN: Suggestion of an IVC filter in place. Surgical clips in the upper abdomen. OTHER FINDINGS: None. IMPRESSION: Mild patchy increased markings at the right lung base. Mild venous congestion. Chronic interstitial lung markings.
[2017-03-19] MEDS ORDERED: Iohexol 240 (50 ml) ONE (09:35)
[2017-03-19] MEDS ORDERED: Midazolam 2 MG/2 ML VIAL ONE ×4 (09:36→11:50)
[2017-03-19] MEDS ORDERED: Propofol 10 mg/ml Inj (20 ML) ONE ×4 (09:36→11:57)
[2017-03-19] MEDS ORDERED: Lactated Ringer's 1,000 ML IV ONE ×2 (09:37)
[2017-03-19] MEDS: cefTRIAXone IV 1 gm in Dextros 50 ML IVPB ONE ×2 (09:44→09:45)
[2017-03-19 11:30] VITALS: BP 137/70; PULSE 88; RESP 18; TEMP 97.3; O2SAT 97
--- NOTE | 2017-03-19 16:39 | HP ---
REASON FOR ADMISSION: Workup of hematuria. HISTORY OF PRESENT ILLNESS: A very pleasant lady, who I know quite well. She is 56 years' old and she has recurrent urinary tract infection. She also has flank pain and she is here now for further evaluation before the cysto and retrograde. PAST MEDICAL AND SURGICAL HISTORY: Significant, see that on the chart, a patient of Dr. Ventura. MEDICATIONS: Noted. ALLERGIES: NOTED. SHE HAS MULTIPLE ALLERGIES TO NARCOTICS. REVIEW OF SYSTEMS: As listed above, essentially unremarkable. PHYSICAL EXAMINATION: GENERAL: Well-nourished female, in no apparent distress. VITAL SIGNS: Within normal limits. ABDOMEN: Relatively soft, nontender. *------* LABORATORY DATA: See chart. There is a fresh set of labs today and also labs from February. DIAGNOSES: 1. Recurrent infections. 2. Hematuria. 3. Intermittent pain in the back. PLAN: Today, we are going to do cysto, retrograde, exam under anesthesia, and see if we can make further evaluation and plans. Risks and benefits were discussed with the patient at length and as follow: 1. Antibiotic prophylaxis. 2. Anesthesia. 3. Cysto and retrograde pyelogram, possible biopsies depending on what we find clinically. Risks and benefits were discussed with the patient at length. We are going to plan to proceed. Frederic Regan MD
--- NOTE | 2017-03-19 17:11 | RAD ---
PROCEDURE: HISTORY: HEMATURIA COMPARISON: 06/11/2015 retrograde urography TECHNIQUE: Retrograde urography performed by attending urologist FINDINGS: Deck Molder, the IVC tear with apex the L2 level is similar. Multiple plain surgical sutures a right lateral to the L4 and L5 level. Metallic clip projects approximately 2 to 3 cm above the right iliac crest this is also unchanged with the prior exam. 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 The bladder is decompressed an not evaluated as a result. The bilateral ureters are segmentally visualized. Of those portions visualize no contour irregularities or filling defects are seen. No gross extrinsic displacement suggested. The bilateral pelvocaliceal systems appear normal IMPRESSION: Bilateral retrograde exam without filling defect grossly apparent. No collecting system dilatation suggested. Collecting system contours are normal appearing
--- NOTE | 2017-03-20 12:55 | CARD ---
APPROVED REPORT EKG Measurement Heart [id number] <Conclusion> Normal sinus rhythm Normal ECG
--- NOTE | 2017-04-03 13:45 | HP ---
REASON FOR ADMISSION: Workup of hematuria and recurrent infection. Ms. Davenport is a very pleasant lady. I see her often in the hospital in the office. She is very pleasant about the matter she has hematuria, voiding dysfunction, recurrent infections, and she is being admitted now today for a cysto and retrograde pyelogram with a possible stent. PAST MEDICAL AND SURGICAL HISTORY: As listed. Patient of Dr. Ventura. REVIEW OF SYSTEMS: No weight loss, chest pain. SOCIAL HISTORY: Unremarkable. MEDICATIONS: See chart. ALLERGIES: None. PHYSICAL EXAMINATION: GENERAL: Well-nourished female, in no apparent distress. VITAL SIGNS: Within normal limits. LUNGS: Clear. HEART: Normal S1 and S2. ABDOMEN: Relatively soft, nontender. No adenopathy noted. No CVA tenderness. PELVIC: No pelvic or rectal masses LABORATORY DATA: See chart. Everything was within normal limits. DIAGNOSES: Hematuria, recurrent infection. PLAN: Very pleasant lady, we have discussed workup in the office, we discussed various options with the patient. She is now here for a cysto and retrograde pyelogram and then further plans will follow. We may insert a stent if we see any stone disease. Further plans will follow. Frederic Regan MD
--- NOTE | 2017-04-03 13:45 | OP ---
PROCEDURE DATE: 03/19/2017 PREOPERATIVE DIAGNOSES: Hematuria, bilateral flank pain, gross hematuria, and voiding dysfunction. POSTOPERATIVE DIAGNOSES: Hematuria, bilateral flank pain, gross hematuria, and voiding dysfunction. PROCEDURES: Exam under anesthesia, cystoscopy, and bilateral retrograde pyelogram. SURGEON: Frederic Regan MD FINDINGS: Normal urethra. The ureteral orifice is within normal limits. There are some chronic changes within the urinary bladder, likely chronic cystitis, , and normal upper tract noted. ESTIMATED BLOOD LOSS: Less than 10 mL. DRAINS: None. COMPLICATIONS: There were no complications. INDICATIONS: See the history and physical for the details. A very pleasant lady here for the above procedure. DESCRIPTION OF PROCEDURE: After obtaining informed consent, the patient was placed on the table. Routine monitors were placed. Time-out was called to confirm the patient, positioning. We introduced the cystoscope via the urethra with the obturator. No abnormalities detected. Bladder inspected carefully. We noted whitish plaque tissues consistent with chronic cystitis, but no polypoid lesions. Retrograde pyelogram films were submitted for the radiologist were within normal limits. The patient tolerated this well without complications. . Frederic Regan MD
== END 2017-03-19 12:14 | disposition home or self-care (01) ==
LOC: C.SDS 06:14
PROVIDERS: ATTEND Urology
DX: N30.21 Other chronic cystitis with hematuria (principal); Z87.440 Personal history of urinary (tract) infections
CPT/HCPCS: 36415; 52005; 71020; 74420; 80048; 93005; C1758; J0696; J2405; J7120; Q9966

== ENCOUNTER 2017-07-02 02:15 | Inpatient (IN) | payer OTHER ==
[2017-07-02 02:15] VITALS: BMI 33.0
[2017-07-02] MEDS ORDERED: Lactated Ringer's 1,000 ML IV ONE (02:45)
[2017-07-02] MEDS ORDERED: Lactated Ringer's 1,000 ML ONE ×2 (02:59→04:26)
[2017-07-02 03:00] LABS: BASO % 0.1 % (0.0-2.0); HEMATOCRIT 39.9 % (34.0-47.0); LYMPH # 2.1 K/uL (1.0-4.3); LYMPH % 14.7 % (20.0-40.0); MEAN CELL VOLUME 79.5 fL (81.0-99.0); MEAN CORPUSCULAR HEMOGLOBIN 25.1 pg (27.0-31.0); MEAN CORPUSCULAR HGB CONC 31.6 g/dL (33.0-37.0); MEAN PLATELET VOLUME 8.5 fL (7.2-11.7); MONO # 0.6 K/uL (0.0-0.8); MONO % 4.2 % (0.0-10.0); RED CELL DISTRIBUTION WIDTH 15.7 % (11.5-14.5); WHITE BLOOD COUNT 14.1 K/uL (4.8-10.8)
[2017-07-02] MEDS ORDERED: Lactated Ringer's 1,000 ML IV SCH (03:00)
--- NOTE | 2017-07-02 03:04 | C.PDOC ---
History Of Present Illness 57 year old female with Hx of GI bleed presents to the ED c/o abdominal pain for several days, today she states having diarrhea and vomit. Patient denies any fever, urinary symptoms, fall, trauma. Chief Complaint (Nursing): GI Problem History Per: Patient History/Exam Limitations: no limitations Onset/Duration Of Symptoms: Days Current Symptoms Are (Timing): Still Present Location Of Pain/Discomfort: Epigastric Quality Of Discomfort: "Pain" Associated Symptoms: Vomiting, Diarrhea Recent travel outside of the [place]: No Additional History Per: Patient Abnormal Vaginal Bleeding: No Past Medical History Reviewed: Historical Data, Nursing Documentation, Vital Signs Vital Signs: Last Vital Signs Temp 98.4 F 07/02/17 02:23 Pulse 87 07/02/17 03:45 Resp 16 07/02/17 03:45 BP 152/79 H 07/02/17 03:45 Pulse Ox 95 07/02/17 03:45 - Medical History PMH: Anxiety, Arthritis, Asthma, CAD, COPD, Depression, Diverticulitis, Gastritis, Gall Bladder Disease, HTN, Hypercholesterolemia, Malignancy (CANCER?) , Pancreatitis, Peripheral Edema (right leg), Pneumonia, Chronic Kidney Disease (kidney cyst), Seizures Surgical History: Appendectomy, Cholecystectomy, Endoscopy - [facility] Procedures CLOSED ENDOSCOPIC BIOPSY OF LARGE INTESTINE (04/26/13) ENDO EXCISION/DEST OF LESION OR TISSUE OF STOMACH (12/28/13) ESOPHAGOGASTRODUODENOSCOPY [EGD] W/CLOSED BIOPSY (04/26/13) EXCISION OF STOMACH, ENDO, DIAGN (12/02/16) INCIS W REM OF FORIEGN BODY OR DEV FROM SKIN & SUBCUT TISSUE (10/10/13) INSERTION OF INFUSION DEV INTO SUP VENA CAVA, PERC APPROACH (12/02/16) OTHER ENDOSCOPY OF SM INTEST (02/06/13) ULTRASONOGRAPHY OF SUPERIOR VENA CAVA, GUIDANCE (12/02/16) VENOUS CATHETERIZATION NEC (02/13/14) Family History: States: Unknown Family Hx - Social History Hx Tobacco Use: No Hx Alcohol Use: Yes Hx Substance Use: No - Immunization History Hx Tetanus Toxoid Vaccination: No Hx Influenza Vaccination: Yes Hx Pneumococcal Vaccination: No Review Of Systems Constitutional: Negative for: Fever Cardiovascular: Negative for: Chest Pain, Palpitations Respiratory: Negative for: Cough, Shortness of Breath Gastrointestinal: Positive for: Vomiting, Abdominal Pain, Diarrhea Genitourinary: Negative for: Dysuria, Hematuria, Vaginal Discharge, Vaginal Bleeding Musculoskeletal: Negative for: Back Pain Neurological: Negative for: Weakness, Numbness Physical Exam - Physical Exam Appears: Non-toxic, No Acute Distress Skin: Normal Color, Warm, Dry Head: Atraumatic, Normacephalic Oral Mucosa: Moist Chest: Symmetrical, No Tenderness Cardiovascular: Rhythm Regular, No Murmur Respiratory: Normal Breath Sounds, No Rales, No Rhonchi, No Wheezing Gastrointestinal/Abdominal: Soft, Tenderness (Epigastric region ), No Guarding, No Rebound Extremity: Normal ROM, No Pedal Edema, No Calf Tenderness, No Swelling Neurological/Psych: Oriented x3, Normal Speech, Normal Cognition Gait: Steady ED Course And Treatment - Laboratory Results Result Diagrams: 07/02/17 02:55 07/02/17 02:55 ECG: Interpreted By Me, Viewed By Me ECG Rhythm: Sinus Rhythm ECG Interpretation: No Changes From Prior Interpretation Of ECG: NSR, no acute changes, normal tracings. Rate From EC O2 Sat by Pulse Oximetry: 96 (On RA) Pulse Ox Interpretation: Normal - Radiology CXR: Interpreted by Me, Viewed By Me CXR Interpretation: Yes: No Acute Disease. No: Infiltrates Medical Decision Making Medical Decision Making: Impression : 57 y/o female with Hx of GI bleed presents with abdominal pain Plan: * EKG, CXR, UA ordered * Bentyl 20 mg PO and IM, Lactated 1000 mls/Hr, Protonix 40 mg IVP given On reevaluation is was noted that patient began to have bloody stools. Disposition Discussed With : Felisa Ventura Doctor Will See Patient In The: Hospital Counseled Patient/Family Regarding: Diagnosis - Disposition Referrals: Felisa Ventura MD [Staff Provider] - Disposition: HOSPITALIZED Disposition Time: 04:21 Condition: STABLE Forms: [facility] (Nigerian) - POA Present On Arrival: None - Clinical Impression Clinical Impression: Gastrointestinal hemorrhage, Abdominal pain - Scribe Statement The provider has reviewed the documentation as recorded by the Scribe Wang Miles All medical record entries made by the Scribe were at my direction and personally dictated by me. I have reviewed the chart and agree that the record accurately reflects my personal performance of the history, physical exam, medical decision making, and the department course for this patient. I have also personally directed, reviewed, and agree with the discharge instructions and disposition.
[2017-07-02 03:11] LABS: BILIRUBIN,TOTAL 0.7 mg/dL (0.2-1.3); CALCIUM 8.5 mg/dl (8.6-10.4); GFR AFRICAN-AMERICAN > 60; GLUCOSE,RANDOM 94 mg/dL (65-105)
[2017-07-02 03:43] LABS: ALB/GLOB RATIO 0.9 (1.0-2.1); ALKALINE PHOSPHATASE 134 U/L (38-126); ALT/SGPT 30 U/L (9-52); AST/SGOT 36 U/L (14-36); BLOOD UREA NITROGEN 14 mg/dL (7-17); CARBON DIOXIDE 28 mmol/L (22-30); CHLORIDE 101 mmol/L (98-107); POTASSIUM 3.9 mmol/L (3.6-5.2); SODIUM 140 mmol/L (132-148); TOTAL PROTEIN 9.8 g/dL (6.3-8.3)
[2017-07-02] MEDS ORDERED: HYDROmorphone 1 mg/ml ISec IVP STA ×2 (03:43→04:10)
[2017-07-02] MEDS ORDERED: HYDROmorphone 1 mg/ml ISec ONE ×2 (03:45→04:19)
[2017-07-02] MEDS ORDERED: ALBUTEROL 0.083% INH PRN (04:39)
[2017-07-02] MEDS: Dextrose 5%/0.45% NS 1,000 ML IV SCH ×2 (05:14→21:44)
[2017-07-02] MEDS: HYDROmorphone 1 mg/ml ISec IVP PRN ×2 (08:26→12:24)
[2017-07-02 09:03] LABS: RBC URINE 1 /hpf (0-3); URINE BILIRUBIN NEGATIVE (NEGATIVE); URINE BLOOD NEGATIVE (NEGATIVE); URINE COLOR Yellow (YELLOW); URINE GLUCOSE (UA) NORMAL (Normal); URINE KETONE NEGATIVE (NEGATIVE); URINE LEUKOCYTE ESTERASE 1+ Leu/uL (Negative); URINE PROTEIN NEGATIVE (NEGATIVE); URINE UROBILINOGEN NORMAL mg/dL (0.2-1.0); WBC URINE 9 /hpf (0-5)
--- NOTE | 2017-07-02 09:57 | RAD ---
PROCEDURE: CHEST RADIOGRAPH, 1 VIEW HISTORY: abd pain COMPARISON: 03/19/2017 FINDINGS: LUNGS: Clear. PLEURA: No pneumothorax or pleural fluid seen. CARDIOVASCULAR: Normal heart size. Nasogastric tube appears to terminate in the mid thorax. Repositioned or replaced S2. OSSEOUS STRUCTURES: No significant abnormalities. VISUALIZED UPPER ABDOMEN: Normal. OTHER FINDINGS: None. IMPRESSION: Nasogastric tube terminates mid thorax. This needs to be repositioned or replaced. New finding this finding was discussed by telephone with the patient's nurse, [place], on [address] [place] at 8:48 a.m. on 07/02/2017.
[2017-07-02] MEDS ORDERED: BRIMONIDINE TARTRATE OP SCH (10:00)
[2017-07-02] MEDS ORDERED: BRINZOLAMIDE OP SCH (10:00)
[2017-07-02] MEDS ORDERED: BRINZOLAMIDE OU SCH (10:00)
[2017-07-02] MEDS ORDERED: Fluticasone-Salmeterol 500-50mcg Diskus IH SCH ×2 (10:00→20:00)
[2017-07-02] MEDS ORDERED: Albuterol 0.083% Inhal Sol (2.5 mg/3 mL) UD INH PRN (11:00)
[2017-07-02] MEDS: DiphenhydrAMINE 50 mg/ml Inj IVP PRN ×3 (11:12→21:41)
--- NOTE | 2017-07-02 13:10 | CP.PCM.PN ---
Subjective - Date & Time of Evaluation Date of Evaluation: 07/02/17 Time of Evaluation: 13:00 - Subjective Subjective: Progress note. Attending: Dr. Ventura Pt seen and examined at bedside. No acute distress. NG tube now in place. Pt has vomited blood x 2. Dr. Vargas has been following. Some abdominal pain and itching. No fevers, chills, no more vomiting. Some diarrhea reported this morning. PMH: seizures, lupus, asthma, HTN, colitis, chronic pancreatitis PSH: cholecystectomy, port placement and removal, partial appendectomy Allergies: tylenol, codeine, percocet FH: Breast cancer in family Social : Denies smoking, drinking, drug use. Born in [place] Lives alone. Objective - Vital Signs/Intake and Output Vital Signs (last 24 hours): Temp Pulse Resp BP Pulse Ox 98.7 F 92 H 20 149/84 95 07/02/17 07:47 07/02/17 07:47 07/02/17 07:47 07/02/17 07:47 07/02/17 07:47 Intake and Output: 07/02/17 07/02/17 06:59 18:59 Intake Total 100 Output Total 300 301 Balance -300 -201 - Medications Medications: Current Medications Albuterol Sulfate (Albuterol 0.083% Inhal Radha (2.5 Mg/3 Ml) Ud) 2.5 mg INH RQ6 PRN PRN Reason: Shortness of Breath Diphenhydramine HCl (Benadryl) 25 mg IVP Q6 PRN PRN Reason: Itching / Pruritus Last Admin: 07/02/17 11:12 Dose: 25 mg Fluticasone Propionate (Flonase) 1 spr АНДРЕЙ DAILY [facility] (Bimatoprost [Lumigan]) 2.5 ml OP HS [facility] (Brimonidine Tartrate [Alphagan P 0.1 % Ophth]) 1 drop OP BID [facility] (Brinzolamide [Azopt]) 1 drop OP BID [facility] (Brinzolamide [Azopt]) 1 drop OU BID [facility] (Lumigan 2.5 Ml) 1 drop OU HS [facility] Hydromorphone HCl (Dilaudid) 2 mg IVP Q4H PRN PRN Reason: pain Last Admin: 11/16/17 12:24 Dose: 2 mg Dextrose/Sodium Chloride (Dextrose 5%/0.45% Ns 1000 Ml) 1,000 mls @ 100 mls/hr IV .Q10H [facility] Last Admin: 07/02/17 05:14 Dose: 100 mls/hr Lorazepam (Ativan) 1 mg IVP Q8H PRN PRN Reason: Anxiety Pantoprazole Sodium (Protonix Inj) 40 mg IVP DAILY [facility] Last Admin: 07/02/17 10:00 Dose: 40 mg Pneumococcal Polyvalent Vaccine (Pneumovax 23 Vaccine) 0.5 ml IM .ONCE ONE Stop: 07/04/17 10:01 Fluticasone/Salmeterol (Advair Diskus 500/50) 1 puff IH RQ12 [facility] - Labs Labs: 07/02/17 02:55 07/02/17 02:55 PT 11.6 SECONDS (9.7-12.2) 07/02/17 02:55 INR 1.0 07/02/17 02:55 APTT 26 SECONDS (21-34) 07/02/17 02:55 - Constitutional Appears: Non-toxic, No Acute Distress - Head Exam Head Exam: ATRAUMATIC, NORMAL INSPECTION, NORMOCEPHALIC - Eye Exam Eye Exam: EOMI - ENT Exam ENT Exam: Mucous Membranes Moist - Neck Exam Neck Exam: Full ROM, Normal Inspection - Respiratory Exam Respiratory Exam: NORMAL BREATHING PATTERN. absent: Respiratory Distress - Cardiovascular Exam Cardiovascular Exam: +S1, +S2 - GI/Abdominal Exam GI & Abdominal Exam: Soft, Tenderness - Extremities Exam Extremities Exam: Full ROM, Normal Inspection - Neurological Exam Neurological Exam: Alert, Awake, Oriented x3 - Psychiatric Exam Psychiatric exam: Normal Affect, Normal Mood - Skin Skin Exam: Dry, Intact, Normal Color, Warm Assessment and Plan - Assessment and Plan (Free Text) Assessment: This is a 57 yo female with 1. Abdominal pain -GI consult. Dr. Pena. reckira appreciated. -continue D5 1/2 NS 100 cc/hr -NG tube in place -lipase within normal limits -stool studies pending -dilaudid 2 mg IV q4 hrs prn pain -surgery consulted. Dr. Vargas. recs appreciated. -ct scan ordered with PO/IV contrast for abdomen and pelvis. 2. Hx of HTN -continue to monitor 3. Hx of insomnia -continue to monitor 4. hx of asthma -continue flonase -continue albuterol and advair inhalers 5. hx of anxiety -continue to monitor 6. Hx of seizures -ativan 1 mg IV q 8 hrs 7. GI/DVT ppx -protonix daily -SCDs discussed with Dr. Ventura
[2017-07-02] MEDS ORDERED: Iohexol 240 (50 ml) PO ONE (13:30)
--- NOTE | 2017-07-02 13:42 | RAD ---
HISTORY: NG tube placement COMPARISON: Chest x-ray performed 07/02/17. TECHNIQUE: Chest, one view. FINDINGS: Examination limited by habitus. Nasogastric tube extends to the expected location of the stomach. LUNGS: No focal consolidation. Please note that chest x-ray has limited sensitivity for the detection of pulmonary masses. PLEURA: No significant pleural effusion identified. No definite pneumothorax . CARDIOVASCULAR: Mild cardiomegaly. OSSEOUS STRUCTURES: Degenerative changes of the spine. VISUALIZED UPPER ABDOMEN: Unremarkable. OTHER FINDINGS: Device projects over the left lower chest. IMPRESSION: Mild cardiomegaly. Nasogastric tube extends expected location of the stomach.
[2017-07-02] MEDS: Fluticasone Nasal 50 mcg/Spray NAS SCH (13:48)
[2017-07-02] MEDS: Dorzolamide 2% Opht Sol 10ml OU SCH ×2 (15:00→17:25)
[2017-07-02] MEDS ORDERED: Iohexol 300 100 ML IJ ONE (16:15)
--- NOTE | 2017-07-02 18:08 | CT ---
CTA abdomen and pelvis Indication: Abdominal pain Comparison: CT abdomen and pelvis without contrast performed 12/12/16 Technique: Contrast dose: 100 mL Omnipaque 300 Total exam DLP: Axial computed tomographic angiogram images of the abdomen and pelvis were performed after bolus administration of nonionic intravenous contrast. Multiplanar, 3D (maximum intensity projection) reconstructions of the aorta were created in the coronal and sagittal planes by the biochemistry technologist. This CT exam was performed using 1 or more of the falling dose reduction techniques: Automated exposure control, adjustment of the MAA and/or kV according to patient size, and/or use of iterative reconstruction technique. Findings: Limited views of the inferior thorax demonstrate right basilar calcified nodules. No visible pleural effusion or pneumothorax. There is normal course and contour of the abdominal aorta and common iliac arteries. The celiac artery origin is widely patent. The superior mesenteric artery origin is widely patent. The inferior mesenteric artery origin is patent. Single renal arteries identified bilaterally, both widely patent. IVC filter. 8 mm splenule. 19 mm hypodensity measures approximately 5 HU within the left kidney, consistent with cyst. 12 mm hyperdense indeterminate lesion arising along the posterior aspect of the right upper pole. Nonobstructing 3 mm left renal calculus. The liver, pancreas, spleen, and adrenal glands appear unremarkable. The kidneys enhance symmetrically without evidence of hydronephrosis or obstructing renal calculi. Cholecystectomy. No enlarged abdominal lymphadenopathy is identified. Visualized bowel loops appear within normal limits of caliber without evidence of obstruction. Bowel anastomotic suture material. No definite free air. The urinary bladder appears unremarkable. The uterus is present. Anterior abdominal wall skin thickening/scarring. No significant pelvic free fluid is identified. Degenerative changes. Impression: Right basilar calcified nodules. IVC filter. 19 mm hypodensity measures approximately 5 HU within the left kidney, consistent with cyst. 12 mm hyperdense indeterminate lesion arising along the posterior aspect of the right upper pole ; recommend ultrasound for further characterization. Nonobstructing 3 mm left renal calculus. Cholecystectomy. Anterior abdominal wall skin thickening/scarring.
[2017-07-02] MEDS: Brimonidine 0.2% Opth Sol (5ml) OU SCH (21:43)
[2017-07-02] MEDS: Latanoprost 2.5 ml Opht Soln OU SCH (21:44)
[2017-07-02] MEDS ORDERED: BIMATOPROST OP SCH (22:00)
[2017-07-02] MEDS: LACOSAMIDE 150 MG PO SCH (23:16)
[2017-07-03] MEDS: DiphenhydrAMINE 50 mg/ml Inj IVP PRN ×3 (03:43→17:47)
[2017-07-03] MEDS: Dextrose 5%/0.45% NS 1,000 ML IV SCH ×3 (06:55→22:43)
[2017-07-03 07:03] LABS: HEMATOCRIT 34.2 % (34.0-47.0); LYMPH # 1.1 K/uL (1.0-4.3); LYMPH % 15.9 % (20.0-40.0); MEAN CORPUSCULAR HEMOGLOBIN 25.9 pg (27.0-31.0); MEAN CORPUSCULAR HGB CONC 32.7 g/dL (33.0-37.0); MEAN PLATELET VOLUME 8.2 fL (7.2-11.7); MONO # 0.5 K/uL (0.0-0.8); MONO % 6.6 % (0.0-10.0); RED CELL DISTRIBUTION WIDTH 15.4 % (11.5-14.5); WHITE BLOOD COUNT 7.2 K/uL (4.8-10.8)
[2017-07-03 07:13] LABS: ALB/GLOB RATIO 0.9 (1.0-2.1); ALKALINE PHOSPHATASE 179 U/L (38-126); ALT/SGPT 127 U/L (9-52); AST/SGOT 120 U/L (14-36); BLOOD UREA NITROGEN 7 mg/dL (7-17); CALCIUM 7.9 mg/dl (8.6-10.4); CARBON DIOXIDE 32 mmol/L (22-30); CHLORIDE 100 mmol/L (98-107); GFR AFRICAN-AMERICAN > 60; GLUCOSE,RANDOM 92 mg/dL (65-105); MAGNESIUM 1.6 mg/dL (1.6-2.3); PHOSPHOROUS 3.8 mg/dL (2.5-4.5); POTASSIUM 2.9 mmol/L (3.6-5.2); SODIUM 139 mmol/L (132-148); TOTAL PROTEIN 7.7 g/dL (6.3-8.3)
--- NOTE | 2017-07-03 09:24 | HP ---
HISTORY OF PRESENT ILLNESS: The patient is a 57-year-old female admitted to the hospital with a chief complaint of nausea, vomiting, abdominal pain, weakness. The patient came to the ER GI bleeding. Patient has history of ulcer disease, intestinal obstruction. PHYSICAL EXAMINATION: GENERAL: Patient is awake, alert, and oriented. VITAL SIGNS: Temperature 98, pulse 90. HEENT: Within normal limits. NECK: Supple. CHEST: Symmetrical. HEART: Regular. ABDOMEN: Soft. EXTREMITIES: No edema. IMPRESSION AND PLAN: Patient suffers from gastrointestinal bleeding, intestinal obstruction. Patient given bed rest, supportive care, IV fluids. Felisa Ventura MD
--- NOTE | 2017-07-03 10:09 | CP.PCM.PN ---
Subjective - Date & Time of Evaluation Date of Evaluation: 07/03/17 Time of Evaluation: 10:00 - Subjective Subjective: PROGRESS NOTE. Attending: Dr. Ventura Pt seen and examined at bedside. No acute distress. No events overnight. No more vomiting, NG tube in place. Has not had BM. No fevers chills, reporting some abdominal pain. EGD today. Objective - Vital Signs/Intake and Output Vital Signs (last 24 hours): Temp Pulse Resp BP Pulse Ox 97.8 F 73 20 146/62 96 07/03/17 07:53 07/03/17 07:53 07/03/17 07:53 07/03/17 07:53 07/03/17 07:53 Intake and Output: 07/03/17 07/03/17 06:59 18:59 Intake Total 800 Output Total 200 Balance 600 - Medications Medications: Current Medications Albuterol Sulfate (Albuterol 0.083% Inhal Radha (2.5 Mg/3 Ml) Ud) 2.5 mg INH RQ6 PRN PRN Reason: Shortness of Breath Brimonidine Tartrate (Alphagan 0.2% Opht) 0 ml OU Q12 [facility] Last Admin: 07/02/17 21:43 Dose: 1 drop Diphenhydramine HCl (Benadryl) 25 mg IVP Q6 PRN PRN Reason: Itching / Pruritus Last Admin: 07/03/17 03:43 Dose: 25 mg Dorzolamide HCl (Trusopt) 0 ml OU TID [facility] Last Admin: 07/02/17 17:25 Dose: 1 drop Fluticasone Propionate (Flonase) 1 spr АНДРЕЙ DAILY [facility] Last Admin: 07/02/17 13:48 Dose: 1 spr Home Med (Patient's Own Control Medication Ii) 1 tab PO BID [facility] Last Admin: 07/02/17 23:16 Dose: 1 tab Hydromorphone HCl (Dilaudid) 2 mg IVP Q4H PRN PRN Reason: pain Last Admin: 07/03/17 08:30 Dose: 2 mg Dextrose/Sodium Chloride (Dextrose 5%/0.45% Ns 1000 Ml) 1,000 mls @ 100 mls/hr IV .Q10H [facility] Last Admin: 07/03/17 06:55 Dose: Not Given Potassium Chloride (Potassium Chloride 20 Meq/100 Ml) 20 meq in 100 mls @ 50 mls/hr IVPB ONCE ONE Stop: 07/03/17 11:25 Last Admin: 07/03/17 09:38 Dose: 50 mls/hr Latanoprost (Xalatan Opht) 0 ml OU HS [facility] Last Admin: 07/02/17 21:44 Dose: 2.5 ml Lorazepam (Ativan) 1 mg IVP Q8H PRN PRN Reason: Anxiety Pantoprazole Sodium (Protonix Inj) 40 mg IVP DAILY [facility] Last Admin: 07/02/17 10:00 Dose: 40 mg Pneumococcal Polyvalent Vaccine (Pneumovax 23 Vaccine) 0.5 ml IM .ONCE ONE Stop: 07/04/17 10:01 Fluticasone/Salmeterol (Advair Diskus 500/50) 1 puff IH RQ12 [facility] - Labs Labs: 07/03/17 06:33 07/03/17 06:33 PT 11.6 SECONDS (9.7-12.2) 07/02/17 02:55 INR 1.0 07/02/17 02:55 APTT 26 SECONDS (21-34) 07/02/17 02:55 - Constitutional Appears: Non-toxic, In Acute Distress - Head Exam Head Exam: ATRAUMATIC, NORMAL INSPECTION, NORMOCEPHALIC - Eye Exam Eye Exam: EOMI - ENT Exam ENT Exam: Mucous Membranes Moist - Neck Exam Neck Exam: Full ROM, Normal Inspection - Respiratory Exam Respiratory Exam: NORMAL BREATHING PATTERN. absent: Respiratory Distress - Cardiovascular Exam Cardiovascular Exam: +S1, +S2 - GI/Abdominal Exam GI & Abdominal Exam: Soft, Normal Bowel Sounds. absent: Tenderness - Extremities Exam Extremities Exam: Full ROM, Normal Inspection - Back Exam Back Exam: NORMAL INSPECTION - Neurological Exam Neurological Exam: Alert, Awake, Oriented x3 - Psychiatric Exam Psychiatric exam: Normal Affect, Normal Mood - Skin Skin Exam: Dry, Intact, Normal Color, Warm Assessment and Plan - Assessment and Plan (Free Text) Assessment: This is a 57 yo female with 1. Abdominal pain -GI consult. Dr. Pena. reckira appreciated. -continue D5 1/2 NS 100 cc/hr -NG tube in place -lipase within normal limits -stool studies pending -dilaudid 2 mg IV q4 hrs prn pain -surgery consulted. Dr. Vargas. recs appreciated. -ct scan angio of abdomen pelvis shows calcified basilar nodules, 19 mm cyst left kidney, 12 mm hyperdense lesion right kidney, 3 mm non onbstructing left renal calculus (please see full report) -EGD today 2. Transaminitis -GI consult as above. -alk phos is also elevated. 2. Hx of HTN -continue to monitor 3. Hypokalemia -repleted with IV KCL -recheck and continue to monitor 3. Hx of insomnia -continue to monitor 4. hx of asthma -continue flonase -continue albuterol and advair inhalers 5. hx of anxiety -continue to monitor 6. Hx of seizures -ativan 1 mg IV q 8 hrs -continue home vimpat 150 mg PO bid. 7. GI/DVT ppx -protonix daily -SCDs discussed with Dr. Ventura
[2017-07-03] MEDS ORDERED: Lactated Ringer's 1,000 ML IV ONE (10:10)
[2017-07-03] MEDS ORDERED: Lidocaine Hydrochloride 5 ML INJ ONE (10:12)
[2017-07-03] MEDS ORDERED: Propofol 10 mg/ml Inj (20 ML) ONE (10:12)
[2017-07-03] MEDS ORDERED: Midazolam 2 MG/2 ML VIAL ONE (10:13)
[2017-07-03] MEDS ORDERED: Albuterol HFA 90 mcg/actuation (8 g) ONE (10:25)
--- NOTE | 2017-07-03 11:16 | CARD ---
APPROVED REPORT EKG Measurement Heart [id number] <Conclusion> Normal sinus rhythm Moderate voltage criteria for LVH, may be normal variant Borderline ECG
[2017-07-03] MEDS: LACOSAMIDE 150 MG PO SCH ×2 (11:38→17:42)
[2017-07-03] MEDS: Dorzolamide 2% Opht Sol 10ml OU SCH ×3 (11:39→17:43)
[2017-07-03] MEDS: Brimonidine 0.2% Opth Sol (5ml) OU SCH ×2 (11:39→22:06)
[2017-07-03 15:54] VITALS: RESP 20
[2017-07-03] MEDS: Fluticasone Nasal 50 mcg/Spray NAS SCH (17:54)
[2017-07-03] MEDS: Latanoprost 2.5 ml Opht Soln OU SCH (22:05)
[2017-07-03] MEDS: Sucralfate 1 gm/10 ml Oral Susp UD PO SCH (22:08)
[2017-07-04] MEDS: DiphenhydrAMINE 50 mg/ml Inj IVP PRN ×2 (05:23→11:49)
[2017-07-04] MEDS ORDERED: Influenza Vaccine 60 mcg/0.5 mL SYR (4YR UP) IM ONE (07:18)
[2017-07-04 07:44] VITALS: BP 146/84; PULSE 71; TEMP 98.3; O2SAT 95
[2017-07-04] MEDS: Sucralfate 1 gm/10 ml Oral Susp UD PO SCH (08:24)
[2017-07-04] MEDS: Fluticasone Nasal 50 mcg/Spray NAS SCH (09:56)
[2017-07-04] MEDS: Dorzolamide 2% Opht Sol 10ml OU SCH (09:56)
[2017-07-04] MEDS: LACOSAMIDE 150 MG PO SCH (09:56)
[2017-07-04] MEDS: Brimonidine 0.2% Opth Sol (5ml) OU SCH (09:57)
[2017-07-04] MEDS ORDERED: Pneumococcal 23-Valent Vaccine IM ONE (10:00)
--- NOTE | 2017-07-04 13:29 | PN ---
DATE: LOCATION: [facility], bed A. SUBJECTIVE: This is a 57-year-old female, postoperative endoscopy, seen and examined in rounds early today without significant clinical changes. The patient has still intermittent period of nausea, for which Zofran was given. No reported active bleeding. The entire chart is reviewed including but not limited to most recent lab and radiology study results, current and the previous medication list, current and the previous medical events and the latest lab results done yesterday and showed normal CBC, but low indices with low potassium of 2.9, increased CO2 content 32, indicative of respiratory alkalosis with low calcium 7.9 with subsequent increase of serum liver function test of unclear etiology. It has to be mentioned that the patient had angiography CAT scan done 2 days ago, report is seen. The patient is to be discharged today and apparently she resist discharge, although she is tolerating oral intake well. Pathology from gastric mucosa, results still pending. PHYSICAL EXAMINATION: GENERAL: A 57-year-old female. VITAL SIGNS: Afebrile with pulse of 70, respiratory rate 20 to 22, with blood pressure of 140/82. HEENT: Showed pale, dry oral mucous membrane. Nonicteric sclerae. LUNGS: Few scattered crepitations with decreased air entry at bases. HEART: Positive S1 and S2. ABDOMEN: Soft with mild distension. Bowel sounds are hypoactive. No mass or organomegaly. No rebound tenderness or guarding. EXTREMITIES: Without significant clubbing, cyanosis or edema. NEUROLOGIC: No reported new neurological deficits, sensory or motor. IMPRESSION: 1. Re-exacerbation of peptic ulcer disease. 2. Known history of diverticulosis with diverticulitis, hypertension, depression, chronic obstructive pulmonary disease, coronary artery disease with hyperlipidemia with seizure disorder. 3. Status post cholecystectomy. 4. Abnormal liver function test of unclear etiology that could be secondary to chemical hepatitis versus, less likely viral hepatitis. SUGGESTIONS: 1. Agree with your plan. 2. Hepatitis profile. 3. Abdominal ultrasound before discharge home. 4. The patient is to be followed up as an outpatient as directed by the admitting MD. Wili Chambers MD
[2017-07-04] MEDS ORDERED: Potassium Chloride 20 mEq ER Tab PO ONE (13:30)
[2017-07-04 14:16] LABS: BLOOD UREA NITROGEN 4 mg/dL (7-17); CALCIUM 8.2 mg/dl (8.6-10.4); CARBON DIOXIDE 29 mmol/L (22-30); CHLORIDE 98 mmol/L (98-107); GFR AFRICAN-AMERICAN > 60; GLUCOSE,RANDOM 90 mg/dL (65-105); POTASSIUM 2.9 mmol/L (3.6-5.2); SODIUM 138 mmol/L (132-148)
[2017-07-05] MEDS ORDERED: Potassium Chloride 20 mEq ER Tab PO ONE (13:00)
--- NOTE | 2017-07-06 07:34 | CON ---
DATE: 07/02/2017 I was called for a GI consultation by the admitting MD. The patient is seen and fully examined on 07/02/2017, as requested by the admitting medical staff. The entire chart is reviewed including, but not limited to the most recent lab and radiology study results, current and the previous medication lists, current and the previous medical events as well as allergy to medication list. HISTORY OF PRESENT ILLNESS: This is a 57-year-old female, a very well-known case for me from multiple previous admissions, admitted to the hospital through the emergency room with multiple complaints of abdominal pain for several days with recurrent episode of nausea, vomiting, and then diarrhea. No reported chest pain, palpitations, chills or fever. PAST MEDICAL HISTORY: Including but not limited to COPD, severe anxiety syndrome, peptic ulcer disease, hypertension, hyperlipidemia, pancreatitis before and seizure disorder, was status post appendectomy and cholecystectomy. Known history for pneumonia with diverticulosis and diverticulitis in the past. CURRENT MEDICATIONS: Medication lists were reviewed. FAMILY HISTORY: Unknown. SOCIAL HISTORY: Positive for alcohol intake but no recent history of cigarette smoking. ALLERGIC TO MEDICATION: UNCLEAR. After being admitted to the hospital, the patient was found to have leukocytosis of 14.1, but normal hemoglobin and hematocrit. PHYSICAL EXAMINATION: GENERAL: A 57-year-old female appeared to be awake, alert, and oriented, complaining of abdominal pain with nausea and dyspepsia. VITAL SIGNS: The patient is febrile, pulse of 82, respiratory rate 20 to 22, blood pressure of 146/76. HEENT: Showed pale, dry oral mucoid membrane. Nonicteric sclerae. LUNGS: A few scattered crepitation. Decreased air entry at the bases bilaterally with few wheezing. LYMPH NODES: No lymphadenitis or lymphadenopathy. HEART: Positive S1 and S2. ABDOMEN: Soft, slightly distention, mildly obese with generalized tenderness. No mass or organomegaly. No rebound tenderness or guarding. RECTAL: The patient refused. EXTREMITIES: Left lower extremity . No clubbing or cyanosis. NEUROLOGIC: No new reported neurological deficits, sensory or motor. IMPRESSION: 1. Re-exacerbation of peptic ulcer disease. 2. Rule out possible gastric ulceration, rule out possible diabetic gastroparesis. 3. Rule out acute but recurrent pancreatitis. 4. Multiple past medical history including, but not limited to hypertension, hyperlipidemia, chronic obstructive pulmonary disease, seizure disorder as well as coronary artery disease. SUGGESTIONS: 1. Agree with your plan. 2. Sectional abdominal and pelvic CAT scan. 3. Serum lipase and amylase level, cancer markers. 4. Proton pump inhibitors. 5. Zofran IV. 6. Due to patient's leukocytosis, complete stool workup due to her reported recent diarrhea . 7. Flagyl IV. 8. Endoscopic evaluation of the upper GI tract if the patient's symptoms persist. 9. the patient had an NG tube for questionable possible intermittent partial bowel obstruction which she had before; however, the patient had hypoactive bowel sound and had been passing gas and bowel movement until her admission with reported episode of diarrhea. At this point, NG tube to be removed post upper endoscopy. 10. Further recommendations to follow. Thank you for letting me to participate in your patient's case management. Wili Chambers MD cc: Felisa Ventura MD
--- NOTE | 2017-07-06 09:01 | DS ---
A 57-year-old female with chief complaint of nausea, vomiting, recent diarrhea and abdominal pain. The patient is NG tube suction. Endoscopy show evidence of gastritis, esophagitis. The patient improved with NG tube suction discharge today. Follow up as an outpatient. Felisa Ventura MD
== END 2017-07-04 14:20 | disposition home or self-care (01) | DRG 392 ==
LOC: C.ER 02:15 → C.3T 04:21
PROVIDERS: ADMIT Internal Medicine Pulmonary Disease; ATTEND Internal Medicine Pulmonary Disease
PROC: 0DB68ZX Excision of Stomach, Via Natural or Artificial Opening Endoscopic, Diagnostic (ICD-10-PCS; principal; 2017-07-03 10:10)
DX: K29.50 Unspecified chronic gastritis without bleeding (principal); K56.609 Unspecified intestinal obstruction, unspecified as to partial versus complete obstruction; K75.9 Inflammatory liver disease, unspecified; K86.1 Other chronic pancreatitis; K92.2 Gastrointestinal hemorrhage, unspecified; K44.9 Diaphragmatic hernia without obstruction or gangrene; K20.9 Esophagitis, unspecified; I12.9 Hypertensive chronic kidney disease with stage 1 through stage 4 chronic kidney disease, or unspecified chronic kidney disease; K27.9 Peptic ulcer, site unspecified, unspecified as acute or chronic, without hemorrhage or perforation; J44.9 Chronic obstructive pulmonary disease, unspecified; I25.10 Atherosclerotic heart disease of native coronary artery without angina pectoris; G40.909 Epilepsy, unspecified, not intractable, without status epilepticus; E87.6 Hypokalemia; E78.5 Hyperlipidemia, unspecified; E78.00 Pure hypercholesterolemia, unspecified; D72.829 Elevated white blood cell count, unspecified; N18.9 Chronic kidney disease, unspecified; N20.0 Calculus of kidney; Z90.49 Acquired absence of other specified parts of digestive tract

== ENCOUNTER 2018-04-15 09:24 | Day surgery (SDC) | payer OTHER ==
[2018-04-15] MEDS ORDERED: Propofol 10 mg/ml Inj (20 ML) ONE (12:06)
[2018-04-15] MEDS ORDERED: Midazolam 2 MG/2 ML VIAL ONE (12:06)
[2018-04-15] MEDS ORDERED: Oxycodone/Acetaminophen 5/325 mg Tab PO PRN (12:16)
[2018-04-15] MEDS ORDERED: cefTRIAXone 1 gm 1 GM/100 ML BAG IVPB ONE (12:49)
[2018-04-15] MEDS: HYDROmorphone 0.5 mg/0.5 ml ISec IVP PRN ×2 (12:55→13:55)
[2018-04-15 14:59] VITALS: RESP 16
[2018-04-15 16:36] VITALS: BP 155/75; PULSE 75; TEMP 98; O2SAT 98
--- NOTE | 2018-04-16 19:42 | CARD ---
APPROVED REPORT Date of service: 04/15/2018 EKG Measurement Heart [id number] OR [id number] <Conclusion> Normal sinus rhythm Normal ECG
--- NOTE | 2018-04-21 08:53 | OP ---
Copied To: Frederic Regan MD Attending MD: Frederic Regan MD PROCEDURE DATE: 04/15/2018 PREOPERATIVE DIAGNOSES: Hematuria, recurrent infections, pelvic pain. POSTOPERATIVE DIAGNOSES: Hematuria, recurrent infections, pelvic pain. PROCEDURES: Exam under anesthesia, cystoscopy, bladder biopsy and fulguration. SURGEON: Frederic Regan MD COMPLICATIONS: There were no complications. INDICATIONS: See history and physical for further details. In brief, very pleasant lady, who has recurrent episodes of infection and pain. After discussing options with the patient, she is here for workup as listed above. OPERATIVE FINDINGS: 1. No pelvic or rectal masses. 2. There is some more erythema than you would expect, the possibility for carcinoma in situ exists, so we did a biopsy and fulguration. 3. Otherwise, no other abnormalities appreciated. DESCRIPTION OF PROCEDURE: After obtaining informed consent, the patient was placed on the table. Routine monitors were placed. Time-out was called. We confirmed the patient position. Antibiotic prophylaxis were used. Cystoscopy via urethra. No abnormalities were detected there. The meatus was normal. Ureteral orifices . Further inspection of the bladder with a 37 lens reveals some erythema in the posterior portion of the bladder. Just to rule out carcinoma in situ, we took a small biopsy sample and then we fulgurated the base. Pre and post biopsy pictures were taken and placed on the chart. The patient tolerated the procedure well. The bladder was emptied. Cystoscope removed. Exam under anesthesia revealed normal external genitalia. No pelvic or rectal masses are detected. The patient tolerated the procedure well without complication. ADDENDUM: We will check her pathology and we will discuss further options. Options such as behavioral therapy, diet modifications, etc., and then further plans to follow up again. Frederic Regan MD
--- NOTE | 2018-04-21 19:30 | HP ---
Copied To: Frederic Regan MD Attending MD: Frederic Regan MD UROLOGY ADMISSION REASON FOR ADMISSION: Workup of recurrent infection. HISTORY OF PRESENT ILLNESS: A very pleasant lady from multiple urology problems previously with hematuria, recurrent infection, pelvic pain, and back pain. Previous workup, no obvious pathology or etiology. It has been a while since her last workup and she is here now for further workup including cystoscopy. PAST MEDICAL AND SURGICAL HISTORY: She is a patient of Dr. Staley and other medical doctor as well. No other interim medical changes. REVIEW OF SYSTEMS: Listed above. Noncontributory. No recurrent weight loss, constitutional complaints, night sweats, etc. MEDICATIONS: See the chart. ALLERGIES: NONE. SOCIAL HISTORY: Essentially otherwise unremarkable. PHYSICAL EXAMINATION: GENERAL: A well-nourished female, in no apparent distress. VITAL SIGNS: Within normal limits, included in the chart. LYMPH NODES: No cervical or axillary lymphadenopathy. LUNGS: Clear. HEART: Normal S1 and S2. ABDOMEN: Overall soft. No CVA tenderness. PELVIC: . No pelvic or rectal masses. NEUROLOGIC: Otherwise unremarkable. EXTREMITIES: Noted. LABORATORY DATA: See the chart. DIAGNOSES: 1. Recurrent infection. 2. Hematuria. 3. Pelvic pain. ASSESSMENT AND PLAN: In summary, a very pleasant lady doing quite well. We discussed options in the past periodically doing further diagnostic studies to make sure they are not overlooking anything specifically or hematuria that she does not have any underlying malignancy. So after discussing options with the patient, the plan as follows: 1. The patient will be brought in to the Same Day Unit. 2. We are going to plan for a cystoscopy. 3. Possible retrograde pyelograms. 5. Possible biopsy. Regarding we find clinically, risks and benefits were discussed with the patient at length. We will plan to proceed. Frederic Regan MD
== END 2018-04-15 16:47 | disposition home or self-care (01) ==
LOC: C.SDS 09:24
PROVIDERS: ATTEND Urology
DX: N02.9 Recurrent and persistent hematuria with unspecified morphologic changes (principal); N39.0 Urinary tract infection, site not specified; Z87.440 Personal history of urinary (tract) infections
CPT/HCPCS: 52204; 88305; 93005; J0696; J1170

== ENCOUNTER 2018-12-07 07:14 | Day surgery (SDC) | payer OTHER | END 2018-12-07 11:22 | disposition home or self-care (01) | LOC: C.ENDO 07:14 | DX: R19.7 Diarrhea, unspecified (principal) ==

== ENCOUNTER 2018-12-09 07:09 | Day surgery (SDC) | payer OTHER ==
[2018-12-09 07:46] VITALS: BMI 37.3
[2018-12-09] MEDS ORDERED: Lactated Ringer's 500 ML IV ONE ×2 (08:34)
--- NOTE | 2018-12-09 08:40 | CP.SDSHP ---
Same Day Surgery H & P - History Proposed Procedure: EGD Pre-Op Diagnosis: SEE NOTES - Previous Medical/Surgical History Cardiac: Hypertension Pulmonary: Asthma Endocrine/Metabolic: Other Neuro: Seizure Disorder, Other Misc: Other Pain: 4.Moderate Pain - Allergies Allergies: Allergies acetaminophen [From Tylenol] Allergy (Intermediate, Verified 12/09/18 07:36) RASH codeine Allergy (Intermediate, Verified 12/09/18 07:36) RASH ketorolac tromethamine [From Toradol] Allergy (Intermediate, Verified 12/09/18 07:36) RASH oxycodone HCl [From Percocet] Allergy (Intermediate, Verified 12/09/18 07:36) RASH paroxetine HCl [From Paxil] Allergy (Intermediate, Verified 12/09/18 07:36) RASH propoxyphene napsylate [From Darvocet-N] Allergy (Intermediate, Verified 12/09/18 07:36) RASH - Physical Exam General Appearance: N Vital Signs: Vital Signs 12/09/18 12/09/18 07:30 08:01 Temperature 97.9 F Pulse Rate 68 68 Respiratory 19 Rate Blood Pressure 153/86 H O2 Sat by Pulse 97 Oximetry Mental Status: Alert & Oriented x3 Neuro: Other Heart: Other Lungs: Other GI: Other - {Optional Preform as Required} Breast: WNL Abdomen: Other Rectal: Other Integument: WNL : WNL Ortho: WNL ENT: WNL - Impression Pt. Evaluated Today:Candidate for Anesthesia & Procedure: Yes - Date & Time Time: 08:40 Short Stay Discharge - Short Stay Discharge Admitting Diagnosis/Reason for Visit: DYSPEPSIA Disposition: HOME/ ROUTINE
[2018-12-09] MEDS ORDERED: Midazolam 2 MG/2 ML VIAL ONE ×2 (08:55→09:07)
[2018-12-09] MEDS ORDERED: Propofol 10 mg/ml Inj (20 ML) ONE ×2 (08:55)
[2018-12-09 09:47] VITALS: TEMP 96.8
[2018-12-09 11:49] VITALS: BP 115/63; PULSE 72; RESP 18; O2SAT 95
--- NOTE | 2018-12-09 14:49 | CP.PCM.PN ---
Subjective - Date & Time of Evaluation Date of Evaluation: 12/09/18 Time of Evaluation: 14:00 - Subjective Subjective: At end of EGD, patient woke up and then subsequently had questionable seizure- like activity. Patient's eyes were closed, and she was shaking her right arm. She was given 2 mg of midazolam, and shortly after, her symptoms resolved. In PACU, VSS, she was fully awake and conversant with no complaints. It is not clear if this was a real seizure or malingering. According to Dr. Pena and endoscopy RNs, patient has a history of such behavior after procedures, and, late last year, she was admitted to the hospital for observation after a similar episode. I discussed the case with patient's neurologist, Dr. Julio C Contreras , who also told me that he is aware of her history of seizure-like episodes around the time of procedures but thinks that they are unlikely to be real seizures He felt that patient was safe to discharge home today and will follow-up with her in the office. Objective - Vital Signs/Intake and Output Vital Signs (last 24 hours): Temp Pulse Resp BP Pulse Ox 96.8 F L 72 18 115/63 95 12/09/18 09:10 12/09/18 11:48 12/09/18 11:48 12/09/18 11:48 12/09/18 11:48
== END 2018-12-09 12:45 | disposition home or self-care (01) ==
LOC: C.ENDO 07:09
PROVIDERS: ATTEND Specialist
DX: B37.81 Candidal esophagitis (principal); K29.50 Unspecified chronic gastritis without bleeding; K44.9 Diaphragmatic hernia without obstruction or gangrene
CPT/HCPCS: 43239; 88305; J2001; J2250; J2704; J7120